=== PATIENT | female | born 1985 | race Caucasian/White ===

== ENCOUNTER 2022-04-30 18:49 | Inpatient (IN) | payer MEDICAID, SELFPAY ==
--- NOTE | ~2022-04-30 | US_ITS ---
EXAMINATION: US ABDOMEN COMPLETE CLINICAL INFORMATION: Pancreatitis. COMPARISON: CT abdomen pelvis on 04/30/2022 TECHNIQUE: Real-time imaging of the abdominal viscera. FINDINGS: PANCREAS: Mild enlargement. Limited visualization of the pancreatic head. ABDOMINAL AORTA: The proximal, mid, and distal segments are normal in caliber. INFERIOR VENA CAVA: Visualized portions are normal. LIVER: The liver is normal in size. The liver contour is normal. There is diffuse increased liver parenchymal echogenicity, consistent with hepatic steatosis. No focal hepatic lesion. There is no intrahepatic biliary duct dilatation seen. GALLBLADDER: There is adenomyomatosis of the gallbladder fundus. The gallbladder is physiologically distended without evidence of stones, sludge, polyps, wall thickening or pericholecystic fluid. COMMON BILE DUCT: Normal in caliber measuring 0.9 cm in diameter. RIGHT KIDNEY: Normal. No hydronephrosis. No renal calculi or focal parenchymal lesions. The kidney measures 10.1 cm in maximum dimension. LEFT KIDNEY: Normal. No hydronephrosis. No renal calculi or focal parenchymal lesions. The kidney measures 9.9 cm in maximum dimension. SPLEEN: Normal. The spleen measures 9.7 cm in maximum dimension. FREE FLUID: Trace US/US abdomen complete IMPRESSION: 1. Adenomyomatosis of the gallbladder fundus. 2. Enlargement of the pancreatic head consistent with pancreatitis. 3. Hepatic steatosis.
--- NOTE | ~2022-04-30 | CT_ITS ---
EXAMINATION: CT ABDOMEN AND PELVIS WITH CONTRAST CLINICAL INFORMATION: Acute pancreatitis COMPARISON: CT abdomen pelvis 05/04/2019 TECHNIQUE: Multidetector volumetric images were obtained from the superior aspect of the liver through the pubic symphysis following administration 85 mL of Omnipaque 350 intravenous contrast. Sagittal and coronal reformatted images were obtained on the technologist's workstation. Oral contrast: No This CT examination was performed using dose optimization techniques as appropriate, variously including the following: *Automated exposure control *Adjustment of mA and/or kV according to patient size (this includes techniques or standardized protocols for targeted exams where dose is matched to indication/reason for exam; i.e. extremities or head) *Use of iterative reconstruction technique DLP: Fluoroscopy for mGy-cm FINDINGS: LUNG BASES: The visualized lung bases are unremarkable. LIVER, GALLBLADDER, AND BILIARY TREE: The liver is enlarged measuring 20 cm in cephalocaudad dimension with decreased attenuation consistent with hepatic steatosis. Some small cysts are present in the liver the largest in the right lobe measuring just under 1 cm in size (3:17). No worrisome solid focal hepatic lesion or biliary ductal dilatation is present. The gallbladder is unremarkable with no evidence of radiopaque gallstones, gallbladder wall thickening, or obvious pericholecystic inflammatory changes. PANCREAS: Edematous changes are present in the pancreas with surrounding fluid extending into the left anterior pararenal space and lateral clonal fascia down into the pelvis. No pancreatic calcifications are seen. The head of the pancreas is rounded and full with a 1.7 cm cystic area within the pancreatic head, possibly a small pseudocyst. SPLEEN: Unremarkable. ADRENAL GLANDS: Unremarkable. KIDNEYS AND URETERS: The kidneys are normal in size, shape, and attenuation. Moderately extensive bilateral nephrolithiasis seen on the 2019 study is not present on the current study. No hydronephrosis, hydroureter, or calculi seen. No perinephric stranding. BLADDER: Unremarkable. GASTROINTESTINAL TRACT: The small and large bowel are unremarkable. The appendix is unremarkable. ABDOMINAL WALL: No significant hernia is appreciated. LYMPH NODES: Normal. VASCULAR: Mesenteric vessels are all patent. The splenic vein is patent. PELVIC VISCERA: Normal-appearing anteverted uterus. Free fluid is present in the cul-de-sac. OSSEOUS STRUCTURES: Unremarkable. CT/CT abdomen pelvis w con IMPRESSION: 1. Peripancreatic edema and adjacent fluid. No drainable fluid collections are seen. Findings are consistent with acute pancreatitis. Probable pseudocyst in the pancreatic head. 2. Incidental note made of an enlarged fatty liver and resolution of previously seen bilateral nephrolithiasis Fleischner guidelines were followed.
[2022-04-30 20:05] VITALS: BP 180/110; PULSE 77; RESP 18; TEMP 35.8; O2SAT 100; BMI 28.3
--- NOTE | 2022-04-30 20:07 | ECG_ITS ---
Test Reason : CHEST PAIN Blood Pressure : / mmHG Vent. Rate : 069 BPM Atrial Rate : 069 BPM P-R Int : 146 ms QRS Dur : 072 ms QT Int : 414 ms P-R-T Axes : 044 030 040 degrees QTc Int : 443 ms Normal sinus rhythm Normal ECG No previous ECGs available Referred By: Generic ED Physician Electronically Signed By:AARON SPARKS
[2022-04-30 20:24] LABS: MANUAL DIFF FLAG NO
[2022-04-30 20:27] LABS: Basophils Percent Auto 0.2 % (0-2); Eosinophils Absolute Auto 0.2 X10*3/uL (0.0-0.4); Eosinophils Percent Auto 0.9 % (0-4); Hemoglobin 14.4 g/dl (12.0-16.0); Imm Gran Abs Auto 0.09 X10*3/uL (0.00-0.03); Imm Gran Pct Auto 0.5 % (0.0-0.4); Lymphocytes Absolute Auto 1.6 X10*3/uL (1.2-4.9); Lymphocytes Percent Auto 8.6 % (20-40); Mean Corpuscular HGB Conc 36.9 g/dl (31.0-35.0); Mean Corpuscular Hemoglobin 35.9 pg (27.0-33.0); Mean Corpuscular Volume 97.3 fL (80.0-98.0); Mean Platelet Volume 9.2 fL (9.4-12.3); Monocytes Percent Auto 5.5 % (2-11); Neutrophils Absolute Auto 15.3 x10*3/uL (2.0-8.3); Neutrophils Percent Auto 84.3 % (45-73); Platelet Count 225 X10*3/uL (160-400); Red Blood Count 4.01 X10*6/uL (4.20-5.50); Red Cell Distribution Width 12.2 % (11.0-16.0); White Blood Count 18.1 X10*3/uL (4.8-10.8)
[2022-04-30 20:43] LABS: COVID-19 Test Negative (Negative); IDNOW Serial# 16C4AD1C
[2022-04-30 20:46] LABS: Troponin-I High Sensitivity 3.7 ng/L (<3.5-17.0)
[2022-04-30 20:48] LABS: Alanine Aminotransferase 19 U/L (0-31); Albumin Level 3.9 g/dL (3.5-5.0); Alkaline Phosphatase 153 U/L (39-117); Anion Gap 19 (12-20); Aspartate Amino Transferase 51 U/L (5-31); Bilirubin Direct 0.5 mg/dL (0.0-0.5); Bilirubin Total 1.2 mg/dL (0.0-1.0); Blood Urea Nitrogen 3 mg/dL (9-16); Calcium 8.4 mg/dL (8.4-10.2); Carbon Dioxide 25 mmol/L (22-29); Chloride 97 mmol/L (96-108); Estimated Glomerular Filt Rate > 60; Glucose Random 118 mg/dL (60-115); Potassium 3.2 mmol/L (3.3-5.1); Sodium 138 mmol/L (135-145)
[2022-04-30 21:05] LABS: Lipase 1655 U/L (8-78)
[2022-04-30 22:13] VITALS: BP 151/104; PULSE 84; RESP 14; TEMP 36.6; O2SAT 100
--- NOTE | 2022-04-30 22:18 | ED_ITS ---
HPI - Chest Pain General Chief Complaint: Chest Pain Stated Complaint: Abdominal Pain Time Seen by Provider: 04/30/22 22:18 Related Data Allergies Allergy/AdvReac Type Severity Reaction Status Date / Time No Known Allergies Allergy Unverified 05/19/20 18:33 [facility] Social History Social History Alcohol intake: current Alcohol intake frequency: a few times a week Patient Tobacco Use Status: Current everyday Tobacco user Smoked in Last 30 Days: Yes Use of substances other than those prescribed or required for medical reasons: No Physical Exam Vital Signs: Vital Signs: Last Vital Signs Temp 97.8 F 04/30/22 22:13 Pulse 84 04/30/22 22:13 Resp 14 04/30/22 22:13 BP 151/104 H 04/30/22 22:13 Pulse Ox 100 04/30/22 22:13 O2 Del Method 04/30/22 22:13 BMI result Body Mass Index 28.3 MDM - Chest Pain Lab Data Result diagrams: 04/30/22 20:20 04/30/22 20:20 Labs: Lab Results 04/30/22 04/30/22 04/30/22 Range/Units 20:20 20:20 20:20 WBC 18.1 H (4.8-10.8) X10*3/uL RBC 4.01 L (4.20-5.50) X10*6/uL Hgb 14.4 (12.0-16.0) g/dl Hct 39.0 (37.0-47.0) % MCV 97.3 (80.0-98.0) fL MCH 35.9 H (27.0-33.0) pg MCHC 36.9 H (31.0-35.0) g/dl RDW 12.2 (11.0-16.0) % Plt Count 225 (160-400) X10*3/uL MPV 9.2 L (9.4-12.3) fL Immature Gran % (Auto) 0.5 H (0.0-0.4) % Neut % (Auto) 84.3 H (45-73) % Lymph % (Auto) 8.6 L (20-40) % [place] % (Auto) 5.5 (2-11) % Eos % (Auto) 0.9 (0-4) % Baso % (Auto) 0.2 (0-2) % Lymph # (Auto) 1.6 (1.2-4.9) X10*3/uL [place] # (Auto) 1.0 (0.1-1.2) X10*3/uL Eos # (Auto) 0.2 (0.0-0.4) X10*3/uL Baso # (Auto) 0.0 (0.0-0.2) X10*3/uL Abs Immat Gran (auto) 0.09 H (0.00-0.03) X10*3/uL Absolute Neuts (auto) 15.3 H (2.0-8.3) x10*3/uL Absolute Nucleated RBC 0.000 (0.0-0.012) X10*3/uL Nucleated RBC % (auto) 0.0 (0.0-0.2) /100WBC Sodium 138 (135-145) mmol/L Potassium 3.2 L (3.3-5.1) mmol/L Chloride 97 (96-108) mmol/L Carbon Dioxide 25 (22-29) mmol/L Anion Gap 19 (12-20) BUN 3 L (9-16) mg/dL Creatinine 0.74 (0.5-1.4) mg/dL Estim Creat Clear Calc 110.0 Estimated GFR > 60 Random Glucose 118 H (60-115) mg/dL Calcium 8.4 (8.4-10.2) mg/dL Total Bilirubin 1.2 H (0.0-1.0) mg/dL Direct Bilirubin 0.5 (0.0-0.5) mg/dL AST 51 H (5-31) U/L ALT 19 (0-31) U/L Alkaline Phosphatase 153 H (39-117) U/L Troponin I High Sens 3.7 (<3.5-17.0) ng/L Total Protein 7.0 (6.5-8.0) g/dL Albumin 3.9 (3.5-5.0) g/dL Lipase 1655 H (8-78) U/L COVID-19 (STEPHENIE) (Negative) COVID-19 Clin Com 04/30/22 Range/Units 20:20 WBC (4.8-10.8) X10*3/uL RBC (4.20-5.50) X10*6/uL Hgb (12.0-16.0) g/dl Hct (37.0-47.0) % MCV (80.0-98.0) fL MCH (27.0-33.0) pg MCHC (31.0-35.0) g/dl RDW (11.0-16.0) % Plt Count (160-400) X10*3/uL MPV (9.4-12.3) fL Immature Gran % (Auto) (0.0-0.4) % Neut % (Auto) (45-73) % Lymph % (Auto) (20-40) % [place] % (Auto) (2-11) % Eos % (Auto) (0-4) % Baso % (Auto) (0-2) % Lymph # (Auto) (1.2-4.9) X10*3/uL [place] # (Auto) (0.1-1.2) X10*3/uL Eos # (Auto) (0.0-0.4) X10*3/uL Baso # (Auto) (0.0-0.2) X10*3/uL Abs Immat Gran (auto) (0.00-0.03) X10*3/uL Absolute Neuts (auto) (2.0-8.3) x10*3/uL Absolute Nucleated RBC (0.0-0.012) X10*3/uL Nucleated RBC % (auto) (0.0-0.2) /100WBC Sodium (135-145) mmol/L Potassium (3.3-5.1) mmol/L Chloride (96-108) mmol/L Carbon Dioxide (22-29) mmol/L Anion Gap (12-20) BUN (9-16) mg/dL Creatinine (0.5-1.4) mg/dL Estim Creat Clear Calc Estimated GFR Random Glucose (60-115) mg/dL Calcium (8.4-10.2) mg/dL Total Bilirubin (0.0-1.0) mg/dL Direct Bilirubin (0.0-0.5) mg/dL AST (5-31) U/L ALT (0-31) U/L Alkaline Phosphatase (39-117) U/L Troponin I High Sens (<3.5-17.0) ng/L Total Protein (6.5-8.0) g/dL Albumin (3.5-5.0) g/dL Lipase (8-78) U/L COVID-19 (STEPHENIE) Negative (Negative) COVID-19 Clin Com See Note
--- NOTE | 2022-04-30 22:28 | PC.NURSE ---
Pt started having chest and abdominal pain two days ago. n/v earlier today, vomiting x1.
--- NOTE | 2022-04-30 22:34 | ED.ABDPAIN ---
HPI - Abdominal Pain General Chief Complaint: Chest Pain Stated Complaint: Abdominal Pain Time Seen by Provider: 04/30/22 22:18 Source: patient Mode of arrival: ambulatory Limitations: no limitations History of Present Illness HPI narrative: Patient 36yrs is old female with history of alcohol use last drink was 3 days ago noticed pain in mid abdomen since yesterday with nausea radiating to the back and upper abdomen pain gets worse when she eats or drinks patient patient been having off and on dull pain for last 1 month getting worse now no fever or chills no history of gallstone /pancreatitis in the past Related Data Allergies Allergy/AdvReac Type Severity Reaction Status Date / Time No Known Allergies Allergy Unverified 05/19/20 18:33 Review of Systems Review of Systems Yes all other systems are reviewed and are negative [facility] Social History Social History Alcohol intake: current Alcohol intake frequency: a few times a week Patient Tobacco Use Status: Current everyday Tobacco user Smoked in Last 30 Days: Yes Use of substances other than those prescribed or required for medical reasons: No Advance Directives: No Advance Directives Information Provided: No Physical Exam ED Vital Signs: Vital Signs - 24 hr 04/30/22 20:05 04/30/22 22:13 04/30/22 22:49 Temperature 96.4 F L 97.8 F Pulse Rate 77 84 Respiratory Rate 18 14 15 Blood Pressure 180/110 H 151/104 H Pulse Oximetry 100 100 Oxygen Delivery Method Room Air Room Air BMI result Body Mass Index 28.3 Appearance: Alert. Oriented X3. In moderate distress Eyes: PERRLA, No Nystagmus no pallor or icterus ENT: Pharynx normal. Oral Mucosa moist Neck: Normal inspection. Neck supple. CVS: Normal heart rate and rhythm. Pulses normal. Respiratory: No respiratory distress. Equal air entry bilateral, no wheezing/rales/rhonchi Abdomen: Soft, tenderness mid abdomen with guarding no rebound tenderness Bowel sounds are present, no mass palpable, no CVA tenderness Skin: Skin warm and dry. Normal skin color. Normal skin turgor. Extremities: No lower extremity edema. No calf tenderness Neuro: Oriented X 3. MDM - Abdominal Pain MDM Narrative Medical decision making narrative: Patient's elevated lipase alcohol use clinically a pancreatitis will get CT scan abdomen to rule out gallstones. Plan to admit for IV hydration and pain med 0035 CT scan showed diffuse pancreatitis with small pseudocyst will admit patient for IV hydration pain management Differential Diagnosis Differential diagnosis: Likely pancreatitis and peptic ulcer disease Lab Data Attestation: I reviewed the patient's lab results. Result diagrams: 04/30/22 20:20 04/30/22 20:20 Labs: Lab Results 04/30/22 04/30/22 04/30/22 Range/Units 20:20 20:20 20:20 WBC 18.1 H (4.8-10.8) X10*3/uL RBC 4.01 L (4.20-5.50) X10*6/uL Hgb 14.4 (12.0-16.0) g/dl Hct 39.0 (37.0-47.0) % MCV 97.3 (80.0-98.0) fL MCH 35.9 H (27.0-33.0) pg MCHC 36.9 H (31.0-35.0) g/dl RDW 12.2 (11.0-16.0) % Plt Count 225 (160-400) X10*3/uL MPV 9.2 L (9.4-12.3) fL Immature Gran % (Auto) 0.5 H (0.0-0.4) % Neut % (Auto) 84.3 H (45-73) % Lymph % (Auto) 8.6 L (20-40) % [place] % (Auto) 5.5 (2-11) % Eos % (Auto) 0.9 (0-4) % Baso % (Auto) 0.2 (0-2) % Lymph # (Auto) 1.6 (1.2-4.9) X10*3/uL [place] # (Auto) 1.0 (0.1-1.2) X10*3/uL Eos # (Auto) 0.2 (0.0-0.4) X10*3/uL Baso # (Auto) 0.0 (0.0-0.2) X10*3/uL Abs Immat Gran (auto) 0.09 H (0.00-0.03) X10*3/uL Absolute Neuts (auto) 15.3 H (2.0-8.3) x10*3/uL Absolute Nucleated RBC 0.000 (0.0-0.012) X10*3/uL Nucleated RBC % (auto) 0.0 (0.0-0.2) /100WBC Sodium 138 (135-145) mmol/L Potassium 3.2 L (3.3-5.1) mmol/L Chloride 97 (96-108) mmol/L Carbon Dioxide 25 (22-29) mmol/L Anion Gap 19 (12-20) BUN 3 L (9-16) mg/dL Creatinine 0.74 (0.5-1.4) mg/dL Estim Creat Clear Calc 110.0 Estimated GFR > 60 Random Glucose 118 H (60-115) mg/dL Calcium 8.4 (8.4-10.2) mg/dL Total Bilirubin 1.2 H (0.0-1.0) mg/dL Direct Bilirubin 0.5 (0.0-0.5) mg/dL AST 51 H (5-31) U/L ALT 19 (0-31) U/L Alkaline Phosphatase 153 H (39-117) U/L Troponin I High Sens 3.7 (<3.5-17.0) ng/L Total Protein 7.0 (6.5-8.0) g/dL Albumin 3.9 (3.5-5.0) g/dL Lipase 1655 H (8-78) U/L Beta HCG, Quant < 2 mIU/mL COVID-19 (STEPHENIE) (Negative) COVID-19 Clin Com 04/30/22 Range/Units 20:20 WBC (4.8-10.8) X10*3/uL RBC (4.20-5.50) X10*6/uL Hgb (12.0-16.0) g/dl Hct (37.0-47.0) % MCV (80.0-98.0) fL MCH (27.0-33.0) pg MCHC (31.0-35.0) g/dl RDW (11.0-16.0) % Plt Count (160-400) X10*3/uL MPV (9.4-12.3) fL Immature Gran % (Auto) (0.0-0.4) % Neut % (Auto) (45-73) % Lymph % (Auto) (20-40) % [place] % (Auto) (2-11) % Eos % (Auto) (0-4) % Baso % (Auto) (0-2) % Lymph # (Auto) (1.2-4.9) X10*3/uL [place] # (Auto) (0.1-1.2) X10*3/uL Eos # (Auto) (0.0-0.4) X10*3/uL Baso # (Auto) (0.0-0.2) X10*3/uL Abs Immat Gran (auto) (0.00-0.03) X10*3/uL Absolute Neuts (auto) (2.0-8.3) x10*3/uL Absolute Nucleated RBC (0.0-0.012) X10*3/uL Nucleated RBC % (auto) (0.0-0.2) /100WBC Sodium (135-145) mmol/L Potassium (3.3-5.1) mmol/L Chloride (96-108) mmol/L Carbon Dioxide (22-29) mmol/L Anion Gap (12-20) BUN (9-16) mg/dL Creatinine (0.5-1.4) mg/dL Estim Creat Clear Calc Estimated GFR Random Glucose (60-115) mg/dL Calcium (8.4-10.2) mg/dL Total Bilirubin (0.0-1.0) mg/dL Direct Bilirubin (0.0-0.5) mg/dL AST (5-31) U/L ALT (0-31) U/L Alkaline Phosphatase (39-117) U/L Troponin I High Sens (<3.5-17.0) ng/L Total Protein (6.5-8.0) g/dL Albumin (3.5-5.0) g/dL Lipase (8-78) U/L Beta HCG, Quant mIU/mL COVID-19 (STEPHENIE) Negative (Negative) COVID-19 Clin Com See Note Discharge Plan Discharge Clinical Impression: Acute alcoholic pancreatitis Patient Disposition: Admitted As Inpatient
[2022-04-30] MEDS: 0.9 % Sodium Chloride 1,000 ML 999 ML IV (22:42)
[2022-04-30] MEDS: Famotidine/PF 20 MG/2 ML VIAL IVPUSH (22:47)
[2022-04-30] MEDS: ondansetron HCL 4 MG/2 ML VIAL IVPUSH (22:48)
[2022-04-30 22:49] VITALS: RESP 15
[2022-04-30] MEDS: Morphine Sulfate 4 MG/ML CARTRIDGE IVPUSH (22:49)
--- NOTE | 2022-04-30 23:01 | PC.NURSE ---
Administered meds per MAR.
[2022-04-30 23:06] LABS: HCG Quantitative < 2 mIU/mL
[2022-04-30] MEDS: iohexoL 350 MG/ML 100 ML INFUS..BTL 85 ML IV (23:40)
--- NOTE | 2022-05-01 | ECG_ITS ---
Test Reason : hypokalemia Blood Pressure : / mmHG Vent. Rate : 075 BPM Atrial Rate : 075 BPM P-R Int : 146 ms QRS Dur : 076 ms QT Int : 408 ms P-R-T Axes : 036 030 026 degrees QTc Int : 455 ms Normal sinus rhythm Normal ECG When compared with ECG of 30-APR-2022 20:09, T wave inversion no longer evident in Septal leads Referred By: Jose Eduardo Blevins Electronically Signed By:AARON SPARKS
[2022-05-01] MEDS: 0.9 % Sodium Chloride 1,000 ML 999 ML IV (00:38)
--- NOTE | 2022-05-01 00:39 | P.HPHOSP_ITS ---
History of Present Illness Date of Service: 05/01/22 Chief Complaint: abd pain 36-year-old female with a past medical history of hypertension, tobacco dependence, alcohol abuse, opiate dependence on Suboxone presented to the hospital today with a chief complaint of abdominal pain. Patient reports that for the past 3 days she has been having abdominal pain located in the epigastrium, nonradiating, associated nausea and vomiting. Denies any diarrhea. Denies any blood in the vomitus. Mentioned that she had alcohol on last Saturday. Denies any fever chills. Denies any chest pain or palpitations. Review of all other systems is negative except mentioned above ER course: Per ER team patient noted to have epigastric tenderness; CT scan showed findings concerning for acute pancreatitis along with the pseudocyst from. Lipase elevated to 60 0s. Patient was given pain medications, Zosyn. Admitted to the hospital for further management. [facility] Social History Alcohol intake: current Alcohol intake frequency: a few times a week Patient Tobacco Use Status: Current everyday Tobacco user Smoked in Last 30 Days: Yes Use of substances other than those prescribed or required for medical reasons: No Advance Directives: No Advance Directives Information Provided: No Meds Allergies Allergy/AdvReac Type Severity Reaction Status Date / Time No Known Allergies Allergy Unverified 05/19/20 18:33 Active Medications: Current Medications Piperacillin Sod/Tazobactam (Sod 3.375 gm/ Sodium Chloride) 50 mls @ 100 mls/hr IV ONCE ONE Stop: 05/01/22 01:01 Physical Exam Vital Signs and Narrative: Vital Signs: Last Vital Signs Temp 97.8 F 04/30/22 22:13 Pulse 84 04/30/22 22:13 Resp 15 04/30/22 22:49 BP 151/104 H 04/30/22 22:13 Pulse Ox 100 04/30/22 22:13 O2 Del Method 04/30/22 22:13 BMI result Body Mass Index 28.3 Gen: Appears be in no acute distress HEENT: NCAT, Moist mucosa. Pulmonary: Vesicular breath sounds, fair air entry CVS: Normal S1-S2 Abdomen: BS+, Soft, tender in the epigastrium, no guarding no rigidity Extremities: Warm well perfused Neuro: Alert and awake. Results Labs CBC and Chem 7: 05/01/22 04:42 05/01/22 04:42 Labs: Laboratory Results - last 24 hr 04/30/22 04/30/22 04/30/22 20:20 20:20 20:20 MCV 97.3 MCH 35.9 H MCHC 36.9 H RDW 12.2 Plt Count 225 MPV 9.2 L Immature Gran % (Auto) 0.5 H Neut % (Auto) 84.3 H Lymph % (Auto) 8.6 L [place] % (Auto) 5.5 Eos % (Auto) 0.9 Baso % (Auto) 0.2 Lymph # (Auto) 1.6 [place] # (Auto) 1.0 Eos # (Auto) 0.2 Baso # (Auto) 0.0 Abs Immat Gran (auto) 0.09 H Absolute Neuts (auto) 15.3 H Absolute Nucleated RBC 0.000 Nucleated RBC % (auto) 0.0 Anion Gap 19 Estim Creat Clear Calc 110.0 Estimated GFR > 60 Random Glucose 118 H Calcium 8.4 Total Bilirubin 1.2 H Direct Bilirubin 0.5 AST 51 H ALT 19 Alkaline Phosphatase 153 H Total Protein 7.0 Albumin 3.9 Lipase 1655 H Beta HCG, Quant < 2 COVID-19 (STEPHENIE) Negative COVID-19 Clin Com See Note Imaging Radiologist's Impressions: Impressions Abdomen/Pelvis CT 04/30/22 23:40 IMPRESSION: 1. Peripancreatic edema and adjacent fluid. No drainable fluid collections are seen. Findings are consistent with acute pancreatitis. Probable pseudocyst in the pancreatic head. 2. Incidental note made of an enlarged fatty liver and resolution of previously seen bilateral nephrolithiasis Fleischner guidelines were followed. Assessment and Plan (1) Acute alcoholic pancreatitis: Status: Acute Plan 36-year-old female with a past medical history of hypertension, tobacco dependence, alcohol abuse, opiate dependence on Suboxone presented to the hospital today with a chief complaint of abdominal pain. Noted to have acute pancreatitis. Admitted for further management. Acute pancreatitis: In the setting of alcohol use. CT scan showed peripancreatic edema and adjacent fluid-no drainable fluid collection; probable pseudocyst in the pancreatic head. Pain control IV fluids General surgery consult Will also consult Gastroenterology Hypokalemia: Likely in setting of poor intake. Repleted. Will also give magnesium IV x1. History of opiate dependence: Patient on Suboxone. Addiction Medicine consult. DVT prophylaxis: Lovenox Code status: Full code Quality Stroke Does the patient have a stroke diagnosis?: No VTE Prior VTE?: No VTE Risk Level:: Medical - moderate - high VTE Device Contraindication: Treatment Not Indicated VTE Drug Contraindication: N/A - Med Ordered
[2022-05-01 01:14] LABS: Lactic Acid 1.4 mmol/L (0.5-2.0)
[2022-05-01] MEDS: Enoxaparin Sodium 40 MG/0.4 ML SYRINGE SUBCUT (01:28)
[2022-05-01] MEDS: Piperacillin Sodium/Tazobactam 3.375 GM in 0.9 % Sodium Chloride 50 ML IV (01:28)
[2022-05-01 01:34] VITALS: BP 105/63; PULSE 74; RESP 16; TEMP 36.8; O2SAT 99
[2022-05-01] MEDS: 0.9 % Sodium Chloride 1,000 ML 100 ML IVCONT ×3 (02:15→17:50)
--- NOTE | 2022-05-01 02:32 | PC.NURSE ---
Asministered meds per OCT
--- NOTE | 2022-05-01 02:35 | PC.NURSE ---
No pain reported at this time. Pt is sleeping and being allowed to sleep.
[2022-05-01 05:02] LABS: MANUAL DIFF FLAG NO
[2022-05-01 05:03] LABS: Basophils Percent Auto 0.2 % (0-2); Eosinophils Absolute Auto 0.5 X10*3/uL (0.0-0.4); Eosinophils Percent Auto 3.2 % (0-4); Hematocrit 30.3 % (37.0-47.0); Hemoglobin 11.1 g/dl (12.0-16.0); Imm Gran Abs Auto 0.06 X10*3/uL (0.00-0.03); Imm Gran Pct Auto 0.4 % (0.0-0.4); Lymphocytes Absolute Auto 1.9 X10*3/uL (1.2-4.9); Lymphocytes Percent Auto 13.4 % (20-40); Mean Corpuscular HGB Conc 36.6 g/dl (31.0-35.0); Mean Corpuscular Hemoglobin 35.9 pg (27.0-33.0); Mean Corpuscular Volume 98.1 fL (80.0-98.0); Mean Platelet Volume 9.7 fL (9.4-12.3); Monocytes Absolute Auto 0.9 X10*3/uL (0.1-1.2); Monocytes Percent Auto 6.3 % (2-11); Neutrophils Absolute Auto 10.6 x10*3/uL (2.0-8.3); Neutrophils Percent Auto 76.5 % (45-73); Platelet Count 173 X10*3/uL (160-400); Red Blood Count 3.09 X10*6/uL (4.20-5.50); Red Cell Distribution Width 12.2 % (11.0-16.0); White Blood Count 13.9 X10*3/uL (4.8-10.8)
[2022-05-01 05:24] LABS: Anion Gap 14 (12-20); Blood Urea Nitrogen 2 mg/dL (9-16); Calcium 6.6 mg/dL (8.4-10.2); Carbon Dioxide 24 mmol/L (22-29); Chloride 107 mmol/L (96-108); Creatinine Clr Calc Pharmacy 133.4; Estimated Glomerular Filt Rate > 60; Glucose Random 102 mg/dL (60-115); Potassium 2.5 mmol/L (3.3-5.1); Sodium 142 mmol/L (135-145)
[2022-05-01] MEDS: Potassium Chloride ER 20 MEQ TAB.ER.PRT 40 MEQ PO (05:59)
[2022-05-01] MEDS: Potassium Chloride Packet 20 MEQ PACKET 40 MEQ PO (06:40)
[2022-05-01] MEDS: Magnesium Sulfate/D5W 1 GM/100 ML PIGGYBACK IV (06:42)
[2022-05-01] MEDS: 0.9 % Sodium Chloride Flush 3 ML SYRINGE IVFLUSH ×2 (07:56→17:46)
[2022-05-01 08:00] VITALS: BP 138/98; PULSE 78; RESP 17; TEMP 36.6; O2SAT 98
--- NOTE | 2022-05-01 08:02 | PHA.MEDREC ---
Pharmacy Consult ? Medication Reconciliation Pharmacy has completed the medication reconciliation. Patient reported all medications. Lindsey Richardosn, [facility]
[2022-05-01] MEDS: lisinopriL 10 MG TABLET PO (08:30)
[2022-05-01] MEDS: Multivitamin TABLET 1 TAB PO (08:30)
[2022-05-01] MEDS: HYDROmorphone HCl 0.5 MG/0.5 ML SYRINGE IVPUSH ×3 (08:33→18:51)
[2022-05-01] MEDS: Buprenorphine/Naloxone 8/2 mg FILM 1 FILM SUBLINGUAL (08:38)
--- NOTE | 2022-05-01 09:57 | MHC.CM.PN ---
CM met with Patient at bedside; Patient lives in a house with her and 2 year old Daughter and she is typically functionally independent and working as a Cook at a local restaurant. Patient has a history of Opiate dependence and she receives her Suboxone from [facility] in in [place]. Patient reports using Alcohol only a few times/week. Patient states that her Mother and her /Valery are her HCP Agents. Patient has received moderna/Covid vax X3 and her PCP is from [facility] in [place], [place].
--- NOTE | 2022-05-01 10:29 | HO.PM.IMPN ---
Subjective Subjective Date of Service: 05/01/22 Interval History: f/u on acute pancreatitis interval history: persistent abdominal pain, Review of Systems no n/v, abd pain, no fever Physical Exam Vital Signs: Vital Signs: Last Vital Signs Temp 97.9 F 05/01/22 08:00 Pulse 78 05/01/22 08:00 Resp 17 05/01/22 08:00 BP 138/98 H 05/01/22 08:00 Pulse Ox 98 05/01/22 08:00 O2 Del Method 05/01/22 08:00 BMI result Body Mass Index 28.3 General: AO X 3, no acute distress Resp: CTA bilateral CVS: S1,S2,RRR GI: +BS, NT, no distention Skin: No rash Neuro: motor grossly intact Psych: appropriate affect Objective Data Active Medications Acetaminophen (Acetaminophen 325 Mg Tablet) 650 mg PO Q6H PRN PRN Reason: Pain, Mild (Pain Scale 1-3) Buprenorphine/Naloxone (Buprenorphine/Naloxone 8/2 Mg Film) 1 film SUBLINGUAL DAILY [facility] Last Admin: 05/01/22 08:38 Dose: 1 film Documented By: JIMI Enoxaparin Sodium (Enoxaparin Sodium 40 Mg/0.4 Ml Syringe) 40 mg SUBCUT Q24H [facility] Last Admin: 05/01/22 01:28 Dose: 40 mg Documented By: RODRIGUEZ Hydromorphone HCl (Hydromorphone Hcl 0.5 Mg/0.5 Ml Syringe) 0.5 mg IVPUSH Q4H PRN; Protocol PRN Reason: Pain, Severe (Pain Scale 7-10) Last Admin: 05/01/22 08:33 Dose: 0.5 mg Documented By: JIMI Sodium Chloride (Ns) 1,000 mls @ 100 mls/hr IVCONT .Q10H [facility] Last Admin: 05/01/22 07:59 Dose: 100 mls/hr Documented By: JIMI Lisinopril (Lisinopril 10 Mg Tablet) 10 mg PO DAILY [facility]; Protocol Last Admin: 05/01/22 08:30 Dose: 10 mg Documented By: JIMI Melatonin (Melatonin 3 Mg Tablet) 6 mg PO BEDTIME PRN PRN Reason: Insomnia Multivitamins/Vitamin C (Multivitamin Tablet) 1 tab PO DAILY [facility] Last Admin: 05/01/22 08:30 Dose: 1 tab Documented By: JIMI Senna (Sennosides 8.6 Mg Tablet) 17.2 mg PO BEDTIME PRN PRN Reason: Constipation Sodium Chloride (0.9 % Sodium Chloride Flush 3 Ml Syringe) 3 ml IVFLUSH QSHIFT [facility] Last Admin: 05/01/22 07:56 Dose: 3 ml Documented By: JIMI Labs CBC & Chem 7: 05/01/22 04:42 05/01/22 04:42 Labs: Laboratory Results - last 24 hr 04/30/22 04/30/22 04/30/22 20:20 20:20 20:20 MCV 97.3 MCH 35.9 H MCHC 36.9 H RDW 12.2 Plt Count 225 MPV 9.2 L Immature Gran % (Auto) 0.5 H Neut % (Auto) 84.3 H Lymph % (Auto) 8.6 L [place] % (Auto) 5.5 Eos % (Auto) 0.9 Baso % (Auto) 0.2 Lymph # (Auto) 1.6 [place] # (Auto) 1.0 Eos # (Auto) 0.2 Baso # (Auto) 0.0 Abs Immat Gran (auto) 0.09 H Absolute Neuts (auto) 15.3 H Absolute Nucleated RBC 0.000 Nucleated RBC % (auto) 0.0 Anion Gap 19 Estim Creat Clear Calc 110.0 Estimated GFR > 60 Random Glucose 118 H Lactic Acid Calcium 8.4 Total Bilirubin 1.2 H Direct Bilirubin 0.5 AST 51 H ALT 19 Alkaline Phosphatase 153 H Total Protein 7.0 Albumin 3.9 Lipase 1655 H Beta HCG, Quant < 2 COVID-19 ([facility]) Negative COVID-19 Clin Com See Note 05/01/22 05/01/22 05/01/22 00:41 04:42 04:42 MCV 98.1 H MCH 35.9 H MCHC 36.6 H RDW 12.2 Plt Count 173 MPV 9.7 Immature Gran % (Auto) 0.4 Neut % (Auto) 76.5 H Lymph % (Auto) 13.4 L [place] % (Auto) 6.3 Eos % (Auto) 3.2 Baso % (Auto) 0.2 Lymph # (Auto) 1.9 [place] # (Auto) 0.9 Eos # (Auto) 0.5 H Baso # (Auto) 0.0 Abs Immat Gran (auto) 0.06 H Absolute Neuts (auto) 10.6 H Absolute Nucleated RBC 0.000 Nucleated RBC % (auto) 0.0 Anion Gap 14 Estim Creat Clear Calc 133.4 Estimated GFR > 60 Random Glucose 102 Lactic Acid 1.4 Calcium 6.6 L D Total Bilirubin Direct Bilirubin AST ALT Alkaline Phosphatase Total Protein Albumin Lipase Beta HCG, Quant COVID-19 ([facility]) COVID-19 Clin Com Assessment and Plan (1) Acute alcoholic pancreatitis: Status: Acute Plan 36-year-old female with a past medical history of hypertension, tobacco dependence, alcohol abuse, opiate dependence on Suboxone presented to the hospital today with a chief complaint of abdominal pain. Noted to have acute pancreatitis. Admitted for further management. Acute pancreatitis: In the setting of alcohol use. CT scan showed peripancreatic edema and adjacent fluid-no drainable fluid collection; probable pseudocyst in the pancreatic head. Pain control IV fluids General surgery consult Will also consult Gastroenterology Hypokalemia: Likely in setting of poor intake. Repleted. Will also give magnesium IV x1. History of opiate dependence: Patient on Suboxone. Addiction Medicine consult. DVT prophylaxis: Lovenox Code status: Full code Quality Stroke Does the patient have a stroke diagnosis?: No VTE Prior VTE?: No VTE Risk Level:: Medical - moderate - high VTE Device Contraindication: Treatment Not Indicated VTE Drug Contraindication: N/A - Med Ordered
[2022-05-01 11:15] VITALS: BP 137/97; PULSE 72; RESP 17; TEMP 37.3; O2SAT 98
[2022-05-01 15:52] VITALS: BP 140/94; PULSE 68; RESP 17; TEMP 36.7; O2SAT 97
--- NOTE | 2022-05-01 16:01 | PM.CNGS ---
History of Present Illness Consult details Consult date: 05/01/22 Narrative: 36-year-old female with known hypertension, on Suboxone, admitted last night because of epigastric pain. She states that this has been going for about 2-3 days prior to admission. She says that she had been drinking alcohol Saturday and Saturday, with beer and fireball. She says that starting Saturday, she had been having this upper abdominal pain. This had persisted yesterday so she came to the emergency room. She describes the pain as moderate to severe. She had a CAT scan showing findings consistent with acute pancreatitis with a question of pseudocyst. She says that she does not recall history of gallstones. She denies a history of hypertriglyceridemia. Review of Systems Constitutional: Constitutional: Denies chills and Denies fever(s) Cardiovascular: Cardiovascular: Denies chest pain, Denies dyspnea and Denies dyspnea on exertion Respiratory: Respiratory: Denies cough, Denies dyspnea and Denies dyspnea on exertion Gastrointestinal: Gastrointestinal: Denies hematochezia and Denies change in bowel habits Genitourinary: Genitourinary: Denies hematuria Musculoskeletal: Musculoskeletal: Denies back pain and Denies limited range of motion Neurologic: Denies focal weakness and Denies convulsions Psychiatric: Psychiatric: Denies depression and Denies mood swings PMFSH Social History Social History Household Members: Family Housing: House Do you presently have visiting nurse or other home services: No Alcohol intake: current Alcohol intake frequency: a few times a week Patient Tobacco Use Status: Current everyday Tobacco user Tobacco use type: Cigarette e-Cigarette/Vaping Use: Never Used Second Hand Smoke Exposure: No service: No Current occupational status: employed Meds Allergies Allergy/AdvReac Type Severity Reaction Status Date / Time No Known Allergies Allergy Unverified 05/19/20 18:33 Active Medications: Current Medications Acetaminophen (Acetaminophen 325 Mg Tablet) 650 mg PO Q6H PRN PRN Reason: Pain, Mild (Pain Scale 1-3) Buprenorphine/Naloxone (Buprenorphine/Naloxone 8/2 Mg Film) 1 film SUBLINGUAL DAILY [facility] Last Admin: 05/01/22 08:38 Dose: 1 film Enoxaparin Sodium (Enoxaparin Sodium 40 Mg/0.4 Ml Syringe) 40 mg SUBCUT Q24H [facility] Last Admin: 05/01/22 01:28 Dose: 40 mg Hydromorphone HCl (Hydromorphone Hcl 0.5 Mg/0.5 Ml Syringe) 0.5 mg IVPUSH Q4H PRN; Protocol PRN Reason: Pain, Severe (Pain Scale 7-10) Last Admin: 05/01/22 13:58 Dose: 0.5 mg Sodium Chloride (Ns) 1,000 mls @ 100 mls/hr IVCONT .Q10H [facility] Last Admin: 05/01/22 07:59 Dose: 100 mls/hr Lisinopril (Lisinopril 10 Mg Tablet) 10 mg PO DAILY [facility]; Protocol Last Admin: 05/01/22 08:30 Dose: 10 mg Melatonin (Melatonin 3 Mg Tablet) 6 mg PO BEDTIME PRN PRN Reason: Insomnia Multivitamins/Vitamin C (Multivitamin Tablet) 1 tab PO DAILY [facility] Last Admin: 05/01/22 08:30 Dose: 1 tab Senna (Sennosides 8.6 Mg Tablet) 17.2 mg PO BEDTIME PRN PRN Reason: Constipation Sodium Chloride (0.9 % Sodium Chloride Flush 3 Ml Syringe) 3 ml IVFLUSH QSHIFT [facility] Last Admin: 05/01/22 07:56 Dose: 3 ml Home Medications Medication Instructions Recorded Confirmed Last Taken Type buprenorphine 8 mg-naloxone 2 mg 1 strip sublingual DAILY 05/01/22 05/01/22 04/30/22 History sublingual film (Suboxone) lisinopril 10 mg tablet 1 tab PO DAILY 05/01/22 05/01/22 04/30/22 History multivitamin 1 tab PO DAILY 05/01/22 05/01/22 04/30/22 History Physical Exam Vital Signs: Vital Signs: Last Vital Signs Temp 98.0 F 05/01/22 15:52 Pulse 68 05/01/22 15:52 Resp 17 05/01/22 15:52 BP 140/94 H 05/01/22 15:52 Pulse Ox 97 05/01/22 15:52 O2 Del Method 05/01/22 15:52 BMI result Body Mass Index 28.3 Const: Other: Appears a little uncomfortable General: no acute distress Orientation/consciousness: patient oriented x3 Neck: Neck: Yes no lymphadenopathy Resp: Auscultation: clear to auscultation bilaterally Cardio: Rhythm: regular rhythm GI: Other: Tender in the epigastric area, no guarding or rebound Palpation (GI): Soft to palpation, nontender and no guarding Neuro: General: patient oriented x3 Results Labs Result diagrams: 05/01/22 04:42 05/02/22 16:39 Labs: Abnormal lab results 04/30/22 04/30/22 05/01/22 Range/Units 20:20 20:20 04:42 WBC 18.1 H 13.9 H (4.8-10.8) X10*3/uL RBC 4.01 L 3.09 L D (4.20-5.50) X10*6/uL Hgb 11.1 L D (12.0-16.0) g/dl Hct 30.3 L D (37.0-47.0) % MCV 98.1 H (80.0-98.0) fL MCH 35.9 H 35.9 H (27.0-33.0) pg MCHC 36.9 H 36.6 H (31.0-35.0) g/dl MPV 9.2 L (9.4-12.3) fL Immature Gran % (Auto) 0.5 H (0.0-0.4) % Neut % (Auto) 84.3 H 76.5 H (45-73) % Lymph % (Auto) 8.6 L 13.4 L (20-40) % Eos # (Auto) 0.5 H (0.0-0.4) X10*3/uL Abs Immat Gran (auto) 0.09 H 0.06 H (0.00-0.03) X10*3/uL Absolute Neuts (auto) 15.3 H 10.6 H (2.0-8.3) x10*3/uL Potassium 3.2 L (3.3-5.1) mmol/L BUN 3 L (9-16) mg/dL Random Glucose 118 H (60-115) mg/dL Calcium (8.4-10.2) mg/dL Total Bilirubin 1.2 H (0.0-1.0) mg/dL AST 51 H (5-31) U/L Alkaline Phosphatase 153 H (39-117) U/L Lipase 1655 H (8-78) U/L 05/01/22 Range/Units 04:42 WBC (4.8-10.8) X10*3/uL RBC (4.20-5.50) X10*6/uL Hgb (12.0-16.0) g/dl Hct (37.0-47.0) % MCV (80.0-98.0) fL MCH (27.0-33.0) pg MCHC (31.0-35.0) g/dl MPV (9.4-12.3) fL Immature Gran % (Auto) (0.0-0.4) % Neut % (Auto) (45-73) % Lymph % (Auto) (20-40) % Eos # (Auto) (0.0-0.4) X10*3/uL Abs Immat Gran (auto) (0.00-0.03) X10*3/uL Absolute Neuts (auto) (2.0-8.3) x10*3/uL Potassium 2.5 L* D (3.3-5.1) mmol/L BUN 2 L (9-16) mg/dL Random Glucose (60-115) mg/dL Calcium 6.6 L D (8.4-10.2) mg/dL Total Bilirubin (0.0-1.0) mg/dL AST (5-31) U/L Alkaline Phosphatase (39-117) U/L Lipase (8-78) U/L Short CBC 04/30/22 05/01/22 Range/Units 20:20 04:42 WBC 18.1 H 13.9 H (4.8-10.8) X10*3/uL Hgb 14.4 11.1 L D (12.0-16.0) g/dl Hct 39.0 30.3 L D (37.0-47.0) % Plt Count 225 173 (160-400) X10*3/uL BMP 04/30/22 05/01/22 20:20 04:42 Sodium 138 142 Potassium 3.2 L 2.5 L* D Chloride 97 107 Carbon Dioxide 25 24 BUN 3 L 2 L Creatinine 0.74 0.61 Calcium 8.4 6.6 L D Liver Function 04/30/22 Range/Units 20:20 Total Bilirubin 1.2 H (0.0-1.0) mg/dL Direct Bilirubin 0.5 (0.0-0.5) mg/dL AST 51 H (5-31) U/L ALT 19 (0-31) U/L Alkaline Phosphatase 153 H (39-117) U/L Albumin 3.9 (3.5-5.0) g/dL All other labs normal. Imaging Additional studies: Laboratory Results WBC 13.9 X10*3/uL (4.8-10.8) H 05/01/22 04:42 RBC 3.09 X10*6/uL (4.20-5.50) L D 05/01/22 04:42 Hgb 11.1 g/dl (12.0-16.0) L D 05/01/22 04:42 Hct 30.3 % (37.0-47.0) L D 05/01/22 04:42 MCV 98.1 fL (80.0-98.0) H 05/01/22 04:42 MCH 35.9 pg (27.0-33.0) H 05/01/22 04:42 MCHC 36.6 g/dl (31.0-35.0) H 05/01/22 04:42 RDW 12.2 % (11.0-16.0) 05/01/22 04:42 Plt Count 173 X10*3/uL (160-400) 05/01/22 04:42 MPV 9.7 fL (9.4-12.3) 05/01/22 04:42 Immature Gran % (Auto) 0.4 % (0.0-0.4) 05/01/22 04:42 Neut % (Auto) 76.5 % (45-73) H 05/01/22 04:42 Lymph % (Auto) 13.4 % (20-40) L 05/01/22 04:42 [place] % (Auto) 6.3 % (2-11) 05/01/22 04:42 Eos % (Auto) 3.2 % (0-4) 05/01/22 04:42 Baso % (Auto) 0.2 % (0-2) 05/01/22 04:42 Lymph # (Auto) 1.9 X10*3/uL (1.2-4.9) 05/01/22 04:42 [place] # (Auto) 0.9 X10*3/uL (0.1-1.2) 05/01/22 04:42 Eos # (Auto) 0.5 X10*3/uL (0.0-0.4) H 05/01/22 04:42 Baso # (Auto) 0.0 X10*3/uL (0.0-0.2) 05/01/22 04:42 Abs Immat Gran (auto) 0.06 X10*3/uL (0.00-0.03) H 05/01/22 04:42 Absolute Neuts (auto) 10.6 x10*3/uL (2.0-8.3) H 05/01/22 04:42 Absolute Nucleated RBC 0.000 X10*3/uL (0.0-0.012) 05/01/22 04:42 Nucleated RBC % (auto) 0.0 /100WBC (0.0-0.2) 05/01/22 04:42 Sodium 142 mmol/L (135-145) 05/01/22 04:42 Potassium 2.5 mmol/L (3.3-5.1) L* D 05/01/22 04:42 Chloride 107 mmol/L (96-108) 05/01/22 04:42 Carbon Dioxide 24 mmol/L (22-29) 05/01/22 04:42 Anion Gap 14 (12-20) 05/01/22 04:42 BUN 2 mg/dL (9-16) L 05/01/22 04:42 Creatinine 0.61 mg/dL (0.5-1.4) 05/01/22 04:42 Estim Creat Clear Calc 133.4 05/01/22 04:42 Estimated GFR > 60 05/01/22 04:42 Random Glucose 102 mg/dL (60-115) 05/01/22 04:42 Lactic Acid 1.4 mmol/L (0.5-2.0) 05/01/22 00:41 Calcium 6.6 mg/dL (8.4-10.2) L D 05/01/22 04:42 Total Bilirubin 1.2 mg/dL (0.0-1.0) H 04/30/22 20:20 Direct Bilirubin 0.5 mg/dL (0.0-0.5) 04/30/22 20:20 AST 51 U/L (5-31) H 04/30/22 20:20 ALT 19 U/L (0-31) 04/30/22 20:20 Alkaline Phosphatase 153 U/L (39-117) H 04/30/22 20:20 Troponin I High Sens 3.7 ng/L (<3.5-17.0) 04/30/22 20:20 Total Protein 7.0 g/dL (6.5-8.0) 04/30/22 20:20 Albumin 3.9 g/dL (3.5-5.0) 04/30/22 20:20 Lipase 1655 U/L (8-78) H 04/30/22 20:20 Beta HCG, Quant < 2 mIU/mL 04/30/22 20:20 COVID-19 ([facility]) Negative (Negative) 04/30/22 20:20 COVID-19 Clin Com See Note 04/30/22 20:20 Impressions Abdomen/Pelvis CT 04/30/22 23:40 IMPRESSION: 1. Peripancreatic edema and adjacent fluid. No drainable fluid collections are seen. Findings are consistent with acute pancreatitis. Probable pseudocyst in the pancreatic head. 2. Incidental note made of an enlarged fatty liver and resolution of previously seen bilateral nephrolithiasis Fleischner guidelines were followed. Assessment and Plan (1) Acute alcoholic pancreatitis: Status: Resolved She has epigastric pain, with elevated lipase and a CT scan showing peripancreatic edema consistent with acute pancreatitis. Likely etiology is alcohol intake. Her CAT scan does not reveal any gallstones. An ultrasound will be ordered to rule this out. It may be worthwhile to check her triglyceride levels as well. I agree with keeping her on bowel rest with NPO for now. She is being hydrated with IV fluids. Her LFTs and pre should be followed as well. She has some electrolyte imbalance likely due to poor oral intake. I will follow along while she is in the hospital. Procedures Date of Service Date of Service: 05/01/22
--- NOTE | 2022-05-01 16:33 | PM.EVENT ---
Event Note Date of Service: 05/02/22 Event Note: GI consult dictated Pancreatitis seems consistent with her history of alcohol use. US abdomen ordered to rule out gallstones.
[2022-05-01 19:51] VITALS: BP 132/97; PULSE 80; RESP 16; TEMP 37.2; O2SAT 97
[2022-05-01 23:40] VITALS: BP 132/90; PULSE 87; RESP 15; O2SAT 97
--- NOTE | 2022-05-02 02:38 | CONS_ITS ---
DATE OF SERVICE: 05/01/22 REFERRING PHYSICIAN: Jose Eduardo Blevins MD REASON FOR CONSULTATION: Pancreatitis in the setting of alcohol use. HISTORY OF PRESENT ILLNESS: The patient is a pleasant 36-year-old woman who is admitted to the hospital after presenting to the emergency room yesterday with complaints of abdominal pain. She reports the pain developed the day before admission in the epigastric area and became more generalized across the abdomen with some radiation to the back. There was some mild nausea associated with this and 1 episode of nonbloody vomiting. The pain continued and she presented to the emergency room where she was evaluated with laboratory studies showing an elevation of her white blood cell count at 18.1 with chemistries remarkable for a lipase of 1655, alkaline phosphatase and AST were slightly elevated. CT scanning was obtained, which was reviewed. This is consistent with acute pancreatitis. No gallstones were seen on the CT scan. She has never had an ultrasound. She was admitted to the hospital and has been treated with IV fluids, pain medications, and gut rest. She states she does drink alcohol, with about 2 beer drinks and sometimes 2-3 shots of liquor. She estimates this happens twice per week. Her last drink prior to presenting to the hospital was Saturday night. Imaging did show fatty liver. She has a history of substance abuse with opiates, which is in remission, on Suboxone for 6 years and denies other drug use. PAST MEDICAL HISTORY: 1. Hypertension. 2. Opiate dependence. CURRENT MEDICATIONS: Her current medication list is reviewed in the chart. ALLERGIES: THERE ARE NONE REPORTED. FAMILY HISTORY: Negative for pancreatitis. SOCIAL HISTORY: She denies other substance abuse. REVIEW OF SYSTEMS: SKIN: No pruritus. HEENT: Negative. CARDIOPULMONARY: No shortness of breath or chest pain. GASTROINTESTINAL: As above. GENITOURINARY: Negative. NEUROPSYCHIATRIC: Negative. PHYSICAL EXAMINATION: GENERAL: A pleasant female, lying in bed. VITAL SIGNS: Reviewed in electronic medical record and are stable. T-max was 99.1. SKIN: Anicteric. HEENT: No scleral icterus. NECK: Without lymphadenopathy or thyromegaly. LUNGS: Clear. HEART: Regular rate and rhythm. S1, S2. No murmur. ABDOMEN: Soft without focal masses or tenderness. Bowel sounds are present. She does have some epigastric tenderness to palpation. There is no guarding or rebound. EXTREMITIES: Without edema. DIAGNOSTIC STUDIES: Laboratory data and CT scanning are reviewed. IMPRESSION: Acute pancreatitis. This appears most consistent with acute pancreatitis on the basis of alcohol, although I would recommend obtaining an ultrasound to rule out gallbladder causes. She does not seem to have any other etiology for this at this time. I discussed with her the need to avoid alcohol due to the risk of recurrent pancreatitis. She appeared to understand this. I agree with treating her supportively as you are doing with IV fluids, pain medications, and gradually advancing her diet if she feels better. Thanks for asking me to see her. I will follow her in the hospital with you. MD TASHI Fleming/BILLY / [id number] MTDD
[2022-05-02 03:07] VITALS: BP 125/89; PULSE 78; RESP 18; TEMP 37.6; O2SAT 96
[2022-05-02] MEDS: 0.9 % Sodium Chloride 1,000 ML 100 ML IVCONT (06:41)
[2022-05-02 07:29] VITALS: BP 130/79; PULSE 70; RESP 18; TEMP 37.2; O2SAT 99
--- NOTE | 2022-05-02 08:22 | P.PNGS_ITS ---
Subjective Subjective Date of Service: 05/02/22 Interval history: Feels much better Pain has improved significantly No vomiting Physical Exam Vital Signs: Vital Signs: Last Vital Signs Temp 98.9 F 05/02/22 07:29 Pulse 70 05/02/22 07:29 Resp 18 05/02/22 07:29 BP 130/79 05/02/22 07:29 Pulse Ox 99 05/02/22 07:29 O2 Del Method 05/02/22 07:29 BMI result Body Mass Index 28.3 Const: General: comfortable and no acute distress Orientation/consciousness: patient oriented x3 Neck: Neck: Yes no lymphadenopathy Resp: Auscultation: clear to auscultation bilaterally Cardio: Rhythm: regular rhythm GI: Other: Mild tenderness on the epigastric area Palpation (GI): Soft to palpation, nontender and no guarding Neuro: General: patient oriented x3 Objective Data Active Medications Acetaminophen (Acetaminophen 325 Mg Tablet) 650 mg PO Q6H PRN PRN Reason: Pain, Mild (Pain Scale 1-3) Buprenorphine/Naloxone (Buprenorphine/Naloxone 8/2 Mg Film) 1 film SUBLINGUAL DAILY [facility] Last Admin: 05/01/22 08:38 Dose: 1 film Documented By: JIMI Enoxaparin Sodium (Enoxaparin Sodium 40 Mg/0.4 Ml Syringe) 40 mg SUBCUT Q24H [facility] Last Admin: 05/02/22 03:14 Dose: Not Given Documented By: STACY Non-Admin Reason: Patient Asleep Hydromorphone HCl (Hydromorphone Hcl 0.5 Mg/0.5 Ml Syringe) 0.5 mg IVPUSH Q4H PRN; Protocol PRN Reason: Pain, Severe (Pain Scale 7-10) Last Admin: 05/01/22 18:51 Dose: 0.5 mg Documented By: CONRAD Sodium Chloride (Ns) 1,000 mls @ 100 mls/hr IVCONT .Q10H [facility] Last Admin: 05/02/22 06:41 Dose: 100 mls/hr Documented By: STACY Lisinopril (Lisinopril 10 Mg Tablet) 10 mg PO DAILY [facility]; Protocol Last Admin: 05/01/22 08:30 Dose: 10 mg Documented By: JIMI Melatonin (Melatonin 3 Mg Tablet) 6 mg PO BEDTIME PRN PRN Reason: Insomnia Multivitamins/Vitamin C (Multivitamin Tablet) 1 tab PO DAILY [facility] Last Admin: 05/01/22 08:30 Dose: 1 tab Documented By: JIMI Senna (Sennosides 8.6 Mg Tablet) 17.2 mg PO BEDTIME PRN PRN Reason: Constipation Sodium Chloride (0.9 % Sodium Chloride Flush 3 Ml Syringe) 3 ml IVFLUSH QSHIFT [facility] Last Admin: 05/02/22 01:04 Dose: Not Given Documented By: STACY Non-Admin Reason: IV Running Labs CBC & Chem 7: 05/01/22 04:42 05/01/22 04:42 Labs: Laboratory Results WBC 13.9 X10*3/uL (4.8-10.8) H 05/01/22 04:42 RBC 3.09 X10*6/uL (4.20-5.50) L D 05/01/22 04:42 Hgb 11.1 g/dl (12.0-16.0) L D 05/01/22 04:42 Hct 30.3 % (37.0-47.0) L D 05/01/22 04:42 MCV 98.1 fL (80.0-98.0) H 05/01/22 04:42 MCH 35.9 pg (27.0-33.0) H 05/01/22 04:42 MCHC 36.6 g/dl (31.0-35.0) H 05/01/22 04:42 RDW 12.2 % (11.0-16.0) 05/01/22 04:42 Plt Count 173 X10*3/uL (160-400) 05/01/22 04:42 MPV 9.7 fL (9.4-12.3) 05/01/22 04:42 Immature Gran % (Auto) 0.4 % (0.0-0.4) 05/01/22 04:42 Neut % (Auto) 76.5 % (45-73) H 05/01/22 04:42 Lymph % (Auto) 13.4 % (20-40) L 05/01/22 04:42 [place] % (Auto) 6.3 % (2-11) 05/01/22 04:42 Eos % (Auto) 3.2 % (0-4) 05/01/22 04:42 Baso % (Auto) 0.2 % (0-2) 05/01/22 04:42 Lymph # (Auto) 1.9 X10*3/uL (1.2-4.9) 05/01/22 04:42 [place] # (Auto) 0.9 X10*3/uL (0.1-1.2) 05/01/22 04:42 Eos # (Auto) 0.5 X10*3/uL (0.0-0.4) H 05/01/22 04:42 Baso # (Auto) 0.0 X10*3/uL (0.0-0.2) 05/01/22 04:42 Abs Immat Gran (auto) 0.06 X10*3/uL (0.00-0.03) H 05/01/22 04:42 Absolute Neuts (auto) 10.6 x10*3/uL (2.0-8.3) H 05/01/22 04:42 Absolute Nucleated RBC 0.000 X10*3/uL (0.0-0.012) 05/01/22 04:42 Nucleated RBC % (auto) 0.0 /100WBC (0.0-0.2) 05/01/22 04:42 Sodium 142 mmol/L (135-145) 05/01/22 04:42 Potassium 2.5 mmol/L (3.3-5.1) L* D 05/01/22 04:42 Chloride 107 mmol/L (96-108) 05/01/22 04:42 Carbon Dioxide 24 mmol/L (22-29) 05/01/22 04:42 Anion Gap 14 (12-20) 05/01/22 04:42 BUN 2 mg/dL (9-16) L 05/01/22 04:42 Creatinine 0.61 mg/dL (0.5-1.4) 05/01/22 04:42 Estim Creat Clear Calc 133.4 05/01/22 04:42 Estimated GFR > 60 05/01/22 04:42 Random Glucose 102 mg/dL (60-115) 05/01/22 04:42 Lactic Acid 1.4 mmol/L (0.5-2.0) 05/01/22 00:41 Calcium 6.6 mg/dL (8.4-10.2) L D 05/01/22 04:42 Total Bilirubin 1.2 mg/dL (0.0-1.0) H 04/30/22 20:20 Direct Bilirubin 0.5 mg/dL (0.0-0.5) 04/30/22 20:20 AST 51 U/L (5-31) H 04/30/22 20:20 ALT 19 U/L (0-31) 04/30/22 20:20 Alkaline Phosphatase 153 U/L (39-117) H 04/30/22 20:20 Troponin I High Sens 3.7 ng/L (<3.5-17.0) 04/30/22 20:20 Total Protein 7.0 g/dL (6.5-8.0) 04/30/22 20:20 Albumin 3.9 g/dL (3.5-5.0) 04/30/22 20:20 Lipase 1655 U/L (8-78) H 04/30/22 20:20 Beta HCG, Quant < 2 mIU/mL 04/30/22 20:20 COVID-19 (STEPHENIE) Negative (Negative) 04/30/22 20:20 COVID-19 Clin Com See Note 04/30/22 20:20 Impressions Abdomen/Pelvis CT 04/30/22 23:40 IMPRESSION: 1. Peripancreatic edema and adjacent fluid. No drainable fluid collections are seen. Findings are consistent with acute pancreatitis. Probable pseudocyst in the pancreatic head. 2. Incidental note made of an enlarged fatty liver and resolution of previously seen bilateral nephrolithiasis Fleischner guidelines were followed. Abdomen Ultrasound 05/01/22 18:55 IMPRESSION: 1. Adenomyomatosis of the gallbladder fundus. 2. Enlargement of the pancreatic head consistent with pancreatitis. 3. Hepatic steatosis. Microbiology Microbiology Results: Microbiology 05/01/22 00:41 Blood Culture - Preliminary Blood - Venous No growth after 24 hours. 05/01/22 00:41 Blood Culture - Preliminary Blood - Venous No growth after 24 hours. Procedures Date of Service Date of Service: 05/02/22 Progress Note: A&P Assessment and plan (1) Acute alcoholic pancreatitis: Status: Acute Assessment and Plan: Symptoms much improved Ultrasound does not show gallstones Replace potassium Abdominal exam is benign Continue current care Okay to start with clear liquids and advance as tolerated Time Spent With Patient Time: Total time spent is greater than 50% in coordination of care (as documented) at patient's floor/unit and/or counseling patient: Quality Stroke Does the patient have a stroke diagnosis?: No VTE Prior VTE?: No VTE Risk Level:: Medical - moderate - high VTE Device Contraindication: Treatment Not Indicated VTE Drug Contraindication: N/A - Med Ordered
[2022-05-02] MEDS: lisinopriL 10 MG TABLET PO (08:33)
[2022-05-02] MEDS: Buprenorphine/Naloxone 8/2 mg FILM 1 FILM SUBLINGUAL (08:33)
[2022-05-02] MEDS: Multivitamin TABLET 1 TAB PO (08:33)
[2022-05-02 11:32] VITALS: BP 135/75; PULSE 75; RESP 18; TEMP 37.2; O2SAT 99
[2022-05-02 12:16] LABS: Blood Urea Nitrogen 4 mg/dL (9-16); Estimated Glomerular Filt Rate > 60; Glucose Random 67 mg/dL (60-115); Lipase 96 U/L (8-78)
[2022-05-02 12:27] LABS: Anion Gap 15 (12-20); Calcium 6.6 mg/dL (8.4-10.2); Carbon Dioxide 22 mmol/L (22-29); Chloride 105 mmol/L (96-108); Potassium 2.7 mmol/L (3.3-5.1); Sodium 139 mmol/L (135-145)
[2022-05-02] MEDS: Potassium Chloride Packet 20 MEQ PACKET 40 MEQ PO (13:19)
[2022-05-02] MEDS: Potassium Chloride/H20 10 MEQ/100 ML PIGGYBACK 100 MEQ IV (14:05)
[2022-05-02 16:00] VITALS: BP 125/85; PULSE 85; RESP 17; TEMP 37.2; O2SAT 98
[2022-05-02 17:08] LABS: Anion Gap 12 (12-20); Carbon Dioxide 25 mmol/L (22-29); Chloride 105 mmol/L (96-108); Potassium 3.4 mmol/L (3.3-5.1); Sodium 139 mmol/L (135-145)
--- NOTE | 2022-05-02 18:11 | PM.DS ---
DS: Providers Provider Date of Service: 05/02/22 Date of admission: 05/01/22 00:37 Primary care physician: Unknown Physician Consults: 05/01/22 00:37 Consult to Gastroenterology Routine Consulting Provider: Cheikh Morrow Reason for consultation: pancreatitis/pseudocyst Consult to General Surgery Routine Consulting Provider: Paulino Martin Reason for consultation: pancreatitis/pseudocyst 05/01/22 00:40 Addiction Medicine Routine Consulting Provider: Carol Ann Hemphill Reason for consultation: pt on suboxine DS: Diagnosis Discharge Diagnosis (1) Acute alcoholic pancreatitis: Status: Acute DS: Summary Hospital Course Hospital Course: Patient was admitted for acute alcoholic pancreatitis with initial lipase of 1655. Her management consisted of IV fluid, Pain medication and correction of electrolytes, including Hypokalemia. Her pain improved by second day of hospitalization and her diet was advanced and tolerating. Lipase has come jenifer to 96. She is instructed to avoid alcohol at all cause and dangers outlined to her. Final diagnosis: alcute alcoholic pancreatitis HypOkalemia alcohol use desorder Time Spent with Patient Time attestation: Total time spent providing and/or coordinating discharge services: Discharge coordination time: Greater than 30 minutes Quality: Safe Use of Opioids Does Pt have an Active Cancer Diagnosis on the Problem List?: No Quality: Stroke Does the patient have a stroke diagnosis?: No Physical Exam Vital Signs: Vital Signs: Last Vital Signs Temp 98.9 F 05/02/22 16:00 Pulse 85 05/02/22 16:00 Resp 17 05/02/22 16:00 BP 125/85 05/02/22 16:00 Pulse Ox 98 05/02/22 16:00 O2 Del Method 05/02/22 16:00 BMI result Body Mass Index 28.3 DS: Data Data Completed and Pending Labs on day of discharge: Laboratory Results - last 24 hr 05/02/22 05/02/22 11:22 16:39 Sodium 139 139 Potassium 2.7 L 3.4 D Chloride 105 105 Carbon Dioxide 22 25 Anion Gap 15 12 BUN 4 L D Creatinine 0.55 Estim Creat Clear Calc 148.0 Estimated GFR > 60 Random Glucose 67 Calcium 6.6 L Lipase 96 H Preliminary micro results at discharge 05/01/22 00:41 Blood Culture - Preliminary Blood - Venous No growth after 24 hours. 05/01/22 00:41 Blood Culture - Preliminary Blood - Venous No growth after 24 hours. Discharge Plan Discharge Anticipated Discharge Date/Time: 05/02/22 18:07 Patient Disposition: Home, Self-Care Discharge Diagnosis: Alcoholic pancreatitis Referrals: Physician,Unknown J [Primary Care Provider] - 1 Week Discharge Medications: Continued multivitamin Tablet 1 tab PO DAILY lisinopril 10 mg tablet 1 tab PO DAILY buprenorphine-naloxone [Suboxone] 8-2 mg film 1 strip sublingual DAILY Discharge Orders: Discharge Order (Routine); Ordered 05/02/22 Ordered By: Reese Parrish Diet: Advance to usual diet Activity on Discharge: As tolerated Stand Alone Forms: Patient Portal Discharge page Care Plan Goals: Full recovery from pancreatitis Health Concerns: acute alcoholic pancreatitis Plan of Treatment: avoid alcohol, follow up with your doctor in a week Assessment: as above
== END 2022-05-02 18:39 | disposition home or self-care (01) | DRG 282 ==
LOC: HO.ED 23:30 → HO.EDOVER 05-01 00:50 → HO.IMC 05-01 07:29
PROVIDERS: Admitting Provider Hospitalist; Emergency Provider Internal Medicine; PCP Nurse Practitioner Family; Visit Provider Internal Medicine
DX: K85.20 Alcohol induced acute pancreatitis without necrosis or infection (principal); E87.6 Hypokalemia; F17.210 Nicotine dependence, cigarettes, uncomplicated; Z71.6 Tobacco abuse counseling; F11.20 Opioid dependence, uncomplicated; Z20.822 Contact with and (suspected) exposure to COVID-19; Z79.899 Other long term (current) drug therapy
CPT/HCPCS: 36415; 74177; 76700; 80048; 80051; 80053; 82248; 83605; 83690; 84484; 84702; 85025; 87040; 87635; 93005; 99219; 99285; J1170; J1650; J2270; J2405; J2543; J3475; Q9967

== ENCOUNTER 2023-02-04 16:55 | Inpatient (IN) | payer MEDICAID, SELFPAY ==
--- NOTE | ~2023-02-04 | FL_ITS ---
EXAMINATION: FL GI SERIES CLINICAL INFORMATION: Dysphagia. COMPARISON: None available. TECHNIQUE: Air-contrast upper GI examination and esophagram. FINDINGS: There is normal apposition of the vocal cords while saying E . There is normal elevation of the soft palate while saying candy . The patient swallowed thin and thick barium and a one-half inch diameter barium tablet without difficulty. No nasopharyngeal reflux or tracheal aspiration was seen. No significant cricopharyngeal hypertrophy identified. No evidence of a Zenker's diverticulum. The stomach demonstrated normal distensibility without persistent stricture or mucosal abnormality. No hiatal hernia was seen. There is mild spontaneous gastroesophageal reflux within the distal third of the esophagus which cleared rapidly. The study demonstrates normal distensibility. No abnormal mass or ulceration is appreciated. There was no delay in gastric emptying. The duodenal bulb and sweep appeared unremarkable. FLUOROSCOPY TIME: 2.1 minutes DOSE AREA PRODUCT: 17.324 Gy-cm2 (werner-centimeter squared) FL/FL upper GI series IMPRESSION: Mild transient gastroesophageal reflux within the distal third of the esophagus. Otherwise unremarkable esophagram and upper GI examination.
[2023-02-04 18:23] VITALS: BP 124/78; PULSE 81; RESP 14; TEMP 36.1; O2SAT 100; BMI 22.0
--- NOTE | 2023-02-04 18:29 | ECG_ITS ---
Test Reason : ABN LABS Blood Pressure : / mmHG Vent. Rate : 087 BPM Atrial Rate : 087 BPM P-R Int : 144 ms QRS Dur : 088 ms QT Int : 436 ms P-R-T Axes : 023 010 008 degrees QTc Int : 524 ms Normal sinus rhythm Cannot rule out Inferior infarct , age undetermined Prolonged QT Abnormal ECG When compared with ECG of 01-MAY-2022 10:09, T wave inversion now evident in Anterior leads QT has lengthened Referred By: Generic ED Physician Electronically Signed By:Zaid Rock
[2023-02-04 19:44] LABS: MANUAL DIFF FLAG NO
[2023-02-04 19:45] LABS: Basophils Percent Auto 0.2 % (0-2); Eosinophils Absolute Auto 0.1 X10*3/uL (0.0-0.4); Eosinophils Percent Auto 0.3 % (0-4); Hemoglobin 12.3 g/dl (12.0-16.0); Imm Gran Abs Auto 0.07 X10*3/uL (0.00-0.03); Imm Gran Pct Auto 0.5 % (0.0-0.4); Lymphocytes Absolute Auto 2.1 X10*3/uL (1.2-4.9); Lymphocytes Percent Auto 13.8 % (20-40); Mean Corpuscular HGB Conc 37.3 g/dl (31.0-35.0); Mean Corpuscular Hemoglobin 36.1 pg (27.0-33.0); Mean Corpuscular Volume 96.8 fL (80.0-98.0); Mean Platelet Volume 9.5 fL (9.4-12.3); Monocytes Absolute Auto 1.1 X10*3/uL (0.1-1.2); Monocytes Percent Auto 7.2 % (2-11); Neutrophils Absolute Auto 11.7 x10*3/uL (2.0-8.3); Platelet Count 233 X10*3/uL (160-400); Red Blood Count 3.41 X10*6/uL (4.20-5.50); Red Cell Distribution Width 12.6 % (11.0-16.0); White Blood Count 14.9 X10*3/uL (4.8-10.8)
[2023-02-04 20:19] VITALS: BP 108/72; PULSE 79; RESP 16; TEMP 37.1; O2SAT 96
--- NOTE | 2023-02-04 21:06 | ED_ITS ---
[facility] - General Adult General Chief complaint: Recheck/Abnormal Lab/Rx Stated complaint: abnormal labs sent from dr Time Seen by Provider: 02/04/23 19:49 Source: patient Mode of arrival: ambulatory History of Present Illness HPI narrative: 37-year-old female with alcohol use disorder, on Suboxone program, states that she drinks alcohol every day but has had multiple episodes of nausea and vomiting for the past few days and has had significant weight loss and is not currently on any treatment for her psoriasis. Related Data Home Medications Medication Instructions Recorded Confirmed buprenorphine 8 mg-naloxone 2 mg 1 strip sublingual DAILY 05/01/22 05/01/22 sublingual film (Suboxone) lisinopril 10 mg tablet 1 tab PO DAILY 05/01/22 05/01/22 multivitamin 1 tab PO DAILY 05/01/22 05/01/22 Allergies Allergy/AdvReac Type Severity Reaction Status Date / Time No Known Allergies Allergy Unverified 05/19/20 18:33 Review of Systems Review of Systems: Pertinent positives and negatives as stated in HPI [facility] Past Medical History Source: nursing notes reviewed Social History Social History Household Members: Family Housing: House Do you presently have visiting nurse or other home services: No Alcohol intake: current Alcohol intake frequency: 3 or more drinks per day Patient Tobacco Use Status: Current everyday Tobacco user Tobacco use type: Cigarette Smoked in Last 30 Days: Yes e-Cigarette/Vaping Use: Never Used Second Hand Smoke Exposure: No Use of substances other than those prescribed or required for medical reasons: No Advance Directives: No Advance Directives Information Provided: No Patient : No service: No Current occupational status: employed Physical Exam ED Vital Signs: Vital Signs - 24 hr 02/04/23 18:23 02/04/23 20:19 Temperature 97.0 F 98.7 F Pulse Rate 81 79 Respiratory Rate 14 16 Blood Pressure 124/78 108/72 Pulse Oximetry 100 96 Oxygen Delivery Method Room Air Room Air BMI result Body Mass Index 22.0 VITAL SIGNS: Reviewed. GENERAL: Well developed, well nourished, in no acute distress. HEAD: Normocephalic/atraumatic EYES: PERRLA, EOMI EARS: Ext canals without abnormality NOSE: Nares patent bilateral OROPHARYNX: no oral lesions noted, posterior pharynx clear NECK: Supple, no adenopathy LUNGS: Normal breath sounds. No adventitious sounds or accessory muscle use. SpO2<96> CARDIOVASCULAR: Regular rate and rhythm without noted murmurs ABDOMEN: Soft, non-tender, non-distended with bowel sounds. MUSCULOSKELETAL: No tenderness, deformities, or effusions noted on gross in spection. EXTREMITIES: No cyanosis, clubbing or edema. SKIN: Inspection of the skin reveals psoriasis + NEUROLOGIC: Alert and oriented x 3. Strength and sensation to light touch were grossly intact x 4. Medications Administered Generic Name Dose Route Start Last Admin Trade Name Freq PRN Reason Stop Dose Admin Sodium Chloride 1,000 mls @ 999 mls/hr 02/04/23 21:00 02/04/23 21:47 Ns IV 02/04/23 22:00 999 mls/hr .Q1H1M [facility] Administration Discontinued Medications Generic Name Dose Route Start Last Admin Trade Name Freq PRN Reason Stop Dose Admin Magnesium Sulfate/Dextrose 1 gm in 100 mls @ 300 mls/hr 02/04/23 21:12 02/04/23 21:51 Magnesium Sulfate/D5w IV 02/04/23 21:31 300 mls/hr ONCE ONE Administration Medical Decision Making Medical Decision Making MDM Narrative: 37-year-old female with several days of nausea vomiting, poor oral intake denies any other drug use but states she is an alcohol drinker and is not currently under any treatment for her psoriasis. She states that she had lab work by Dr. Jade and was told to come into the emergency room. On review of investigations patient has critical electrolyte abnormalities that involved both potassium and magnesium with significant EKG changes reflective of these abnormalities. 2205: I discussed case with inpatient hospitalist who states that this can be repleted with IV and oral replacement and discharged. Signed out to Dr Rosa. Differential Diagnosis Please see the discussion above Consult Healthcare Provider Management of the patient was discussed with: Hospitalist Recommends discharge and oral medications Lab Data See the discussion above 02/04/23 19:37 02/04/23 19:37 Labs: Lab Results 02/04/23 02/04/23 02/04/23 Range/Units 19:37 19:37 19:37 WBC 14.9 H (4.8-10.8) X10*3/uL RBC 3.41 L (4.20-5.50) X10*6/uL Hgb 12.3 (12.0-16.0) g/dl Hct 33.0 L (37.0-47.0) % MCV 96.8 (80.0-98.0) fL MCH 36.1 H (27.0-33.0) pg MCHC 37.3 H (31.0-35.0) g/dl RDW 12.6 (11.0-16.0) % Plt Count 233 D (160-400) X10*3/uL MPV 9.5 (9.4-12.3) fL Immature Gran % (Auto) 0.5 H (0.0-0.4) % Neut % (Auto) 78.0 H (45-73) % Lymph % (Auto) 13.8 L (20-40) % [place] % (Auto) 7.2 (2-11) % Eos % (Auto) 0.3 (0-4) % Baso % (Auto) 0.2 (0-2) % Lymph # (Auto) 2.1 (1.2-4.9) X10*3/uL [place] # (Auto) 1.1 (0.1-1.2) X10*3/uL Eos # (Auto) 0.1 (0.0-0.4) X10*3/uL Baso # (Auto) 0.0 (0.0-0.2) X10*3/uL Abs Immat Gran (auto) 0.07 H (0.00-0.03) X10*3/uL Absolute Neuts (auto) 11.7 H (2.0-8.3) x10*3/uL Absolute Nucleated RBC 0.000 (0.0-0.012) X10*3/uL Nucleated RBC % (auto) 0.0 (0.0-0.2) /100WBC Sodium 138 (135-145) mmol/L Potassium 1.8 L* D (3.3-5.1) mmol/L Chloride 83 L D (96-108) mmol/L Carbon Dioxide 39 H (22-29) mmol/L Anion Gap 18 (12-20) BUN < 3 L (9-16) mg/dL Creatinine 0.59 (0.5-1.4) mg/dL Estim Creat Clear Calc 124.5 Estimated GFR > 60 Random Glucose 102 (60-115) mg/dL Calcium 6.6 L (8.4-10.2) mg/dL Magnesium 1.2 L* (1.6-2.6) mg/dL Troponin I High Sens 12.0 (<3.5-17.0) ng/L Lipase 80 H (8-78) U/L Independent Interpretation I performed an independent interpretation of an: EKG Interpretation: Normal sinus rhythm, HR-87, no STEMI, KS/QRS are within normal limits, QTC is 52 4 External Record Review External record reviewed: Prior outpatient labs Discharge Plan Discharge Clinical Impression: Alcohol use disorder, Hypokalemia, Hypomagnesemia, Acute electrocardiography changes Patient Disposition: Still a Patient Prescriptions: No Action multivitamin Tablet 1 tab PO DAILY lisinopril 10 mg tablet 1 tab PO DAILY buprenorphine-naloxone [Suboxone] 8-2 mg film 1 strip sublingual DAILY
[2023-02-04 21:14] LABS: Anion Gap 18 (12-20); Blood Urea Nitrogen < 3 mg/dL (9-16); Calcium 6.6 mg/dL (8.4-10.2); Carbon Dioxide 39 mmol/L (22-29); Chloride 83 mmol/L (96-108); Creatinine Clr Calc Pharmacy 124.5; Estimated Glomerular Filt Rate > 60; Glucose Random 102 mg/dL (60-115); Potassium 1.8 mmol/L (3.3-5.1); Sodium 138 mmol/L (135-145)
[2023-02-04 21:20] LABS: Lipase 80 U/L (8-78); Magnesium 1.2 mg/dL (1.6-2.6)
[2023-02-04] MEDS: 0.9 % Sodium Chloride 1,000 ML 999 ML IV ×2 (21:47→23:10)
[2023-02-04] MEDS: Magnesium Sulfate/D5W 1 GM/100 ML PIGGYBACK IV ×2 (21:51→23:10)
[2023-02-04] MEDS: Potassium Chloride/H20 10 MEQ/100 ML PIGGYBACK 100 MEQ IV ×2 (22:13→23:34)
[2023-02-04 22:29] VITALS: BP 101/64; PULSE 80; RESP 10; TEMP 36.6; O2SAT 99
--- NOTE | 2023-02-04 22:43 | P.HPHOSP_ITS ---
History of Present Illness Date of Service: 02/04/23 Chief Complaint: Abnormal electrolytes This is a 37-year-old female with pertinent history of alcohol use disorder , opioid use disorder on suboxone who was sent to the emergency department for evaluation of abnormal labs. Patient states she has been having nonbloody episodes of nausea and vomiting that started 2-3 days prior to presentation. She also has been having difficulty with swallowing food and maintaining p.o. intake. Does drink alcohol every day. unclear history of alcohol withdrawal. Patient states that she had an appointment with PCP and got blood work done. Electrolyte abnormalities were noted and she was sent to the ER. Patient denies fever, chills, chest discomfort, palpitations, shortness of breath, changes in urinary or bowel habits. She states that she is compliant with lisinopril and Suboxone In the emergency department, patient's potassium found to be 1.8 and magnesium was found to be low. Review of Systems Constitutional: Constitutional: Reports fatigue, Reports lethargy and Reports malaise ENT: Reports dysphagia Cardiovascular: Cardiovascular: Reports no additional cardiovascular complaints Respiratory: Respiratory: Reports no additional respiratory complaints Gastrointestinal: Gastrointestinal: Reports dysphagia Genitourinary: Genitourinary: Reports no additional female genitourinary complaints Endocrine: Endocrine: Reports fatigue [facility] Medical History Alcohol use disorder Essential hypertension Opioid use disorder Pertinent family history: no family history of early CAD Social History Household Members: Family Housing: House Do you presently have visiting nurse or other home services: No Alcohol intake: current Alcohol intake frequency: 3 or more drinks per day Patient Tobacco Use Status: Current everyday Tobacco user Tobacco use type: Cigarette Smoked in Last 30 Days: Yes e-Cigarette/Vaping Use: Never Used Second Hand Smoke Exposure: No Use of substances other than those prescribed or required for medical reasons: No Advance Directives: No Advance Directives Information Provided: No Patient : No service: No Current occupational status: employed Meds Allergies Allergy/AdvReac Type Severity Reaction Status Date / Time No Known Allergies Allergy Unverified 05/19/20 18:33 Active Medications: Current Medications Potassium Chloride (Potassium Chloride/H20) 10 meq in 100 mls @ 100 mls/hr IV Q1H [facility] Stop: 02/05/23 01:14 Last Admin: 02/04/23 22:13 Dose: 100 mls/hr Sodium Chloride (Ns) 1,000 mls @ 999 mls/hr IV .Q1H1M [facility] Stop: 02/04/23 23:15 Potassium Chloride (Potassium Chloride/H20) 10 meq in 100 mls @ 100 mls/hr IV Q1H [facility] Stop: 02/05/23 02:59 Thiamine HCl 100 mg/ Sodium (Chloride) 101 mls @ 202 mls/hr IV DAILY [facility] Home Medications Medication Instructions Recorded Confirmed Last Taken Type buprenorphine 8 mg-naloxone 2 mg 1 strip sublingual DAILY 05/01/22 05/01/22 04/30/22 History sublingual film (Suboxone) lisinopril 10 mg tablet 1 tab PO DAILY 05/01/22 05/01/22 04/30/22 History multivitamin 1 tab PO DAILY 05/01/22 05/01/22 04/30/22 History Physical Exam Vital Signs and Narrative: Vital Signs: Last Vital Signs Temp 97.9 F 02/04/23 22:29 Pulse 80 02/04/23 22:29 Resp 10 L 02/04/23 22:29 BP 101/64 02/04/23 22:29 Pulse Ox 99 02/04/23 22:29 O2 Del Method Room Air 02/04/23 22:29 BMI result Body Mass Index 22.0 Young female lying in bed in no distress Neck supple, no JVD Regular rate and rhythm, S1-S2 heard Regular breath sounds bilaterally, no wheezing or crackles appreciated Abdomen soft nontender, no guarding, no rigidity Patient is awake, alert and oriented to self, place, time and person ; no focal motor deficit Psych: Normal mood No pedal edema Results Labs 02/04/23 19:37 02/04/23 19:37 Labs: Laboratory Results - last 24 hr 02/04/23 02/04/23 02/04/23 19:37 19:37 19:37 MCV 96.8 MCH 36.1 H MCHC 37.3 H RDW 12.6 Plt Count 233 D MPV 9.5 Immature Gran % (Auto) 0.5 H Neut % (Auto) 78.0 H Lymph % (Auto) 13.8 L [place] % (Auto) 7.2 Eos % (Auto) 0.3 Baso % (Auto) 0.2 Lymph # (Auto) 2.1 [place] # (Auto) 1.1 Eos # (Auto) 0.1 Baso # (Auto) 0.0 Abs Immat Gran (auto) 0.07 H Absolute Neuts (auto) 11.7 H Absolute Nucleated RBC 0.000 Nucleated RBC % (auto) 0.0 Anion Gap 18 Estim Creat Clear Calc 124.5 Estimated GFR > 60 Random Glucose 102 Calcium 6.6 L Magnesium 1.2 L* Troponin I High Sens 12.0 Lipase 80 H Assessment and Plan (1) Hypomagnesemia: Status: Acute (2) Hypokalemia: Status: Acute (3) Alcohol use disorder: Status: Acute (4) Opioid use disorder: Status: Acute Plan This is a 37-year-old female with pertinent history of alcohol use disorder , opioid use disorder on suboxone who was sent to the emergency department for evaluation of abnormal labs. #. alcohol use disorder. Monitor CIWA. Initiating thiamine and folic acid. Consulting Addiction Team . folate pending #. hypokalemia due to GI losses. Repeating. Monitor #. ?dysphagia. Consulting speech for diet recommendations. May need GI consult. #. opioid use disorder on Suboxone #. hypomagnesemia due to alcohol use disorder. Repeated #. reactive leukocytosis med rec pending DVT prophylaxis: Lovenox Full code Low-salt diet Time Spent With Patient Time: Total time managing care of this patient today ____ minutes. Quality Stroke Does the patient have a stroke diagnosis?: No VTE Prior VTE?: No VTE Risk Level:: Medical - moderate - high VTE Device Contraindication: Treatment Not Indicated VTE Drug Contraindication: N/A - Med Ordered
[2023-02-04] MEDS: 0.9 % Sodium Chloride Flush 3 ML SYRINGE IVFLUSH (23:34)
[2023-02-04 23:38] LABS: Folate 8.8 ng/mL (> or = 4.0); Vitamin B12 1055 pg/mL (200-900)
[2023-02-04] MEDS: Potassium Chloride ER 20 MEQ TAB.ER.PRT 40 MEQ PO (23:46)
[2023-02-04] MEDS: Potassium Chloride Packet 20 MEQ PACKET 40 MEQ PO (23:47)
[2023-02-04] MEDS: Thiamine HCL 100 MG in 0.9 % Sodium Chloride 100 ML 202 MG IV (23:47)
[2023-02-04] MEDS: Enoxaparin Sodium 40 MG/0.4 ML SYRINGE SUBCUT (23:47)
--- NOTE | 2023-02-04 23:59 | PC.NURSE ---
Dr Kate confirmed, he wants 8 bags of potassium. MD aware that administration will take 8 hours. Medication administration may be late due to this.
[2023-02-05] VITALS (8 sets, daily range): BP systolic 85–140; BP diastolic 58–97; PULSE 67–79; RESP 14–21; TEMP 36.1–37; O2SAT 90–97; BMI 23.1
[2023-02-05] MEDS: Potassium Chloride/H20 10 MEQ/100 ML PIGGYBACK 100 MEQ IV ×12 (00:40→15:26)
[2023-02-05] MEDS: Albumin Human 25 % 100 ML IV ×2 (02:31→03:42)
--- NOTE | 2023-02-05 04:04 | PC.NURSE ---
Duplicate orders were put in for potassium. Dr Kate cancelled the order beginning at 2300. Documented as physician held. Humble bueno.
[2023-02-05 06:05] LABS: MANUAL DIFF FLAG NO
[2023-02-05 06:08] LABS: Basophils Percent Auto 0.3 % (0-2); Eosinophils Absolute Auto 0.1 X10*3/uL (0.0-0.4); Eosinophils Percent Auto 0.7 % (0-4); Hematocrit 23.6 % (37.0-47.0); Hemoglobin 8.7 g/dl (12.0-16.0); Imm Gran Abs Auto 0.04 X10*3/uL (0.00-0.03); Imm Gran Pct Auto 0.5 % (0.0-0.4); Lymphocytes Absolute Auto 1.7 X10*3/uL (1.2-4.9); Lymphocytes Percent Auto 19.1 % (20-40); Mean Corpuscular HGB Conc 36.9 g/dl (31.0-35.0); Mean Corpuscular Volume 100.4 fL (80.0-98.0); Mean Platelet Volume 9.8 fL (9.4-12.3); Monocytes Absolute Auto 0.6 X10*3/uL (0.1-1.2); Monocytes Percent Auto 6.4 % (2-11); Neutrophils Absolute Auto 6.4 x10*3/uL (2.0-8.3); Platelet Count 174 X10*3/uL (160-400); Red Blood Count 2.35 X10*6/uL (4.20-5.50); Red Cell Distribution Width 12.6 % (11.0-16.0); White Blood Count 8.7 X10*3/uL (4.8-10.8)
[2023-02-05 06:25] LABS: Magnesium 1.9 mg/dL (1.6-2.6)
[2023-02-05 06:34] LABS: Anion Gap 11 (12-20); Blood Urea Nitrogen < 3 mg/dL (9-16); Calcium 6.1 mg/dL (8.4-10.2); Carbon Dioxide 36 mmol/L (22-29); Chloride 99 mmol/L (96-108); Creatinine Clr Calc Pharmacy 138.6; Estimated Glomerular Filt Rate > 60; Glucose Random 85 mg/dL (60-115); Potassium 2.2 mmol/L (3.3-5.1); Sodium 144 mmol/L (135-145)
[2023-02-05] MEDS: Potassium Chloride Packet 20 MEQ PACKET 40 MEQ PO (07:39)
[2023-02-05] MEDS: Potassium Chloride ER 20 MEQ TAB.ER.PRT 40 MEQ PO (07:43)
--- NOTE | 2023-02-05 08:17 | PHA.MEDREC ---
Pharmacy Consult ? Medication Reconciliation Pharmacy has completed the medication reconciliation. Spoke to patient at bedside, able to name medications by herself
[2023-02-05] MEDS: 0.9 % Sodium Chloride Flush 3 ML SYRINGE IVFLUSH ×2 (08:32→15:27)
[2023-02-05] MEDS: Thiamine HCL 100 MG in 0.9 % Sodium Chloride 100 ML 202 MG IV (08:40)
[2023-02-05 08:56] LABS: Iron 33 mcg/dL (30-160); Percent Iron Saturation 33 % (15-50); Total Iron Binding Capacity 101 mcg/dL (228-428); Unsaturated Iron Binding 68 ug/dL
--- NOTE | 2023-02-05 11:32 | PC.NURSE ---
No labs orders to re-check Potassium level s/p repleation. Kaylan Parrish MD notified. Electrolyte lab ordered.
[2023-02-05] MEDS: Buprenorphine/Naloxone 8/2 mg FILM 1 FILM SUBLINGUAL (12:21)
--- NOTE | 2023-02-05 12:48 | MHC.CM.ED ---
Attempted to meet with patient in regards to discharge planning. Patient is currently sleeping. No family present. Will attempt to meet again. Continue to monitor for d/c needs.
[2023-02-05 12:56] LABS: Anion Gap 11 (12-20); Carbon Dioxide 34 mmol/L (22-29); Chloride 100 mmol/L (96-108); Potassium 2.7 mmol/L (3.3-5.1); Sodium 142 mmol/L (135-145)
--- NOTE | 2023-02-05 13:36 | MHC.RECOVRN ---
Met with pt in ED16 after consult placed to Addiction Medicine for alcohol use disorder. Pt had presented to [facility] for abnormal labs and has subsequently been admitted. Pt sitting in bed, eyes closed, wakes to voice, difficult to engage in conversation. Pt appears uncomfortable due to grimacing and guarded body language. Pt currently reports alcohol use, 5 nips daily x 1.5 months, last drink approx 4 days ago. Pt denies hx alcohol withdrawal. Denies current withdrawal symptoms, does not appear to be experiencing withdrawal. Pt is currently on 8 mg Suboxone daily through [facility] in [place]. Per [facility], last prescription 01/23 for a 14 day supply. Pt reports last dose was yesterday. Pt denies opioid use. Declines engaging in further conversation regarding recovery/substance use at this time. Pt provided with recovery resources to look over, denies questions or concerns for t/w. Will follow up tomorrow. Discussed with Carol Ann Hemphill APRN.
--- NOTE | 2023-02-05 17:29 | MHC.SL.SWA ---
Speech Pathologist Impression: Risk of Aspiration Due to: None Dysphasia Diet Status: Liquid Consistency and Strategies for Safe Swallow: Liquid Intake Recommendation: Thin Liquid Intake Strategies: Unrestricted Solid Food Consistency: Dietary Recommendations: Regular Additional Modifications to Solid Foods: Oral Medication Intake: Whole with Liquid Please contact the pharmacy regarding appropriate crushable or liquid drug formulations that are available whenever modified delivery is recommended. Compensatory Strategies and Precautions to be Taken for Safe Swallow: Sitting Upright (90 deg) Small Bites and Sips Alternate Liquids/Solids Rate of Ingestion Change Avoid Specific Foods Supervision While Eating and Drinking for Safe Swallow: Total Supervision (1:1) Foods to Avoid: Difficult to chew regular solids. Swallowing Recommended Treatments: Compens. Strategy Educat. Recommendation for Speech: NA:Typical Evaluation Comment: Pt agrees to trial Dysphagia Advanced Solids for ease of mastication and esophageal clearance. Recommending GI consult for further assessment. Frequency/Duration: Date Range for Service Req: Timeline to reassess: PRN Enrollment Consultant Clinican/Clinical Fellow: No Supervisory Statement: I have reviewed and agree with the student/clinical fellow's documentation: N/A Speech Language Pathologist: Yosvany Stokes M.A., CCC-IMMIGRATION INVESTIGATOR
--- NOTE | 2023-02-05 18:30 | HO.PM.IMPN ---
Subjective Subjective Date of Service: 02/05/23 Interval History: f/u on hypokalemia interval history: still with lo k but better, no tremores Physical Exam Vital Signs: Vital Signs: Last Vital Signs Temp 97.2 F 02/05/23 18:01 Pulse 69 02/05/23 18:01 Resp 18 02/05/23 18:01 BP 131/97 H 02/05/23 18:01 Pulse Ox 97 02/05/23 18:01 O2 Del Method Room Air 02/05/23 18:01 BMI result Body Mass Index 23.1 Const: Other: General: AO X 3, no acute distress Resp: CTA bilateral CVS: S1,S2,RRR GI: +BS, NT, no distention Skin: No rash Neuro: motor grossly intact Psych: appropriate affect Objective Data Active Medications Acetaminophen (Acetaminophen 325 Mg Tablet) 650 mg PO Q6H PRN PRN Reason: Pain, Mild (Pain Scale 1-3) Buprenorphine/Naloxone (Buprenorphine/Naloxone 8/2 Mg Film) 1 film SUBLINGUAL DAILY [facility] Last Admin: 02/05/23 12:21 Dose: 1 film Documented By: LENIN Enoxaparin Sodium (Enoxaparin Sodium 40 Mg/0.4 Ml Syringe) 40 mg SUBCUT Q24H [facility] Last Admin: 02/04/23 23:47 Dose: 40 mg Documented By: RAJEEV Thiamine HCl 100 mg/ Sodium (Chloride) 101 mls @ 202 mls/hr IV DAILY [facility] Last Infusion: 02/05/23 09:18 Dose: 0 mls/hr Documented By: LENIN Melatonin (Melatonin 3 Mg Tablet) 6 mg PO BEDTIME PRN PRN Reason: Insomnia Ondansetron HCl (Ondansetron Hcl 4 Mg/2 Ml Vial) 4 mg IVPUSH Q8H PRN PRN Reason: Nausea and Vomiting Sodium Chloride (0.9 % Sodium Chloride Flush 3 Ml Syringe) 3 ml IVFLUSH QSHIFT [facility] Last Admin: 02/05/23 15:27 Dose: 3 ml Documented By: LENIN Labs 02/05/23 05:48 02/05/23 11:56 Labs: Laboratory Results - last 24 hr 02/04/23 02/04/23 02/04/23 19:37 19:37 19:37 MCV 96.8 MCH 36.1 H MCHC 37.3 H RDW 12.6 Plt Count 233 D MPV 9.5 Immature Gran % (Auto) 0.5 H Neut % (Auto) 78.0 H Lymph % (Auto) 13.8 L Worth % (Auto) 7.2 Eos % (Auto) 0.3 Baso % (Auto) 0.2 Lymph # (Auto) 2.1 Worth # (Auto) 1.1 Eos # (Auto) 0.1 Baso # (Auto) 0.0 Abs Immat Gran (auto) 0.07 H Absolute Neuts (auto) 11.7 H Absolute Nucleated RBC 0.000 Nucleated RBC % (auto) 0.0 Anion Gap 18 Estim Creat Clear Calc 124.5 Estimated GFR > 60 Random Glucose 102 Calcium 6.6 L Magnesium 1.2 L* Iron TIBC % Saturation Unsat Iron Binding Troponin I High Sens 12.0 Lipase 80 H Vitamin B12 1055 H Folate 8.8 02/05/23 02/05/23 02/05/23 05:48 05:48 05:48 MCV 100.4 H MCH 37.0 H MCHC 36.9 H RDW 12.6 Plt Count 174 D MPV 9.8 Immature Gran % (Auto) 0.5 H Neut % (Auto) 73.0 Lymph % (Auto) 19.1 L Worth % (Auto) 6.4 Eos % (Auto) 0.7 Baso % (Auto) 0.3 Lymph # (Auto) 1.7 Worth # (Auto) 0.6 Eos # (Auto) 0.1 Baso # (Auto) 0.0 Abs Immat Gran (auto) 0.04 H Absolute Neuts (auto) 6.4 Absolute Nucleated RBC 0.000 Nucleated RBC % (auto) 0.0 Anion Gap 11 L Estim Creat Clear Calc 138.6 Estimated GFR > 60 Random Glucose 85 Calcium 6.1 L D Magnesium 1.9 Iron 33 TIBC 101 L % Saturation 33 Unsat Iron Binding 68 Troponin I High Sens Lipase Vitamin B12 Folate 02/05/23 11:56 MCV MCH MCHC RDW Plt Count MPV Immature Gran % (Auto) Neut % (Auto) Lymph % (Auto) Worth % (Auto) Eos % (Auto) Baso % (Auto) Lymph # (Auto) Worth # (Auto) Eos # (Auto) Baso # (Auto) Abs Immat Gran (auto) Absolute Neuts (auto) Absolute Nucleated RBC Nucleated RBC % (auto) Anion Gap 11 L Estim Creat Clear Calc Estimated GFR Random Glucose Calcium Magnesium Iron TIBC % Saturation Unsat Iron Binding Troponin I High Sens Lipase Vitamin B12 Folate Assessment and Plan (1) Hypokalemia: Status: Acute Plan This is a 37-year-old female with pertinent history of alcohol use disorder , opioid use disorder on suboxone who was sent to the emergency department for evaluation of abnormal labs. ?# alcohol use disorder.? Monitor CIWA.? Initiating thiamine and folic acid.? Consulting Addiction Team .? folate pending ?# hypokalemia due to GI losses.? replace and repeat, correct mag as well ?# ?dysphagia.? pass eval, regular food ? # opioid use disorder on Suboxone ?# hypomagnesemia due to alcohol use disorder.? Repeated ?#. reactive leukocytosis ?med rec pending ?DVT prophylaxis:? Lovenox Full code regulaer diet need for inpatient: low potassium, needs replacement Time Spent With Patient Time: Total time managing care of this patient today ____ minutes. Quality Stroke Does the patient have a stroke diagnosis?: No VTE Prior VTE?: No VTE Risk Level:: Medical - moderate - high VTE Device Contraindication: Treatment Not Indicated VTE Drug Contraindication: N/A - Med Ordered
[2023-02-05 19:48] LABS: Anion Gap 14 (12-20); Carbon Dioxide 28 mmol/L (22-29); Chloride 100 mmol/L (96-108); Potassium 2.9 mmol/L (3.3-5.1); Sodium 139 mmol/L (135-145)
[2023-02-06] VITALS (7 sets, daily range): BP systolic 127–155; BP diastolic 80–108; PULSE 66–79; RESP 12–20; TEMP 36.1–37.2; O2SAT 90–98
[2023-02-06] MEDS: Enoxaparin Sodium 40 MG/0.4 ML SYRINGE SUBCUT ×2 (00:24→20:52)
[2023-02-06] MEDS: 0.9 % Sodium Chloride Flush 3 ML SYRINGE IVFLUSH ×3 (00:25→20:53)
[2023-02-06 07:10] LABS: Blood Urea Nitrogen < 3 mg/dL (9-16); Creatinine Clr Calc Pharmacy 131.2; Estimated Glomerular Filt Rate > 60; Glucose Random 106 mg/dL (60-115)
[2023-02-06 07:22] LABS: Anion Gap 10 (12-20); Calcium 6.9 mg/dL (8.4-10.2); Carbon Dioxide 35 mmol/L (22-29); Chloride 99 mmol/L (96-108); Potassium 2.2 mmol/L (3.3-5.1); Sodium 142 mmol/L (135-145)
[2023-02-06] MEDS: Thiamine HCL 100 MG in 0.9 % Sodium Chloride 100 ML 202 MG IV (08:29)
[2023-02-06] MEDS: Potassium Chloride Packet 20 MEQ PACKET 40 MEQ PO ×3 (08:29→20:51)
[2023-02-06] MEDS: Buprenorphine/Naloxone 8/2 mg FILM 1 FILM SUBLINGUAL (08:30)
[2023-02-06] MEDS: Potassium Chloride/H20 10 MEQ/100 ML PIGGYBACK 100 MEQ IV ×2 (08:46→09:56)
[2023-02-06 08:48] LABS: Magnesium 1.8 mg/dL (1.6-2.6)
[2023-02-06] MEDS: Multivitamin TABLET 1 TAB PO (09:07)
[2023-02-06] MEDS: lisinopriL 10 MG TABLET PO (09:07)
--- NOTE | 2023-02-06 09:46 | MHC.CM.PN ---
ROSA MARIA 02/06/23, EMR REVIEWED, PT ADMITTED W/ABNORMAL BLOOD WORK, CM MET W/PT WHO REPORTS SHE LIVES W/ AND 2YO, PT IS INDEP W/ALL CARE, DENIES USE OF DME AND USES [facility] [place] FOR SUBOXONE. PT HAS BEEN SEEN BY [employer] ACQUISITION COORDINATOR AND WHEN ASKED PT DECLINES ETOH TX. PT VERIFIES PCP SAHARA MCCORMICK AT [facility], [facility] X3 AND PT REPORTS HER HCP IS HER MOTHER AND , COPY REQUESTED. D/C PLAN: HOME NO SERVICES W/FAMILY FOR TRANSPORT
--- NOTE | 2023-02-06 10:58 | MHC.RECOVRN ---
Chart reviewed. Attempted to meet with pt to further discuss [facility] and recovery resources, pt asleep, does not wake to voice. Will check in at a later time.
--- NOTE | 2023-02-06 12:31 | HO.PM.IMPN ---
Subjective Subjective Date of Service: 02/06/23 Interval History: Complaint of trouble swallowing as if food is getting stuck Physical Exam Vital Signs: Vital Signs: Last Vital Signs Temp 98.0 F 02/06/23 12:00 Pulse 68 02/06/23 12:00 Resp 19 02/06/23 12:00 BP 141/101 H 02/06/23 12:00 Pulse Ox 95 02/06/23 12:00 O2 Del Method Room Air 02/06/23 12:00 BMI result Body Mass Index 23.1 Const: Other: General: AO X 3, no acute distress Resp: CTA bilateral no oral lesions CVS: S1,S2,RRR GI: +BS, NT, no distention Skin: No rash Neuro: motor grossly intact Psych: appropriate affect Objective Data Active Medications Acetaminophen (Acetaminophen 325 Mg Tablet) 650 mg PO Q6H PRN PRN Reason: Pain, Mild (Pain Scale 1-3) Buprenorphine/Naloxone (Buprenorphine/Naloxone 8/2 Mg Film) 1 film SUBLINGUAL DAILY [facility] Last Admin: 02/06/23 08:30 Dose: 1 film Documented By: CATY Enoxaparin Sodium (Enoxaparin Sodium 40 Mg/0.4 Ml Syringe) 40 mg SUBCUT Q24H [facility] Last Admin: 02/06/23 00:24 Dose: 40 mg Documented By: LAY Thiamine HCl 100 mg/ Sodium (Chloride) 101 mls @ 202 mls/hr IV DAILY [facility] Last Infusion: 02/06/23 09:08 Dose: 0 mls/hr Documented By: CATY Lisinopril (Lisinopril 10 Mg Tablet) 10 mg PO DAILY [facility]; Protocol Last Admin: 02/06/23 09:07 Dose: 10 mg Documented By: CATY Melatonin (Melatonin 3 Mg Tablet) 6 mg PO BEDTIME PRN PRN Reason: Insomnia Multivitamins/Vitamin C (Multivitamin Tablet) 1 tab PO DAILY [facility] Last Admin: 02/06/23 09:07 Dose: 1 tab Documented By: CATY Ondansetron HCl (Ondansetron Hcl 4 Mg/2 Ml Vial) 4 mg IVPUSH Q8H PRN PRN Reason: Nausea and Vomiting Potassium Chloride (Potassium Chloride Packet 20 Meq Packet) 40 meq PO Q6H [facility] Stop: 02/07/23 02:16 Last Admin: 02/06/23 08:29 Dose: 40 meq Documented By: CATY Sodium Chloride (0.9 % Sodium Chloride Flush 3 Ml Syringe) 3 ml IVFLUSH QSHIFT [facility] Last Admin: 02/06/23 08:29 Dose: 3 ml Documented By: CATY Labs 02/05/23 05:48 02/06/23 06:27 Labs: Laboratory Results - last 24 hr 02/05/23 02/05/23 02/06/23 11:56 19:14 06:27 Anion Gap 11 L 14 10 L Estim Creat Clear Calc 131.2 Estimated GFR > 60 Random Glucose 106 Calcium 6.9 L D Magnesium 1.8 Assessment and Plan (1) Hypokalemia: Status: Acute Plan This is a 37-year-old female with pertinent history of alcohol use disorder , opioid use disorder on suboxone who was sent to the emergency department for evaluation of abnormal labs. ?# alcohol use disorder.? Monitor CIWA.? No signs of withdrawal. Addition med to see ?# hypokalemia due to GI losses.? replace and repeat, correct mag as well.. given IV and PO today ?# ?dysphagia.? pass eval, ? Globus hystericus, GI consult ? # opioid use disorder on Suboxone ?# hypomagnesemia due to alcohol use disorder.? Corrected and resolved ?#. reactive leukocytosis ? ?DVT prophylaxis:? Lovenox Full code regulaer diet need for inpatient: low potassium, needs replacement Time Spent With Patient Time: Total time managing care of this patient today ____ minutes. Quality Stroke Does the patient have a stroke diagnosis?: No VTE Prior VTE?: No VTE Risk Level:: Medical - moderate - high VTE Device Contraindication: Treatment Not Indicated VTE Drug Contraindication: N/A - Med Ordered
[2023-02-06 13:27] LABS: Anion Gap 15 (12-20); Carbon Dioxide 31 mmol/L (22-29); Chloride 99 mmol/L (96-108); Potassium 2.7 mmol/L (3.3-5.1); Sodium 142 mmol/L (135-145)
--- NOTE | 2023-02-06 15:47 | PM.EVENT ---
Event Note Date of Service: 02/06/23 Event Note: GI consult dictated Intermittent dysphagia for several months with nausea and vomiting. UGI ordered, omeprazole to treat any component of alcoholic gastritis,erosive esophagitis, etc. Time Spent With Patient Time: Total time managing care of this patient today ____ minutes.
[2023-02-06] MEDS: KCl 20 mEq in 5% Dex/0.45% Sod 20 MEQ/1,000 ML IV.SOLN 125 MEQ IVCONT (18:28)
[2023-02-06] MEDS: Omeprazole 20 MG CAPSULE.DR PO (18:28)
[2023-02-07] MEDS: KCl 20 mEq in 5% Dex/0.45% Sod 20 MEQ/1,000 ML IV.SOLN 125 MEQ IVCONT ×2 (01:33→12:56)
--- NOTE | 2023-02-07 02:03 | CONS_ITS ---
DATE OF SERVICE: 02/06/2023 REFERRING PHYSICIAN: Reese Parrish MD REASON FOR CONSULTATION: Dysphagia. HISTORY OF PRESENT ILLNESS: The patient is a pleasant 37-year-old woman, who was admitted to the hospital on February 04 because of electrolyte abnormalities. She has a history of alcohol abuse and had some nausea and vomiting prior to admission. Blood work was done through her primary care provider and she had electrolyte abnormalities. These were repeated in the emergency department showing a significant hypokalemia at 1.8 on February 04. She has been admitted to the hospital and treated with electrolyte supplementation and has had improvement, although her potassium this morning was still low. She describes a several month history of intermittent dysphagia, which occurs 2 to 3 times per week by her report. She reports no progressive dysphagia. Liquids seem to go down fine and she had been drinking alcohol approximately 5 drinks daily up until about one week ago. She has had solid food dysphagia, which has not been progressive and usually resolves on its own. She believes she has had significant weight loss since her symptoms of dysphagia began. She denies any underlying chronic heartburn symptoms. She has had no hematemesis or melena. She denies a prior history of peptic ulcer disease. PAST MEDICAL HISTORY: 1. Alcohol abuse. 2. Opioid dependence. 3. Hypertension. 4. Pancreatitis with hospital admission one year ago related to alcohol use. CURRENT MEDICATIONS: Her current medication list is reviewed in the chart. ALLERGIES: THERE ARE NONE REPORTED. FAMILY HISTORY: This is reviewed with the patient and is noncontributory. SOCIAL HISTORY: Alcohol use is as noted above. She denies recent opiate use. She is maintained on Suboxone. REVIEW OF SYSTEMS: SKIN: No pruritus. HEENT: Negative. CARDIOPULMONARY: She denies shortness of breath or chest pain. GASTROINTESTINAL: As above. GENITOURINARY: Negative. NEUROPSYCHIATRIC: Negative. PHYSICAL EXAMINATION: GENERAL: Shows a pleasant female, sitting comfortably in bed. VITAL SIGNS: Reviewed in the electronic medical record and are stable. SKIN: Anicteric. HEENT: Shows no scleral icterus. NECK: Without lymphadenopathy or thyromegaly. LUNGS: Clear. HEART: Shows regular rate and rhythm. S1 and S2. No murmur. ABDOMEN: Soft without focal masses or tenderness. Bowel sounds are present. No organomegaly is noted. EXTREMITIES: Without edema. LABORATORY DATA AND IMAGING STUDIES: Reviewed from last year. IMPRESSION: Dysphagia with nausea and vomiting. She likely has a component of alcoholic gastritis and possible erosive esophagitis from her alcohol use and I recommend starting omeprazole 20 mg daily. This has been ordered. Her dysphagia may be related more to esophageal dysmotility with possible component from erosive esophagitis and I would recommend obtaining a barium upper GI series for further evaluation. Depending on these results, she may need further evaluation with endoscopy. She has been seen in consultation by Speech Pathology and no aspiration issues have been identified. Thanks for asking me to see her. I will follow her in the hospital with you. MD TASHI Fleming/BILLY / [phone]
[2023-02-07] MEDS: Potassium Chloride Packet 20 MEQ PACKET 40 MEQ PO (02:47)
[2023-02-07 03:35] VITALS: BP 151/110; PULSE 69; RESP 18; TEMP 37.1; O2SAT 93
[2023-02-07] MEDS: Omeprazole 20 MG CAPSULE.DR PO (06:04)
[2023-02-07 07:20] VITALS: BP 140/79; PULSE 71; RESP 16; TEMP 36.7; O2SAT 94
[2023-02-07 08:19] LABS: Blood Urea Nitrogen < 3 mg/dL (9-16); Creatinine Clr Calc Pharmacy 126.7; Estimated Glomerular Filt Rate > 60; Glucose Random 137 mg/dL (60-115)
[2023-02-07 08:28] LABS: Anion Gap 11 (12-20); Calcium 7.6 mg/dL (8.4-10.2); Carbon Dioxide 29 mmol/L (22-29); Chloride 105 mmol/L (96-108); Potassium 3.4 mmol/L (3.3-5.1); Sodium 142 mmol/L (135-145)
[2023-02-07] MEDS: Thiamine HCL 100 MG in 0.9 % Sodium Chloride 100 ML 202 MG IV (09:29)
[2023-02-07] MEDS: Buprenorphine/Naloxone 8/2 mg FILM 1 FILM SUBLINGUAL (09:29)
[2023-02-07] MEDS: Multivitamin TABLET 1 TAB PO (09:33)
[2023-02-07] MEDS: 0.9 % Sodium Chloride Flush 3 ML SYRINGE IVFLUSH (09:33)
[2023-02-07] MEDS: lisinopriL 10 MG TABLET PO (09:33)
[2023-02-07 11:26] VITALS: BP 144/75; PULSE 56; RESP 16; TEMP 36.3; O2SAT 97
--- NOTE | 2023-02-07 11:26 | P.PNIM_ITS ---
Subjective Subjective Date of Service: 02/07/23 Interval History: Complaint of trouble swallowing as if food is getting stuck Physical Exam Vital Signs: Vital Signs: Last Vital Signs Temp 98.1 F 02/07/23 07:20 Pulse 71 02/07/23 07:20 Resp 16 02/07/23 07:20 BP 140/79 H 02/07/23 07:20 Pulse Ox 94 02/07/23 07:20 O2 Del Method Room Air 02/07/23 07:20 BMI result Body Mass Index 23.1 Const: Other: General: AO X 3, no acute distress Resp: CTA bilateral no oral lesions CVS: S1,S2,RRR GI: +BS, NT, no distention Skin: No rash Neuro: motor grossly intact Psych: appropriate affect Objective Data Active Medications Acetaminophen (Acetaminophen 325 Mg Tablet) 650 mg PO Q6H PRN PRN Reason: Pain, Mild (Pain Scale 1-3) Buprenorphine/Naloxone (Buprenorphine/Naloxone 8/2 Mg Film) 1 film SUBLINGUAL DAILY [facility] Last Admin: 02/07/23 09:29 Dose: 1 film Documented By: VANNESA Enoxaparin Sodium (Enoxaparin Sodium 40 Mg/0.4 Ml Syringe) 40 mg SUBCUT Q24H [facility] Last Admin: 02/06/23 20:52 Dose: 40 mg Documented By: LUANNE Thiamine HCl 100 mg/ Sodium (Chloride) 101 mls @ 202 mls/hr IV DAILY [facility] Last Admin: 02/07/23 09:29 Dose: 202 mls/hr Documented By: VANNESA Potassium Chloride/Dextrose/Sod Cl (Kcl 20 Meq In 5% Dex/0.45% Sod) 20 meq in 1,000 mls @ 125 mls/hr IVCONT .Q8H [facility] Last Infusion: 02/07/23 09:39 Dose: 0 mls/hr Documented By: VANNESA Potassium Chloride/Dextrose (Kcl 20 Meq In 5 % Dextrose) 20 meq in 1,000 mls @ 125 mls/hr IVCONT .Q8H [facility] Lisinopril (Lisinopril 10 Mg Tablet) 10 mg PO DAILY [facility]; Protocol Last Admin: 02/07/23 09:33 Dose: 10 mg Documented By: VANNESA Melatonin (Melatonin 3 Mg Tablet) 6 mg PO BEDTIME PRN PRN Reason: Insomnia Multivitamins/Vitamin C (Multivitamin Tablet) 1 tab PO DAILY [facility] Last Admin: 02/07/23 09:33 Dose: 1 tab Documented By: VANNESA Omeprazole (Omeprazole 20 Mg Capsule.) 20 mg PO DAILY@0630 [facility] Last Admin: 02/07/23 06:04 Dose: 20 mg Documented By: LUANNE Ondansetron HCl (Ondansetron Hcl 4 Mg/2 Ml Vial) 4 mg IVPUSH Q8H PRN PRN Reason: Nausea and Vomiting Sodium Chloride (0.9 % Sodium Chloride Flush 3 Ml Syringe) 3 ml IVFLUSH QSHIFT [facility] Last Admin: 02/07/23 09:33 Dose: 3 ml Documented By: VANNESA Labs 02/05/23 05:48 02/07/23 07:43 Labs: Laboratory Results - last 24 hr 02/06/23 02/07/23 13:03 07:43 Anion Gap 15 11 L Estim Creat Clear Calc 126.7 Estimated GFR > 60 Random Glucose 137 H Calcium 7.6 L D Assessment and Plan (1) Essential hypertension: Status: Acute (2) Opioid use disorder: Status: Acute Plan This is a 37-year-old female with pertinent history of alcohol use disorder , opioid use disorder on suboxone who was sent to the emergency department for evaluation of abnormal labs. ?# alcohol use disorder.?She is not withdrawing ?# hypokalemia due to GI losses.? replaced and now normal ?# ?dysphagia.? pass eval, ? Globus hystericus, GI recommend upper GI, PPI ? # opioid use disorder on Suboxone ?# hypomagnesemia due to alcohol use disorder.? Corrected and resolved ?# reactive leukocytosis, no sings of infection ? ?DVT prophylaxis:? Lovenox Full code regulaer diet need for inpatient: low potassium, needs replacement Time Spent With Patient Time: Total time managing care of this patient today ____ minutes. Quality Stroke Does the patient have a stroke diagnosis?: No VTE Prior VTE?: No VTE Risk Level:: Medical - moderate - high VTE Device Contraindication: Treatment Not Indicated VTE Drug Contraindication: N/A - Med Ordered
--- NOTE | 2023-02-07 11:48 | PM.GIPN ---
Subjective Subjective Date of Service: 02/07/23 Interval History: feels ok Critical Care Time (minutes): 0 Physical Exam Vital Signs: Vital Signs: Last Vital Signs Temp 97.4 F 02/07/23 11:26 Pulse 56 02/07/23 11:26 Resp 16 02/07/23 11:26 BP 144/75 H 02/07/23 11:26 Pulse Ox 97 02/07/23 11:26 O2 Del Method Room Air 02/07/23 11:26 BMI result Body Mass Index 23.1 GI: Other: abdomen is soft and nontender Objective Data Labs 02/05/23 05:48 02/07/23 07:43 Labs: Laboratory Results - last 24 hr 02/06/23 02/07/23 13:03 07:43 Sodium 142 142 Potassium 2.7 L D 3.4 D Chloride 99 105 Carbon Dioxide 31 H 29 Anion Gap 15 11 L BUN < 3 L Creatinine 0.58 Estim Creat Clear Calc 126.7 Estimated GFR > 60 Random Glucose 137 H Calcium 7.6 L D Procedures Date of Service Date of Service: 02/07/23 Progress Note: A&P Assessment and plan (1) Dysphagia: Status: Acute Assessment and Plan: going for additional views on ugi as only ba swallow was done earlier. Those images look ok to my review. continue omeprazole. Time Spent With Patient Time: Total time managing care of this patient today ____ minutes. Quality Stroke Does the patient have a stroke diagnosis?: No VTE Prior VTE?: No VTE Risk Level:: Medical - moderate - high VTE Device Contraindication: Treatment Not Indicated VTE Drug Contraindication: N/A - Med Ordered
[2023-02-07 15:51] VITALS: BP 148/72; PULSE 67; RESP 14; TEMP 36; O2SAT 100
--- NOTE | 2023-02-07 15:58 | PM.DS ---
DS: Providers Provider Date of Service: 02/07/23 Date of admission: 02/05/23 08:58 Primary care physician: Unknown Physician Consults: 02/04/23 22:41 Addiction Medicine Routine Consulting Provider: Addiction Covering Reason for consultation: alcohol use disorder 02/06/23 12:30 Consult to Gastroenterology Routine Consulting Provider: Cheikh Morrow Reason for consultation: trouble swallowing, food getting stuck Has provider been notified: No DS: Diagnosis Discharge Diagnosis (1) Dysphagia: Status: Acute DS: Summary Hospital Course Hospital Course: Chief Complaint: Abnormal electrolytes This is a 37-year-old female with pertinent history of alcohol use disorder , opioid use disorder on suboxone who was sent to the emergency department for evaluation of abnormal labs. Patient states she has been having nonbloody episodes of nausea and vomiting that started 2-3 days prior to presentation.? She also has been having difficulty with swallowing food and maintaining p.o. intake.? Does drink alcohol every day.? unclear history of alcohol withdrawal.? Patient states that she had an appointment with PCP and got blood work done.? Electrolyte abnormalities were noted and she was sent to the ER.? Patient denies fever, chills, chest discomfort, palpitations, shortness of breath, changes in urinary or bowel habits.? She states that she is compliant with lisinopril and Suboxone In the emergency department, patient's potassium found to be 1.8 and magnesium was found to be low. Hospital course This is a 37-year-old female with pertinent history of alcohol use disorder , opioid use disorder on suboxone who was sent to the emergency department for evaluation of abnormal labs. ?# alcohol use disorder, she has historty of chronic alcohol use but was not in withdrawal while in hospital, she was under [place] watch, and given vitamin suplement with thiamine, folate. We have discussed the dangers associated with chronic alcohol use and she will amend her way and follow through resources that have been offered to her ?# hypokalemia due to GI losses, and from nutritional depletion from chronic alcohol use .. Her potassium was corrected with IV potassium and oral potassium and her level is presently normal and will be some supplement and repeat potassium level within a week ?# hypomagnesemia due to alcohol use disorder.? Corrected and resolved ?# ?dysphagia.?she was evaluated by GI (Dr. Morrow) and underwent Upper Gi series which showed evidence of GERD and is recommended to take Prilosec and obviously stop alcohol, and she may follow up with Dr. Morrow ? # opioid use disorder on Suboxone ?# reactive leukocytosis, no sings of infection Time Spent with Patient Time attestation: Total time managing care of this patient today ____ minutes. Discharge coordination time: Greater than 30 minutes Quality: Safe Use of Opioids Does Pt have an Active Cancer Diagnosis on the Problem List?: No Quality: Stroke Does the patient have a stroke diagnosis?: No Physical Exam Vital Signs: Vital Signs: Last Vital Signs Temp 96.8 F 02/07/23 15:51 Pulse 67 02/07/23 15:51 Resp 14 02/07/23 15:51 BP 148/72 H 02/07/23 15:51 Pulse Ox 100 02/07/23 15:51 O2 Del Method Room Air 02/07/23 15:51 BMI result Body Mass Index 23.1 Const: Other: General: AO X 3, no acute distress Resp: CTA bilateral CVS: S1,S2,RRR GI: +BS, NT, no distention Skin: No rash Neuro: motor grossly intact Psych: appropriate affect DS: Data Data Completed and Pending Labs on day of discharge: Laboratory Results - last 24 hr 02/07/23 07:43 Sodium 142 Potassium 3.4 D Chloride 105 Carbon Dioxide 29 Anion Gap 11 L BUN < 3 L Creatinine 0.58 Estim Creat Clear Calc 126.7 Estimated GFR > 60 Random Glucose 137 H Calcium 7.6 L D Discharge Plan Discharge Anticipated Discharge Date/Time: 02/07/23 15:46 Patient Disposition: Home, Self-Care Discharge Diagnosis: Hypokalemia, alcohol use desorder, Referrals: Physician,Unknown J [Physician] - 1 Week Discharge Medications: New omeprazole 20 mg Capsule,Delayed Release(Dr/Ec) 20 mg PO DAILY@0630 Qty: 30 0RF potassium chloride 20 mEq tablet extended release 20 meq PO DAILY Qty: 10 0RF magnesium oxide 400 mg magnesium capsule 400 mg PO DAILY Qty: 20 0RF Continued multivitamin Tablet 1 tab PO DAILY lisinopril 10 mg tablet 1 tab PO DAILY buprenorphine-naloxone [Suboxone] 8-2 mg film 1 strip sublingual DAILY Discharge Orders: Discharge Order (Routine); Ordered 02/07/23 Ordered By: Reese Parrish Diet: Advance to usual diet Activity on Discharge: As tolerated Stand Alone Forms: Patient Portal Discharge page Other Ambulatory Orders: Basic Metabolic Panel (Routine) Timeframe: [id number] Facility: [facility] - Location: Laboratory Ordered By: Reese Parrish Care Plan Goals: Full recovery from alcohol use desorder maintaining normal electrolytes avoid substance use Health Concerns: Alcohol use disorder Hypokalemia Hypomagnesia Substance use disorder Plan of Treatment: Take potassium and magnesium supplementation, have your lab checked within a week and then follow-up with your primary care doctor within a week. Take Prilosec as recommended for GERD Avoid alcohol or illicit substances and follow through the resources given to you Assessment: as above Discharge Date/Time: 02/07/23 16:39
== END 2023-02-07 16:39 | disposition home or self-care (01) | DRG 241 ==
LOC: HO.ED 22:17 → HO.EDOVER 22:50 → HO.IMC 02-05 15:56
PROVIDERS: Student in an Organized Health Care Education/Training Program; Admitting Provider Student in an Organized Health Care Education/Training Program; Emergency Provider Emergency Medicine Emergency Medical Services; PCP Nurse Practitioner Family; Visit Provider Internal Medicine
DX: K29.20 Alcoholic gastritis without bleeding (principal); E83.42 Hypomagnesemia; E87.6 Hypokalemia; K21.9 Gastro-esophageal reflux disease without esophagitis; F11.20 Opioid dependence, uncomplicated; I10 Essential (primary) hypertension; F10.10 Alcohol abuse, uncomplicated; R13.10 Dysphagia, unspecified; Z87.891 Personal history of nicotine dependence; Z79.899 Other long term (current) drug therapy
CPT/HCPCS: 36415; 74240; 80048; 80051; 82607; 82746; 83540; 83690; 83735; 84484; 85025; 92610; 93005; 99285; J1650; J3411; J3475; P9047

== ENCOUNTER 2024-03-31 15:44 | Inpatient (IN) | payer MEDICAID, OTHER, SELFPAY ==
--- NOTE | ~2024-03-31 | XR_ITS ---
EXAMINATION: XR ABDOMEN KUB CLINICAL INDICATION: Abdominal distention, low suspicion for small bowel obstruction. COMPARISON: CT abdomen pelvis 04/30/2022 TECHNIQUE: AP view of the abdomen. FINDINGS: There is scattered stool and gas seen throughout the colon without distention. There is no organomegaly. No radiopaque calculi seen. No gross bony abnormality. XR/XR KUB IMPRESSION: Unremarkable abdomen examination.
--- NOTE | ~2024-03-31 | CT_ITS ---
STUDY PERFORMED: CTA ABDOMEN WITHOUT AND WITH CONTRAST HISTORY: Pseudocyst, evaluate for bleeding DESCRIPTION: Routine abdomen CTA protocol with contrast was performed. 80 mL of Omnipaque 350 was administered. 3D POSTPROCESSING: Multiple 3-D angiographic images were processed from the initial data set by the mechatronics technologist at the modality workstation under concurrent physician supervision. DOSE LOWERING TECHNIQUES: This CT examination was performed using dose optimization techniques as appropriate, variously including the following: - Automated exposure control - Adjustment of mA and/or kV according to patient size (this includes techniques or standardized protocols for targeted exams where dose is matched to indication/reason for exam; i.e. extremities or head) - Use of iterative reconstruction technique DLP: 216 mGycm. COMPARISON: CT from 03/31/2024 FINDINGS: VASCULAR: ABDOMINAL AORTA: Normal caliber and patent. No significant atherosclerotic plaque. Visualized portions of the iliac arteries are widely patent. CELIOMESENTERIC ARTERIES: Patent. RENAL ARTERIES: Patent. NONVASCULAR: Lung Bases: Small bilateral pleural effusions are present. There is increased patchy consolidation in the bilateral lower lobes. Liver, Gallbladder and Biliary Tree: The liver is normal in size, shape, and attenuation. There is 8mm cyst in the right lobe of the liver No biliary ductal dilatation is present. Layering hyperdensity seen within the gallbladder most consistent with vicarious excretion of contrast from prior study. There is nonspecific gallbladder wall edema which is unchanged compared to the prior exam. Pancreas: There are several irregularly-shaped fluid collections along the course of the pancreas and surrounding regions, unchanged compared to prior consistent with pancreatic pseudocysts. Much of the pancreatic parenchyma is not well defined in this setting, and there is moderate surrounding stranding. Pseudocyst near the tail of the pancreas which contains hyperdensity is unchanged in appearance compared to the prior exam without active extravasation of contrast. This likely represents some residual blood products. There is a pseudocyst just posterior to this along the audelia of the left hemidiaphragm which is stable in size however now contains new hyperdensity consistent with acute blood products versus contrast extravasation. Imaging was performed in the arterial phase only without associated noncontrast or delayed phase images to further delineate this hyperdensity. Of note, the left phrenic artery is passing directly adjacent to this pseudocyst and could be the source of hemorrhage. There is no evidence of a pseudoaneurysm off the phrenic artery. Spleen: Unremarkable. Adrenal Glands: Unremarkable. Kidneys and Ureters: The kidneys are normal in size, shape, and attenuation. No hydronephrosis, hydroureter, or calculi seen. Perinephric stranding is unchanged. Bladder: Partially visualized containing a hyperdense IV contrast from a prior CT scan Gastrointestinal Tract: The visualized small and large bowel are unremarkable. Abdominal Wall: No significant hernia is appreciated. Lymph Nodes: Multiple small lymph nodes seen throughout the retroperitoneum and the mesentery Osseous Structures: Unremarkable. Other: Small amount of perihepatic ascites which is unchanged. Small amount of pelvic ascites which is slightly increased in amount compared to the prior exam CT/CT angio abdomen IMPRESSION: 1. There is a pseudocyst along the audelia of the left hemidiaphragm which is stable in size but now contains new hyperdensity consistent with acute blood products versus contrast extravasation. Imaging was performed in the arterial phase only without associated noncontrast or delayed phase images to further delineate this hyperdensity. Of note, the left phrenic artery is passing directly adjacent to this pseudocyst and could be the source of hemorrhage. No evidence of a pseudoaneurysm off the phrenic artery. 2. Pseudocyst near the tail of the pancreas is unchanged in size and contains hyperdensity consistent with some residual blood products. No active extravasation of contrast is seen. 3. Small amount of perihepatic ascites is unchanged. Small amount of pelvic ascites is slightly increased compared to the prior exam. 4. Increasing patchy consolidation in the bilateral lower lobes. This critical result was discussed with Tin Miranda MD at 1515 on 04/01/2024 and it was ascertained that the content and urgency of the report was understood at the time of direct communication.
--- NOTE | ~2024-03-31 | CT_ITS ---
EXAMINATION: CT ABDOMEN AND PELVIS WITH CONTRAST CLINICAL INFORMATION: Diffuse abdominal pain, worse epigastric COMPARISON: 04/30/2022 TECHNIQUE: Multidetector volumetric images were obtained from the superior aspect of the liver through the pubic symphysis following administration 85 mL of Omnipaque 350 intravenous contrast. Sagittal and coronal reformatted images were obtained on the technologist's workstation. Oral contrast: No This CT examination was performed using dose optimization techniques as appropriate, variously including the following: *Automated exposure control *Adjustment of mA and/or kV according to patient size (this includes techniques or standardized protocols for targeted exams where dose is matched to indication/reason for exam; i.e. extremities or head) *Use of iterative reconstruction technique DLP: 313 mGy-cm FINDINGS: LUNG BASES: Interlobular septal thickening is noted, left greater than right, which may reflect mild interstitial edema. Scattered mild patchy ground glass opacities are also noted at the left base. LIVER, GALLBLADDER, AND BILIARY TREE: The liver is normal in size, shape, and attenuation. Small hypoattenuating focus in the right hepatic lobe favors a cyst. Mild periportal edema is noted. Gallbladder appears mildly distended with suspected wall thickening versus pericholecystic fluid. No significant biliary ductal dilatation. PANCREAS: There are several irregularly-shaped fluid collections along the course of the pancreas and surrounding regions, new compared to prior and most suspicious for pancreatic pseudocysts. Much of the pancreatic parenchyma is not well defined in this setting, and there is moderate surrounding stranding. The largest collection measures up to 7.3 x 6.1 cm on image 21/97 and is located superior to the proximal pancreas abutting the left hepatic lobe and left margin of the IVC. Additional prominent collections measure up to 4.9 x 4.2 cm on image 32/97 in the region of the pancreatic body, and 3.5 x 3.5 cm on image 24/97 in the region of the pancreatic tail which contains some internal mildly hyperdense material which could represent blood products. Fluid collection in the region of the pancreatic head on image 34/97 measures approximately 4.8 x 2.0 cm. There is also a collection posterior to the distal pancreas and medial to the left adrenal gland on image 22/97 measuring 2.9 x 2.1 cm. SPLEEN: Unremarkable. ADRENAL GLANDS: Unremarkable. KIDNEYS AND URETERS: Bilateral nephrograms are symmetric. No hydronephrosis or obstructing calculus identified. BLADDER: Partially distended with mild diffuse mural prominence, of uncertain clinical significance. GASTROINTESTINAL TRACT: No evidence of bowel obstruction or significant wall thickening. The appendix is unremarkable. Small amount of free fluid in the pelvis. No free air is seen. ABDOMINAL WALL: No significant hernia is appreciated. LYMPH NODES: Scattered mesenteric and retroperitoneal subcentimeter lymph nodes are present, without significant enlargement by size criteria. VASCULAR: There is mass effect on the upper superior mesenteric vein and portosplenic confluence from an adjacent pseudocyst. The course of the splenic vein is difficult to follow in its entirety, and new varices are noted in the left upper quadrant raising concern for splenic vein thrombosis or significant narrowing. PELVIC VISCERA: Unremarkable. OSSEOUS STRUCTURES: Unremarkable. CT/CT abdomen pelvis w IV con IMPRESSION: 1. Multiple fluid collections along the course of the pancreas and surrounding regions, most suspicious for pancreatic pseudocysts. Much of the pancreatic parenchyma is not well defined in this setting, and there is moderate surrounding stranding. One of these collections demonstrates mild internal hyperdense material, which could be indicative of blood products. 2. Mass effect on the upper superior mesenteric vein and portosplenic confluence from an adjacent pseudocyst. The course of the splenic vein is difficult to follow in its entirety, and new varices are noted in the left upper quadrant raising concern for splenic vein thrombosis or significant narrowing. 3. Small amount of free fluid in the pelvis. 4. Mild interstitial edema at the lung bases.
[2024-03-31 16:01] VITALS: BP 150/114; PULSE 108; RESP 18; TEMP 36.6; O2SAT 98; BMI 19.7
--- NOTE | 2024-03-31 16:03 | ED.ABDPAIN ---
HPI - Abdominal Pain General Chief Complaint: ETOH/Substance Use Stated Complaint: Abdominal pain Time Seen by Provider: 03/31/24 17:35 Source: patient Mode of arrival: ambulatory Limitations: no limitations History of Present Illness ED Provider: Dr. Rochelle Brooks HPI narrative: Patient comes to the emergency room complaining of abdominal distention, general malaise for 1 week, patient states that over the last 24 hours she has been feeling worse than usual. Patient admits that she drinks one sleeve of alcohol almost daily. Patient did not drink today. Patient states that earlier in the week patient had multiple episodes of vomiting, no diarrhea. Patient denies any URI symptoms, no sick contacts. Related Data Home Medications ?Medication ?Instructions ?Recorded ?Confirmed buprenorphine 8 mg-naloxone 2 mg 1 strip sublingual DAILY 05/01/22 02/05/23 sublingual film (Suboxone) lisinopril 10 mg tablet 1 tab PO DAILY 05/01/22 02/05/23 multivitamin 1 tab PO DAILY 05/01/22 02/05/23 Previous Rx's ?Medication ?Instructions ?Recorded magnesium oxide 400 mg PO DAILY #20 caps 02/07/23 omeprazole 20 mg capsule,delayed 20 mg PO DAILY@0630 #30 caps 02/07/23 release potassium chloride 20 mEq 20 meq PO DAILY #10 tabs 02/07/23 tablet,extended release cefuroxime axetil 250 mg tablet 250 mg PO BID #14 tabs 04/01/24 Allergies Allergy/AdvReac Type Severity Reaction Status Date / Time No Known Allergies Allergy Verified 03/31/24 16:07 Review of Systems Review of Systems Constitutional : No Weight loss, No Fever, No Chills, No Night Sweats, complaining of fatigue and generalized malaise ENT/Mouth : No Hearing loss, No Ear Pain, No Nasal Congestion, No Sinus Pain, No Hoarseness, No sore throat, No Rhinorrhea, No Swallowing Difficulty Eyes: No Eye Pain, No Swelling, No Redness, No Foreign Body, No Discharge, No Vision Changes Cardiovascular : No Chest Pain, No SOB, No Dyspnea on Exertion, No Orthopnea, No Edema, No Palpitations Respiratory : No Cough, No Sputum, No Wheezing, No Smoke Exposure, No Dyspnea Gastrointestinal : Complaining of nausea, 1 episode of vomiting within a week No Diarrhea, No Constipation, complaining of abdominal distention and discomfort Genitourinary : no irregular bleeding, No Dysuria, No Urinary Frequency, No Hematuria, No Urinary Incontinence, No Urgency, No Flank Pain, No Urinary Flow Changes, No Hesitancy Musculoskeletal : No joint pain, No Myalgias, No Joint Swelling Skin : No Skin Lesions, No rash Neuro : No Weakness, No Numbness, No Paresthesias, No Loss of Consciousness, No Dizziness, No Headache Psych : No Anxiety/Panic, No Depression, No SI/HI/AH/VH, No Social Issues, Heme/Lymph: No Bruising, No Bleeding,No Lymphadenopathy Endocrine : No Polyuria, No Polydipsia, No Temperature Intolerance [facility] Past Medical History Medical History Essential hypertension Opioid use disorder Alcohol use disorder Social History Social History Household Members: Spouse Housing: House Do you presently have visiting nurse or other home services: No Alcohol intake: current Alcohol intake frequency: 3 or more drinks per day Alcohol type: beer and hard liquor Patient Tobacco Use Status: Former Tobacco user Tobacco use type: Cigarette Cigarette Packs Per Day: 0.5 Cigarettes Per Day: 10.0 Years Smoked: >10 Smoked in Last 30 Days: Yes e-Cigarette/Vaping Use: Former Use Second Hand Smoke Exposure: No Use of substances other than those prescribed or required for medical reasons: No Advance Directives: No Advance Directives Information Provided: No Patient : No service: No Current occupational status: employed and student Physical Exam ED Vital Signs: Vital Signs - 24 hr 03/31/24 16:01 03/31/24 18:07 03/31/24 19:46 Temperature 97.9 F 98.0 F 98.0 F Pulse Rate 108 H 92 84 Respiratory Rate 18 16 14 Blood Pressure 150/114 H 142/101 H 138/101 H Pulse Oximetry 98 100 96 Oxygen Delivery Method Room Air Room Air Room Air 03/31/24 21:38 04/01/24 00:00 04/01/24 01:57 Temperature 98.1 F 97.6 F 97.6 F Pulse Rate 85 76 71 Respiratory Rate 12 16 12 Blood Pressure 123/96 H 127/95 H 107/81 Pulse Oximetry 94 96 96 Oxygen Delivery Method Room Air Room Air Room Air BMI result Body Mass Index 19.7 Const Other: Appearance: Alert. Oriented X3. No acute distress. Eyes: Pupils equal, round and reactive to light. ENT: Pharynx normal. Neck: Normal inspection. Neck supple. No lymph nodes noted. No crepitus CVS: Normal heart rate and rhythm. Pulses normal. Normal S1 and S2 Respiratory: No respiratory distress. Breath sounds normal. No Wheezing. No rales Abdomen: Soft and nontender. No rigidity. No distention. Skin: Skin warm and dry. Normal skin color. Normal skin turgor. Extremities: No lower extremity edema. No Lacerations. No Rash Neuro: Oriented X 3. No motor deficit. No sensory deficit. Moving all extremities. No slurred speech. CN 2 through 12 grossly intact Psych: calm, cooperative, normal affect Course Course Course Narrative: This is a Rapid Medical Examination (RME) performed by Lois López PA-C in triage. Full HPI, ROS, assessment and treatment plan per primary provider in the Main ED. 38 yo female with history of alcohol use disorder and opioid use disorder on suboxonewho presents to the ER for evaluation of abdominal distention and discomfort that started today when she woke up. Pain with standing straight up and walking. Numbness to bilateral legs, hands and abdomen. Had 3 drinks last night. No history of withdrawal in the past. Plan: lab workup, covid swab Reevaluation(s) Reevaluation #1: critical result of K. 2.3 and bicarb 40 oral PO KCL and IV KCL ordered to start repletion along w/ IVF. charge nurse made aware of orders and need to come back Time: 17:07 Medical Decision Making Medical Decision Making MDM Narrative: -my interpretation of labs: Hematology at baseline. Chemistry shows a potassium of 2.3, bicarb 40, lipase 81 which is baseline for the patient. LFTs elevated in alcohol abuse pattern. ETOH levels negative -patient receiving IV fluids, supplemental potassium both IV and p.o., magnesium levels are normal -patient states that she is not interested in detox -KUB: No abnormality. -patient continues to have abdominal pain. -my interpretation of CT scan of the abdomen: Possible ileus, pancreatic pseudocysts radiology report pending -patient was able to tolerate p.o. potassium, potassium is now 3.9. Patient's bicarb significantly improved, now 32 nearly back to normal -CT scan of the abdomen: Pancreatic Pseudocysts, possible splenic vein thrombosis or significant narrowing -patient continues having abdominal pain despite pain medication. -I discussed the patient with , patient being admitted -patient's vitals remained stable. No signs of active bleeding Differential Diagnosis Differential Diagnoses: The differential diagnosis associated with the presentation includes (Ileus, pyelonephritis, UTI, SBO) Admission/Observation Consideration of admission/observation: Escalation of care including admission/observation considered (Given patient's presentation, observation considered) Lab Data MDM Lab Attestation statement: I reviewed the patient's lab results. 03/31/24 16:26 04/01/24 01:01 Labs: Lab Results 03/31/24 03/31/24 03/31/24 Range/Units 16:26 19:55 21:37 WBC 7.6 (4.8-10.8) X10*3/uL RBC 3.74 L D (4.20-5.50) X10*6/uL Hgb 13.2 D (12.0-16.0) g/dl Hct 37.2 D (37.0-47.0) % MCV 99.5 H (80.0-98.0) fL MCH 35.3 H (27.0-33.0) pg MCHC 35.5 H (31.0-35.0) g/dl RDW 12.5 (11.0-16.0) % Plt Count 196 (160-400) X10*3/uL MPV 8.5 L (9.4-12.3) fL Immature Gran % (Auto) 0.7 H (0.0-0.4) % Neut % (Auto) 70.8 (45-73) % Lymph % (Auto) 18.2 L (20-40) % [place] % (Auto) 9.1 (2-11) % Eos % (Auto) 0.9 (0-4) % Baso % (Auto) 0.3 (0-2) % Lymph # (Auto) 1.4 (1.2-4.9) X10*3/uL [place] # (Auto) 0.7 (0.1-1.2) X10*3/uL Eos # (Auto) 0.1 (0.0-0.4) X10*3/uL Baso # (Auto) 0.0 (0.0-0.2) X10*3/uL Abs Immat Gran (auto) 0.05 H (0.00-0.03) X10*3/uL Absolute Neuts (auto) 5.4 (2.0-8.3) x10*3/uL Absolute Nucleated RBC 0.000 (0.0-0.012) X10*3/uL Nucleated RBC % (auto) 0.0 (0.0-0.2) /100WBC Sodium 138 138 (135-145) mmol/L Potassium 2.3 L* 2.8 L* D (3.3-5.1) mmol/L Chloride 88 L 92 L (96-108) mmol/L Carbon Dioxide 40 H* D 37 H (22-29) mmol/L Anion Gap 12 12 (12-20) BUN 6 L 6 L (9-16) mg/dL Creatinine 0.61 0.53 (0.5-1.4) mg/dL Estim Creat Clear Calc 108.0 124.4 Estimated GFR > 60 > 60 Random Glucose 123 H 109 (60-115) mg/dL Calcium 8.6 D 8.2 L (8.4-10.2) mg/dL Magnesium 1.7 (1.6-2.6) mg/dL Total Bilirubin 0.6 (0.0-1.0) mg/dL Direct Bilirubin 0.3 (0.0-0.5) mg/dL AST 40 H (5-31) U/L ALT 17 (0-31) U/L Alkaline Phosphatase 186 H (39-117) U/L Total Protein 5.9 L (6.5-8.0) g/dL Albumin 2.7 L (3.5-5.0) g/dL Lipase 81 H (8-78) U/L Beta HCG, Quant Cancelled Cancelled Urine Color Dark Yellow Urine Appearance Turbid Urine pH 7.5 (5.0-9.0) Ur Specific [place] 1.015 (1.005-1.025) Urine Protein 30 (1+) H (Neg-Trace) mg/dL Urine Glucose (UA) Negative (Negative) mg/dL Urine Ketones Negative (Negative) mg/dL Urine Blood Negative (Negative) Urine Nitrite Negative (Negative) Ur Leukocyte Esterase Large (3+) H (Negative) Urine RBC 0-2 (0-2) /HPF Urine WBC >50 H (0-5) /HPF Ur Squamous Epith Cells 3-5 (0-2) /HPF Urine Bacteria 4+ (None Seen) Hyaline Casts 0-2 (0-2) /LPF Urine Test NEGATIVE (NEGATIVE) Urine Opiates Screen Not Detected (Not Detect) Ur Buprenorphine Scrn Positive H (Not Detect) ng/mL Ur Oxycodone Screen Not Detected (Not Detect) ng/mL Urine Methadone Screen Not Detected (Not Detect) ng/mL Urine Fentanyl Screen Not Detected (Not Detect) Ur Barbiturates Screen Not Detected (Not Detect) Ur Phencyclidine Scrn Not Detected (Not Detect) Ur Amphetamines Screen Not Detected (Not Detect) U Benzodiazepines Scrn Not Detected (Not Detect) Urine Cocaine Screen Not Detected (Not Detect) U Marijuana (THC) Screen Not Detected (Not Detect) Ethyl Alcohol < 10 mg/dL COVID-19 ([facility]IE) Negative (Negative) COVID-19 Clin Com See Note 04/01/24 Range/Units 01:01 WBC (4.8-10.8) X10*3/uL RBC (4.20-5.50) X10*6/uL Hgb (12.0-16.0) g/dl Hct (37.0-47.0) % MCV (80.0-98.0) fL MCH (27.0-33.0) pg MCHC (31.0-35.0) g/dl RDW (11.0-16.0) % Plt Count (160-400) X10*3/uL MPV (9.4-12.3) fL Immature Gran % (Auto) (0.0-0.4) % Neut % (Auto) (45-73) % Lymph % (Auto) (20-40) % [place] % (Auto) (2-11) % Eos % (Auto) (0-4) % Baso % (Auto) (0-2) % Lymph # (Auto) (1.2-4.9) X10*3/uL [place] # (Auto) (0.1-1.2) X10*3/uL Eos # (Auto) (0.0-0.4) X10*3/uL Baso # (Auto) (0.0-0.2) X10*3/uL Abs Immat Gran (auto) (0.00-0.03) X10*3/uL Absolute Neuts (auto) (2.0-8.3) x10*3/uL Absolute Nucleated RBC (0.0-0.012) X10*3/uL Nucleated RBC % (auto) (0.0-0.2) /100WBC Sodium 135 (135-145) mmol/L Potassium 3.9 D (3.3-5.1) mmol/L Chloride 96 (96-108) mmol/L Carbon Dioxide 32 H (22-29) mmol/L Anion Gap 11 L (12-20) BUN 6 L (9-16) mg/dL Creatinine 0.54 (0.5-1.4) mg/dL Estim Creat Clear Calc 122.1 Estimated GFR > 60 Random Glucose 105 (60-115) mg/dL Calcium 8.3 L (8.4-10.2) mg/dL Magnesium (1.6-2.6) mg/dL Total Bilirubin (0.0-1.0) mg/dL Direct Bilirubin (0.0-0.5) mg/dL AST (5-31) U/L ALT (0-31) U/L Alkaline Phosphatase (39-117) U/L Total Protein (6.5-8.0) g/dL Albumin (3.5-5.0) g/dL Lipase (8-78) U/L Beta HCG, Quant Urine Color Urine Appearance Urine pH (5.0-9.0) Ur Specific [place] (1.005-1.025) Urine Protein (Neg-Trace) mg/dL Urine Glucose (UA) (Negative) mg/dL Urine Ketones (Negative) mg/dL Urine Blood (Negative) Urine Nitrite (Negative) Ur Leukocyte Esterase (Negative) Urine RBC (0-2) /HPF Urine WBC (0-5) /HPF Ur Squamous Epith Cells (0-2) /HPF Urine Bacteria (None Seen) Hyaline Casts (0-2) /LPF Urine Test (NEGATIVE) Urine Opiates Screen (Not Detect) Ur Buprenorphine Scrn (Not Detect) ng/mL Ur Oxycodone Screen (Not Detect) ng/mL Urine Methadone Screen (Not Detect) ng/mL Urine Fentanyl Screen (Not Detect) Ur Barbiturates Screen (Not Detect) Ur Phencyclidine Scrn (Not Detect) Ur Amphetamines Screen (Not Detect) U Benzodiazepines Scrn (Not Detect) Urine Cocaine Screen (Not Detect) U Marijuana (THC) Screen (Not Detect) Ethyl Alcohol mg/dL COVID-19 ([facility]IE) (Negative) COVID-19 Clin Com Independent Interpretation I performed an independent interpretation of an: CT Scan Radiology Impression Discussion of test interpretation with radiology: I have reviewed the radiologist's reading. Radiologist Impression: FINDINGS: LUNG BASES: Interlobular septal thickening is noted, left greater than right, which may reflect mild interstitial edema. Scattered mild patchy ground glass opacities are also noted at the left base. LIVER, GALLBLADDER, AND BILIARY TREE: The liver is normal in size, shape, and attenuation. Small hypoattenuating focus in the right hepatic lobe favors a cyst. Mild periportal edema is noted. Gallbladder appears mildly distended with suspected wall thickening versus pericholecystic fluid. No significant biliary ductal dilatation. PANCREAS: There are several irregularly-shaped fluid collections along the course of the pancreas and surrounding regions, new compared to prior and most suspicious for pancreatic pseudocysts. Much of the pancreatic parenchyma is not well defined in this setting, and there is moderate surrounding stranding. The largest collection measures up to 7.3 x 6.1 cm on image 21/97 and is located superior to the proximal pancreas abutting the left hepatic lobe and left margin of the IVC. Additional prominent collections measure up to 4.9 x 4.2 cm on image 32/97 in the region of the pancreatic body, and 3.5 x 3.5 cm on image 24/97 in the region of the pancreatic tail which contains some internal mildly hyperdense material which could represent blood products. Fluid collection in the region of the pancreatic head on image 34/97 measures approximately 4.8 x 2.0 cm. There is also a collection posterior to the distal pancreas and medial to the left adrenal gland on image 22/97 measuring 2.9 x 2.1 cm. SPLEEN: Unremarkable. ADRENAL GLANDS: Unremarkable. KIDNEYS AND URETERS: Bilateral nephrograms are symmetric. No hydronephrosis or obstructing calculus identified. BLADDER: Partially distended with mild diffuse mural prominence, of uncertain clinical significance. GASTROINTESTINAL TRACT: No evidence of bowel obstruction or significant wall thickening. The appendix is unremarkable. Small amount of free fluid in the pelvis. No free air is seen. ABDOMINAL WALL: No significant hernia is appreciated. LYMPH NODES: Scattered mesenteric and retroperitoneal subcentimeter lymph nodes are present, without significant enlargement by size criteria. VASCULAR: There is mass effect on the upper superior mesenteric vein and portosplenic confluence from an adjacent pseudocyst. The course of the splenic vein is difficult to follow in its entirety, and new varices are noted in the left upper quadrant raising concern for splenic vein thrombosis or significant narrowing. PELVIC VISCERA: Unremarkable. OSSEOUS STRUCTURES: Unremarkable. CT/CT abdomen pelvis w IV con IMPRESSION: 1. Multiple fluid collections along the course of the pancreas and surrounding regions, most suspicious for pancreatic pseudocysts. Much of the pancreatic parenchyma is not well defined in this setting, and there is moderate surrounding stranding. One of these collections demonstrates mild internal hyperdense material, which could be indicative of blood products. 2. Mass effect on the upper superior mesenteric vein and portosplenic confluence from an adjacent pseudocyst. The course of the splenic vein is difficult to follow in its entirety, and new varices are noted in the left upper quadrant raising concern for splenic vein thrombosis or significant narrowing. 3. Small amount of free fluid in the pelvis. 4. Mild interstitial edema at the lung bases. Medications Administered Discontinued Medications Generic Name Dose Route Start Last Admin Trade Name Freq PRN Reason Stop Dose Admin Acetaminophen 650 mg 03/31/24 18:59 03/31/24 19:25 Acetaminophen 325 Mg Tablet PO 03/31/24 19:00 650 mg ONCE ONE Administration Lactated Ringer's 1,000 mls @ 999 mls/hr 03/31/24 17:15 03/31/24 19:25 Lr IV 03/31/24 18:15 Infused .Q1H1M [place] Infusion Potassium Chloride 10 meq in 100 mls @ 100 mls/hr 03/31/24 17:05 03/31/24 18:46 Potassium Chloride/H20 IV 03/31/24 18:04 Infused ONCE ONE Infusion Ceftriaxone Sodium 1 gm/ 50 mls @ 100 mls/hr 03/31/24 22:22 03/31/24 23:01 Sodium Chloride IV 03/31/24 22:51 Infused ONCE ONE Infusion Iohexol 85 ml 03/31/24 23:38 03/31/24 23:38 Iohexol 350 Mg/Ml 100 Ml Infus..Btl IV 03/31/24 23:39 85 ml ONCE ONE Administration Ketorolac Tromethamine 30 mg 03/31/24 22:22 03/31/24 22:30 Ketorolac Tromethamine 30 Mg/Ml Vial IVPUSH 03/31/24 22:23 30 mg ONCE ONE Administration Potassium Chloride 60 meq 03/31/24 17:05 03/31/24 17:38 Potassium Chloride Er 20 Meq Tab.Er.Prt PO 03/31/24 17:06 60 meq ONCE ONE Administration Potassium Chloride 60 meq 03/31/24 22:05 03/31/24 22:23 Potassium Chloride Packet 20 Meq Packet PO 03/31/24 22:06 60 meq ONCE ONE Administration Critical Care Time Critical Care Time Critical Care Time: Yes Total Critical Care Time: 60 Attestation: I have personally provided critical care time. Time includes review of lab data, radiology results, discussion with consultants, and monitoring for potential decompensation. Intervention performed as documented. Discharge Plan Discharge Clinical Impression: UTI (urinary tract infection), Acute hypokalemia, Abdominal pain Patient Disposition: Admitted As Inpatient Instructions: Urinary Tract Infection in Women (ED), Potassium Content of Foods List (ED), Hypokalemia (ED) Additional Instructions: Please follow-up with your primary care physician tomorrow. If you have any worsening or new symptoms, please return to the emergency room or call 911 Prescriptions: New cefuroxime axetil 250 mg tablet 250 mg PO BID Qty: 14 0RF No Action multivitamin Tablet 1 tab PO DAILY lisinopril 10 mg tablet 1 tab PO DAILY buprenorphine-naloxone [Suboxone] 8-2 mg film 1 strip sublingual DAILY omeprazole 20 mg Capsule,Delayed Release(Dr/Ec) 20 mg PO DAILY@0630 Qty: 30 0RF potassium chloride 20 mEq tablet extended release 20 meq PO DAILY Qty: 10 0RF magnesium oxide 400 mg magnesium capsule 400 mg PO DAILY Qty: 20 0RF Print Language: Greenlandic
[2024-03-31 16:30] LABS: MANUAL DIFF FLAG NO
[2024-03-31 16:36] LABS: Basophils Percent Auto 0.3 % (0-2); Eosinophils Absolute Auto 0.1 X10*3/uL (0.0-0.4); Eosinophils Percent Auto 0.9 % (0-4); Hematocrit 37.2 % (37.0-47.0); Hemoglobin 13.2 g/dl (12.0-16.0); Imm Gran Abs Auto 0.05 X10*3/uL (0.00-0.03); Imm Gran Pct Auto 0.7 % (0.0-0.4); Lymphocytes Absolute Auto 1.4 X10*3/uL (1.2-4.9); Lymphocytes Percent Auto 18.2 % (20-40); Mean Corpuscular HGB Conc 35.5 g/dl (31.0-35.0); Mean Corpuscular Hemoglobin 35.3 pg (27.0-33.0); Mean Corpuscular Volume 99.5 fL (80.0-98.0); Mean Platelet Volume 8.5 fL (9.4-12.3); Monocytes Absolute Auto 0.7 X10*3/uL (0.1-1.2); Monocytes Percent Auto 9.1 % (2-11); Neutrophils Absolute Auto 5.4 x10*3/uL (2.0-8.3); Neutrophils Percent Auto 70.8 % (45-73); Platelet Count 196 X10*3/uL (160-400); Red Blood Count 3.74 X10*6/uL (4.20-5.50); Red Cell Distribution Width 12.5 % (11.0-16.0); White Blood Count 7.6 X10*3/uL (4.8-10.8)
[2024-03-31 16:51] LABS: COVID-19 Test Negative (Negative); Ethanol < 10 mg/dL; IDNOW Serial# 08D9AD1C
[2024-03-31 16:58] LABS: Alanine Aminotransferase 17 U/L (0-31); Albumin Level 2.7 g/dL (3.5-5.0); Alkaline Phosphatase 186 U/L (39-117); Anion Gap 12 (12-20); Aspartate Amino Transferase 40 U/L (5-31); Bilirubin Direct 0.3 mg/dL (0.0-0.5); Bilirubin Total 0.6 mg/dL (0.0-1.0); Blood Urea Nitrogen 6 mg/dL (9-16); Calcium 8.6 mg/dL (8.4-10.2); Carbon Dioxide 40 mmol/L (22-29); Chloride 88 mmol/L (96-108); Estimated Glomerular Filt Rate > 60; Glucose Random 123 mg/dL (60-115); Lipase 81 U/L (8-78); Magnesium 1.7 mg/dL (1.6-2.6); Potassium 2.3 mmol/L (3.3-5.1); Sodium 138 mmol/L (135-145); Total Protein 5.9 g/dL (6.5-8.0)
[2024-03-31] MEDS: Potassium Chloride ER 20 MEQ TAB.ER.PRT 60 MEQ PO (17:38)
[2024-03-31] MEDS: Lactated Ringers 1,000 ML 999 ML IV (17:40)
[2024-03-31] MEDS: Potassium Chloride/H20 10 MEQ/100 ML PIGGYBACK 100 MEQ IV (17:40)
[2024-03-31 18:07] VITALS: BP 142/101; PULSE 92; RESP 16; TEMP 36.7; O2SAT 100
--- NOTE | 2024-03-31 18:08 | PC.NURSE ---
Pt presents from home, reports generalized ABD pain and nausea starting last night worsening. Denies fevers, diarrhea, CP, SOB. Does report daily alcohol use, sleeve of nips and beer daily, last drink last night. Denies any hx of withdrawal seizures. Alert and oriented, breathing even and unlabored, skin warm and dry. Appears uncomfortable.
[2024-03-31] MEDS: Acetaminophen 325 MG TABLET 650 MG PO (19:25)
[2024-03-31 19:46] VITALS: BP 138/101; PULSE 84; RESP 14; TEMP 36.7; O2SAT 96
[2024-03-31 20:04] LABS: Appearance Urine Turbid; Color Urine Dark Yellow; Glucose Urine UA Negative (Negative); Leukocyte Esterase Urine Large (3+) (Negative); Nitrite Urine Negative (Negative); PH 7.5 (5.0-9.0); Specific Gravity - Urine 1.015 (1.005-1.025); UMIC TRIGGER UACC YES; Urine Blood Negative (Negative); Urine Ketones Negative (Negative); Urine Protein 30 (1+) mg/dL (Neg-Trace)
[2024-03-31 20:09] LABS: Bacteria Urine 4+ (None Seen); Hyaline Casts Urine 0-2 /LPF (0-2); RBC Urine 0-2 /HPF (0-2); UACC Culture Trigger YES; WBC Urine >50 /HPF (0-5)
[2024-03-31 20:25] LABS: Amphetamine Screen Urine Not Detected (Not Detect); Barbiturates, Urine Not Detected (Not Detect); Benzodiazepines Screen Urine Not Detected (Not Detect); Buprenorphine Scr Positive (Not Detect); Cannabinoid Screen Urine Not Detected (Not Detect); Cocaine Screen Urine Not Detected (Not Detect); Fentanyl, urine Not Detected (Not Detect); Methadone Screen, Urine Not Detected (Not Detect); Opiate Screen Urine Not Detected (Not Detect); Oxycodone Screen Urine Not Detected (Not Detect); Phencyclidine Screen Urine Not Detected (Not Detect)
[2024-03-31 21:38] VITALS: BP 123/96; PULSE 85; RESP 12; TEMP 36.7; O2SAT 94
[2024-03-31 22:06] LABS: Anion Gap 12 (12-20); Blood Urea Nitrogen 6 mg/dL (9-16); Calcium 8.2 mg/dL (8.4-10.2); Carbon Dioxide 37 mmol/L (22-29); Chloride 92 mmol/L (96-108); Creatinine Clr Calc Pharmacy 124.4; Estimated Glomerular Filt Rate > 60; Glucose Random 109 mg/dL (60-115); Potassium 2.8 mmol/L (3.3-5.1); Sodium 138 mmol/L (135-145)
[2024-03-31] MEDS: Potassium Chloride Packet 20 MEQ PACKET 60 MEQ PO (22:23)
[2024-03-31] MEDS: Ketorolac Tromethamine 30 MG/ML VIAL IVPUSH (22:30)
[2024-03-31] MEDS: cefTRIAXone sodium 1 GM in 0.9 % Sodium Chloride 50 ML IV (22:31)
[2024-03-31 22:49] LABS: UPreg QC Valid YES; Urine Pregnancy NEGATIVE (NEGATIVE)
[2024-03-31] MEDS: iohexoL 350 MG/ML 100 ML INFUS..BTL 85 ML IV (23:38)
[2024-04-01] VITALS: BP 127/95; PULSE 76; RESP 16; TEMP 36.4; O2SAT 96
[2024-04-01 01:22] LABS: Anion Gap 11 (12-20); Blood Urea Nitrogen 6 mg/dL (9-16); Calcium 8.3 mg/dL (8.4-10.2); Carbon Dioxide 32 mmol/L (22-29); Chloride 96 mmol/L (96-108); Creatinine Clr Calc Pharmacy 122.1; Estimated Glomerular Filt Rate > 60; Glucose Random 105 mg/dL (60-115); Potassium 3.9 mmol/L (3.3-5.1); Sodium 135 mmol/L (135-145)
[2024-04-01 01:57] VITALS: BP 107/81; PULSE 71; RESP 12; TEMP 36.4; O2SAT 96
--- NOTE | 2024-04-01 02:23 | P.HPHOSP_ITS ---
History of Present Illness Date of Service: 04/01/24 Chief Complaint: Abdominal pain This is a 38-year-old female with pertinent history of alcohol use disorder, opioid use disorder who presents to the emergency department for evaluation of abdominal pain. Patient states her symptoms started about a week prior to presentation. She has been having epigastric abdominal pain that has been progressive, nonradiating, intermittent and without any relieving factors. Patient continues to drink alcohol almost daily. Her last drink was on the day of presentation. She denies nausea, vomiting, fever, chills or diarrhea. Does report alcohol withdrawal in the past. No history of alcohol withdrawal seizures. Denies change in color or odor of urine, dysuria, change in urinary frequency or hesitancy. Patient states her abdominal discomfort was worse on the day of presentation which prompted visit. No chest discomfort, palpitations, shortness of breath, changes in bowel habits. In the emergency department, imaging with pancreatic pseudocyst. Patient was initiated on phenobarb protocol Review of Systems 2 Constitutional: Constitutional: Reports no additional constitutional complaints Cardiovascular: Cardiovascular: Reports no additional cardiovascular complaints Respiratory: Respiratory: Reports no additional respiratory complaints Gastrointestinal: Gastrointestinal: Reports abdominal pain Genitourinary: Genitourinary: Reports no additional female genitourinary complaints [facility] Medical History Essential hypertension Opioid use disorder Alcohol use disorder Pertinent family history: No family history of early CAD Social History Household Members: Spouse Housing: House Do you presently have visiting nurse or other home services: No Alcohol intake: current Alcohol intake frequency: 3 or more drinks per day Alcohol type: beer and hard liquor Patient Tobacco Use Status: Former Tobacco user Tobacco use type: Cigarette Cigarette Packs Per Day: 0.5 Cigarettes Per Day: 10.0 Years Smoked: >10 Smoked in Last 30 Days: Yes e-Cigarette/Vaping Use: Former Use Second Hand Smoke Exposure: No Use of substances other than those prescribed or required for medical reasons: No Advance Directives: No Advance Directives Information Provided: No Patient : No service: No Current occupational status: employed and student Meds Allergies Allergy/AdvReac Type Severity Reaction Status Date / Time No Known Allergies Allergy Verified 07/30/24 16:07 Home Medications ?Medication ?Instructions ?Recorded ?Confirmed ?Last Taken ?Type buprenorphine 8 mg-naloxone 2 mg 1 strip sublingual DAILY 05/01/22 02/05/23 02/04/23 History sublingual film (Suboxone) lisinopril 10 mg tablet 1 tab PO DAILY 05/01/22 02/05/23 02/04/23 History multivitamin 1 tab PO DAILY 05/01/22 02/05/23 02/04/23 History Physical Exam 2 Vital Signs and Narrative: Vital Signs: Last Vital Signs Temp 97.6 F 04/01/24 01:57 Pulse 71 04/01/24 01:57 Resp 12 04/01/24 01:57 BP 107/81 04/01/24 01:57 Pulse Ox 96 04/01/24 01:57 O2 Del Method Room Air 04/01/24 01:57 BMI result Body Mass Index 19.7 Middle-aged female lying in bed in no distress Neck supple, no JVD Regular rate and rhythm, S1-S2 heard Regular breath sounds bilaterally, no wheezing or crackles appreciated Abdomen soft nontender, no guarding, no rigidity Patient is awake, alert and oriented to self, place, time and person ; no focal motor deficit Psych: Normal mood No pedal edema Results Labs 03/31/24 16:26 04/01/24 01:01 Labs: Laboratory Results - last 24 hr 03/31/24 03/31/24 03/31/24 16:26 19:55 21:37 MCV 99.5 H MCH 35.3 H MCHC 35.5 H RDW 12.5 Plt Count 196 MPV 8.5 L Immature Gran % (Auto) 0.7 H Neut % (Auto) 70.8 Lymph % (Auto) 18.2 L Jenkins % (Auto) 9.1 Eos % (Auto) 0.9 Baso % (Auto) 0.3 Lymph # (Auto) 1.4 Jenkins # (Auto) 0.7 Eos # (Auto) 0.1 Baso # (Auto) 0.0 Abs Immat Gran (auto) 0.05 H Absolute Neuts (auto) 5.4 Absolute Nucleated RBC 0.000 Nucleated RBC % (auto) 0.0 Anion Gap 12 12 Estim Creat Clear Calc 108.0 124.4 Estimated GFR > 60 > 60 Random Glucose 123 H 109 Calcium 8.6 D 8.2 L Magnesium 1.7 Total Bilirubin 0.6 Direct Bilirubin 0.3 AST 40 H ALT 17 Alkaline Phosphatase 186 H Total Protein 5.9 L Albumin 2.7 L Lipase 81 H Beta HCG, Quant Cancelled Cancelled Urine Color Dark Yellow Urine Appearance Turbid Urine pH 7.5 Ur Specific [place] 1.015 Urine Protein 30 (1+) H Urine Glucose (UA) Negative Urine Ketones Negative Urine Blood Negative Urine Nitrite Negative Ur Leukocyte Esterase Large (3+) H Urine RBC 0-2 Urine WBC >50 H Ur Squamous Epith Cells 3-5 Urine Bacteria 4+ Hyaline Casts 0-2 Urine Test NEGATIVE Urine Opiates Screen Not Detected Ur Buprenorphine Scrn Positive H Ur Oxycodone Screen Not Detected Urine Methadone Screen Not Detected Urine Fentanyl Screen Not Detected Ur Barbiturates Screen Not Detected Ur Phencyclidine Scrn Not Detected Ur Amphetamines Screen Not Detected U Benzodiazepines Scrn Not Detected Urine Cocaine Screen Not Detected U Marijuana (THC) Screen Not Detected Ethyl Alcohol < 10 COVID-19 (STEPHENIE) Negative COVID-19 Clin Com See Note 04/01/24 01:01 MCV MCH MCHC RDW Plt Count MPV Immature Gran % (Auto) Neut % (Auto) Lymph % (Auto) Jenkins % (Auto) Eos % (Auto) Baso % (Auto) Lymph # (Auto) Jenkins # (Auto) Eos # (Auto) Baso # (Auto) Abs Immat Gran (auto) Absolute Neuts (auto) Absolute Nucleated RBC Nucleated RBC % (auto) Anion Gap 11 L Estim Creat Clear Calc 122.1 Estimated GFR > 60 Random Glucose 105 Calcium 8.3 L Magnesium Total Bilirubin Direct Bilirubin AST ALT Alkaline Phosphatase Total Protein Albumin Lipase Beta HCG, Quant Urine Color Urine Appearance Urine pH Ur Specific [place] Urine Protein Urine Glucose (UA) Urine Ketones Urine Blood Urine Nitrite Ur Leukocyte Esterase Urine RBC Urine WBC Ur Squamous Epith Cells Urine Bacteria Hyaline Casts Urine Test Urine Opiates Screen Ur Buprenorphine Scrn Ur Oxycodone Screen Urine Methadone Screen Urine Fentanyl Screen Ur Barbiturates Screen Ur Phencyclidine Scrn Ur Amphetamines Screen U Benzodiazepines Scrn Urine Cocaine Screen U Marijuana (THC) Screen Ethyl Alcohol COVID-19 (STEPHENIE) COVID-19 Clin Com Imaging Radiologist's Impressions: Impressions KUB X-Ray 03/31/24 18:23 IMPRESSION: Unremarkable abdomen examination. Abdomen/Pelvis CT 07/30/24 23:38 IMPRESSION: 1. Multiple fluid collections along the course of the pancreas and surrounding regions, most suspicious for pancreatic pseudocysts. Much of the pancreatic parenchyma is not well defined in this setting, and there is moderate surrounding stranding. One of these collections demonstrates mild internal hyperdense material, which could be indicative of blood products. 2. Mass effect on the upper superior mesenteric vein and portosplenic confluence from an adjacent pseudocyst. The course of the splenic vein is difficult to follow in its entirety, and new varices are noted in the left upper quadrant raising concern for splenic vein thrombosis or significant narrowing. 3. Small amount of free fluid in the pelvis. 4. Mild interstitial edema at the lung bases. Assessment and Plan (1) UTI (urinary tract infection): Status: Acute (2) Abdominal pain: Status: Acute (3) Pancreatic pseudocyst: Status: Acute Plan This is a 38-year-old female with pertinent history of alcohol use disorder, opioid use disorder who presents to the emergency department for evaluation of abdominal pain. #. Pancreatic pseudocysts, symptomatic: Will admit patient with IV opioids p.r.n. for analgesia. Consulting General surgery, appreciate assistance. Continue IV crystalloid resuscitation. Will keep patient NPO #. ?Splenic vein thrombosis: Likely complication of chronic pancreatitis. Monitor for upper GI bleed due to gastric varices. #. Alcohol withdrawal in a patient with alcohol use disorder: Initiated phenobarb protocol in the ER. Initiating thiamine. Consulted Addiction Team #. Hypokalemia: Repleted #. Asymptomatic bacteriuria: Received ceftriaxone in the ER. Defer further antibiotics Med rec pending DVT prophylaxis: Mechanical Full code Admit as inpatient and will require two night minimum hospital stay for evaluation of symptomatic pancreatic cysts, monitoring of electrolytes, need for IV analgesics (as above), which is not possible in a lesser acute setting. Surgical consult pending Quality Stroke Does the patient have a stroke diagnosis?: No VTE Prior VTE?: No VTE Risk Level:: Medical - moderate - high VTE Device Contraindication: N/A - Device Ordered VTE Drug Contraindication: Treatment Not Indicated
[2024-04-01] MEDS: Morphine Sulfate 4 MG/ML CARTRIDGE 2 MG IVPUSH ×3 (02:24→19:37)
[2024-04-01] MEDS: Thiamine HCL 100 MG in 0.9 % Sodium Chloride 100 ML 202 MG IV (02:32)
[2024-04-01] MEDS: Lactated Ringers 1,000 ML 125 ML IVCONT ×3 (03:06→19:39)
[2024-04-01] MEDS: PHENobarbitaL sodium 130 MG/ML IM ONCE 214 MG IM (03:06)
[2024-04-01 05:02] LABS: MANUAL DIFF FLAG NO
[2024-04-01 05:03] LABS: Basophils Percent Auto 0.3 % (0-2); Eosinophils Absolute Auto 0.1 X10*3/uL (0.0-0.4); Eosinophils Percent Auto 1.2 % (0-4); Hematocrit 35.3 % (37.0-47.0); Hemoglobin 12.5 g/dl (12.0-16.0); Imm Gran Abs Auto 0.04 X10*3/uL (0.00-0.03); Imm Gran Pct Auto 0.6 % (0.0-0.4); Lymphocytes Absolute Auto 1.6 X10*3/uL (1.2-4.9); Lymphocytes Percent Auto 23.6 % (20-40); Mean Corpuscular HGB Conc 35.4 g/dl (31.0-35.0); Mean Corpuscular Hemoglobin 36.2 pg (27.0-33.0); Mean Corpuscular Volume 102.3 fL (80.0-98.0); Mean Platelet Volume 8.6 fL (9.4-12.3); Monocytes Absolute Auto 0.6 X10*3/uL (0.1-1.2); Monocytes Percent Auto 8.6 % (2-11); Neutrophils Absolute Auto 4.3 x10*3/uL (2.0-8.3); Neutrophils Percent Auto 65.7 % (45-73); Platelet Count 161 X10*3/uL (160-400); Red Blood Count 3.45 X10*6/uL (4.20-5.50); Red Cell Distribution Width 13.1 % (11.0-16.0); White Blood Count 6.6 X10*3/uL (4.8-10.8)
[2024-04-01 05:16] LABS: Anion Gap 14 (12-20); Blood Urea Nitrogen 6 mg/dL (9-16); Calcium 8.4 mg/dL (8.4-10.2); Carbon Dioxide 31 mmol/L (22-29); Chloride 97 mmol/L (96-108); Creatinine Clr Calc Pharmacy 115.6; Estimated Glomerular Filt Rate > 60; Glucose Random 112 mg/dL (60-115); Potassium 3.5 mmol/L (3.3-5.1); Sodium 138 mmol/L (135-145)
[2024-04-01] MEDS: PHENobarbitaL sodium 130 MG/ML VIAL IM Q3Hx2 161 MG IM ×2 (06:01→09:05)
--- NOTE | 2024-04-01 08:05 | PHA.MEDREC ---
Pharmacy Consult ? Medication Reconciliation Pharmacy has completed the medication reconciliation. Spoke to patient at bedside, able to name medications unprompted.
[2024-04-01] MEDS: Thiamine HCL 100 MG in 0.9 % Sodium Chloride 100 ML 200 MG IV (09:07)
--- NOTE | 2024-04-01 09:12 | PM.CNGS ---
History of Present Illness Consult details Consult date: 04/01/24 <Christiana Reyes PA-C Last Filed: 04/01/24 09:28> Requesting physician: Rhianna Kate <MENA Busby Last Filed: 04/01/24 09:28> Narrative: This is a 38-year-old female with PMH of alcohol use disorder, opioid use disorder who presented to the ED for evaluation of abdominal pain. She reports her pain started two days ago in her upper abdomen. It is severe in nature. The pain was associated with nausea and vomiting. Patient continues to drink alcohol almost daily. She has been admitted prior for alcohol induced pancreatitis, last admission here in 2021. Work up in the ED included CBC, BMP, LFTs which were significant for multiple electrolyte abnormalities, AST of [address] lip[address] of [address]. [address] scan abd pelvis showed moderate peripancreatic stranding, several large pancreatic pseudocysts with collection in the pancreatic tail containing hyperdense material. <Christiana Reyes PA-C Last Filed: 04/01/24 09:28> Review of Systems Constitutional: Constitutional: Denies chills and Denies fever(s) <MENA Busby Last Filed: 04/01/24 09:28> ENT: Denies dizziness <MENA Busby Last Filed: 04/01/24 09:28> Cardiovascular: Cardiovascular: Denies chest pain and Denies dyspnea <MENA Busby Last Filed: 04/01/24 09:28> Respiratory: Respiratory: Denies dyspnea <MENA Busby Filed: 04/01/24 09:28> Gastrointestinal: Gastrointestinal: Reports as per HPI <MENA Busby Last Filed: 04/01/24 09:28> Integumentary/Breasts: Skin/Breast: Denies rash and Denies jaundice <MENA Busby Last Filed: 04/01/24 09:28> Neurologic: Denies dizziness <MENA Busby Last Filed: 04/01/24 09:28> [facility], [facility] Past Medical History Medical History: Medical History Essential hypertension Opioid use disorder Alcohol use disorder <Christiana Reyes PA-C - Last Filed: 04/01/24 09:28> Social History Social History: Social History Household Members: Spouse Housing: House Do you presently have visiting nurse or other home services: No Alcohol intake: current Alcohol intake frequency: 3 or more drinks per day Alcohol type: beer and hard liquor Patient Tobacco Use Status: Current everyday Tobacco user Tobacco use type: Cigarette Cigarette Packs Per Day: 0.5 Cigarettes Per Day: 10.0 Years Smoked: >10 Smoked in Last 30 Days: Yes e-Cigarette/Vaping Use: Former Use Second Hand Smoke Exposure: No Use of substances other than those prescribed or required for medical reasons: No Advance Directives: No Advance Directives Information Provided: No Nutrition Risks: No Nutritional Risk Patient : No service: No Current occupational status: employed and student <Christiana Reyes PA-C - Last Filed: 04/01/24 09:28> Meds Allergies/Adverse reactions: Allergies Allergy/AdvReac Type Severity Reaction Status Date / Time No Known Allergies Allergy Verified 03/31/24 16:07 <MENA Busby Last Filed: 04/01/24 09:28> Active Medications: Current Medications Acetaminophen (Acetaminophen 325 Mg Tablet) 650 mg PO Q6H PRN PRN Reason: Pain, Mild (Pain Scale 1-3), fever or headache Calcium Carbonate (Calcium Carbonate 750 Mg Tab.Chew) 750 mg PO Q4H PRN PRN Reason: Heartburn Thiamine HCl 100 mg/ Sodium (Chloride) 101 mls @ 202 mls/hr IV DAILY [facility] Last Infusion: 04/01/24 03:11 Dose: Infused Lactated Ringer's (Lr) 1,000 mls @ 125 mls/hr IVCONT .Q8H [facility] Last Admin: 04/01/24 03:06 Dose: 125 mls/hr Magnesium Hydroxide (Milk Of Magnesia 30 Ml Oral.Susp) 30 ml PO DAILY PRN PRN Reason: Constipation Melatonin (Melatonin 3 Mg Tablet) 6 mg PO BEDTIME PRN PRN Reason: Insomnia Morphine Sulfate (Morphine Sulfate 4 Mg/Ml Cartridge) 2 mg IVPUSH Q4H PRN; Protocol PRN Reason: Pain, Severe (Pain Scale 7-10) Ondansetron HCl (Ondansetron Hcl 4 Mg/2 Ml Vial) 4 mg IVPUSH Q8H PRN PRN Reason: Nausea and Vomiting Pharmacy Consult (Consult Rx Etoh Phenob Im/Po) 1 each MISCELLANE ONCE PRN; Protocol PRN Reason: Consult order Phenobarbital (Phenobarbital 15 Mg Tablet) 45 mg PO BID [facility]; Protocol Stop: 04/03/24 09:01 Phenobarbital (Phenobarbital 30 Mg Tablet) 30 mg PO BID [facility]; Protocol Stop: 04/05/24 09:01 Phenobarbital (Phenobarbital 15 Mg Tablet) 15 mg PO DAILY [facility]; Protocol Stop: 04/07/24 09:01 Sodium Chloride (0.9 % Sodium Chloride Flush 3 Ml Syringe) 3 ml IVFLUSH QSHIFT [facility] <Christiana Reyes PA-C - Last Filed: 04/01/24 09:28> Home medications: Home Medications ?Medication ?Instructions ?Recorded ?Confirmed ?Last Taken ?Type buprenorphine 8 mg-naloxone 2 mg 1 strip sublingual DAILY 05/01/22 04/01/24 03/31/24 History sublingual film (Suboxone) multivitamin 1 tab PO DAILY 05/01/22 04/01/24 03/31/24 History lisinopril 20 mg tablet 20 mg PO DAILY 04/01/24 04/01/24 03/31/24 History <Christiana Reyes PA-C - Last Filed: 04/01/24 09:28> Physical Exam Vital Signs: Vital Signs: Last Vital Signs Temp 97.6 F 04/01/24 01:57 Pulse 71 04/01/24 01:57 Resp 12 04/01/24 01:57 BP 107/81 04/01/24 01:57 Pulse Ox 96 04/01/24 01:57 O2 Del Method Room Air 04/01/24 01:57 BMI result Body Mass Index 19.7 <MENA Busby Last Filed: 04/01/24 09:28> Const: General: alert and other (uncomfortable appearing) <MENA Busby Last Filed: 04/01/24 09:28> Nutritional Appearance: average body habitus and well nourished <Christiana TellesJOHAN medinaGena Negro Last Filed: 04/01/24 09:28> Orientation/consciousness: patient oriented x3 <Christiana TellesJOHAN medinaGena Negro Last Filed: 04/01/24 09:28> HEENT: Head: Yes normocephalic and Yes atraumatic <Christiana TellesJOHAN medinaGena Negro Last Filed: 04/01/24 09:28> Eyes: Sclerae: sclerae normal (nonicteric) <Christiana TellesLILIANA medinaShellie Negro Last Filed: 04/01/24 09:28> Resp: Effort & Inspection: normal respiratory effort <Christiana TellesLILIANA medinaShellie Negro Last Filed: 04/01/24 09:28> Cardio: Rate: regular rate <Christiana TellesLILIANA medinaShellie Negro Last Filed: 04/01/24 09:28> GI: Inspection: Yes normal to inspection, No abdominal wall ecchymosis (no ecchymosis of the flanks or umbilicus ), No distended and No scar <Christiana TellesLILIANA medinaShellie Negro Last Filed: 04/01/24 09:28> Palpation (GI): Soft to palpation, Tenderness to palpation present (GI) (marked epigastric tenderness) and no guarding <Christiana TellesJOHAN medinaGena Negro Last Filed: 04/01/24 09:28> Skin: General skin exam: no rashes or lesions noted and no jaundice <Christiana JOHAN ReyesGena Negro Last Filed: 04/01/24 09:28> Neuro: General: patient oriented x3 and moves all extremities <JOHAN BusbyGena Negro Last Filed: 04/01/24 09:28> Results Labs Result diagrams: 04/01/24 04:40 04/01/24 04:40 <Christiana Reyes PA-C Marky Last Filed: 04/01/24 09:28> Labs: Abnormal lab results 03/31/24 03/31/24 03/31/24 Range/Units 16:26 19:55 21:37 RBC 3.74 L D (4.20-5.50) X10*6/uL Hct (37.0-47.0) % MCV 99.5 H (80.0-98.0) fL MCH 35.3 H (27.0-33.0) pg MCHC 35.5 H (31.0-35.0) g/dl MPV 8.5 L (9.4-12.3) fL Immature Gran % (Auto) 0.7 H (0.0-0.4) % Lymph % (Auto) 18.2 L (20-40) % Abs Immat Gran (auto) 0.05 H (0.00-0.03) X10*3/uL Potassium 2.3 L* 2.8 L* D (3.3-5.1) mmol/L Chloride 88 L 92 L (96-108) mmol/L Carbon Dioxide 40 H* D 37 H (22-29) mmol/L Anion Gap (12-20) BUN 6 L 6 L (9-16) mg/dL Random Glucose 123 H (60-115) mg/dL Calcium 8.2 L (8.4-10.2) mg/dL AST 40 H (5-31) U/L Alkaline Phosphatase 186 H (39-117) U/L Total Protein 5.9 L (6.5-8.0) g/dL Albumin 2.7 L (3.5-5.0) g/dL Lipase 81 H (8-78) U/L Urine Protein 30 (1+) H (Neg-Trace) mg/dL Ur Leukocyte Esterase Large (3+) H (Negative) Urine WBC >50 H (0-5) /HPF Ur Buprenorphine Scrn Positive H (Not Detect) ng/mL 04/01/24 04/01/24 Range/Units 01:01 04:40 RBC 3.45 L (4.20-5.50) X10*6/uL Hct 35.3 L (37.0-47.0) % MCV 102.3 H (80.0-98.0) fL MCH 36.2 H (27.0-33.0) pg MCHC 35.4 H (31.0-35.0) g/dl MPV 8.6 L (9.4-12.3) fL Immature Gran % (Auto) 0.6 H (0.0-0.4) % Lymph % (Auto) (20-40) % Abs Immat Gran (auto) 0.04 H (0.00-0.03) X10*3/uL Potassium (3.3-5.1) mmol/L Chloride (96-108) mmol/L Carbon Dioxide 32 H 31 H (22-29) mmol/L Anion Gap 11 L (12-20) BUN 6 L 6 L (9-16) mg/dL Random Glucose (60-115) mg/dL Calcium 8.3 L (8.4-10.2) mg/dL AST (5-31) U/L Alkaline Phosphatase (39-117) U/L Total Protein (6.5-8.0) g/dL Albumin (3.5-5.0) g/dL Lipase (8-78) U/L Urine Protein (Neg-Trace) mg/dL Ur Leukocyte Esterase (Negative) Urine WBC (0-5) /HPF Ur Buprenorphine Scrn (Not Detect) ng/mL Short CBC 03/31/24 04/01/24 Range/Units 16:26 04:40 WBC 7.6 6.6 (4.8-10.8) X10*3/uL Hgb 13.2 D 12.5 (12.0-16.0) g/dl Hct 37.2 D 35.3 L (37.0-47.0) % Plt Count 196 161 (160-400) X10*3/uL BMP 03/31/24 03/31/24 04/01/24 16:26 21:37 01:01 Sodium 138 138 135 Potassium 2.3 L* 2.8 L* D 3.9 D Chloride 88 L 92 L 96 Carbon Dioxide 40 H* D 37 H 32 H BUN 6 L 6 L 6 L Creatinine 0.61 0.53 0.54 Calcium 8.6 D 8.2 L 8.3 L 04/01/24 04:40 Sodium 138 Potassium 3.5 Chloride 97 Carbon Dioxide 31 H BUN 6 L Creatinine 0.57 Calcium 8.4 Liver Function 03/31/24 Range/Units 16:26 Total Bilirubin 0.6 (0.0-1.0) mg/dL Direct Bilirubin 0.3 (0.0-0.5) mg/dL AST 40 H (5-31) U/L ALT 17 (0-31) U/L Alkaline Phosphatase 186 H (39-117) U/L Albumin 2.7 L (3.5-5.0) g/dL Urine 03/31/24 Range/Units 19:55 Urine Color Dark Yellow Urine Appearance Turbid Urine pH 7.5 (5.0-9.0) Ur Specific [place] 1.015 (1.005-1.025) Urine Protein 30 (1+) H (Neg-Trace) mg/dL Urine Glucose (UA) Negative (Negative) mg/dL Urine Test NEGATIVE (NEGATIVE) All other labs normal. <Christiana Reyes PA-C - Last Filed: 04/01/24 09:28> Imaging Abdomen CT scan report/results: report reviewed and image reviewed <Christiana Reyes PA-C - Last Filed: 04/01/24 09:28> Assessment and Plan (1) Pancreatic pseudocyst: Status: Acute <Christiana Reyes PA-C - Last Filed: 04/01/24 09:28> This is a 38-year-old female with PMH of alcohol use disorder, history of alcohol induced pancreatitis presenting with acute onset epigastric pain with elevated lipase, CT scan demonstrating peripancreatic fat stranding and several large pancreatic pseudocysts with one concerning for possible hemorrhagic pseudocyst. Discussed with WAN Ford who recommended CTA abdomen to r/o aneurysm. Patient will likely need transfer to tertiary facility for further management of the pancreatic pseudocysts including possible endoscopic drainage. Discussed with patient. <MENA Busby Last Filed: 04/01/24 09:28> This is a 38-year-old female with PMH of alcohol use disorder, history of alcohol induced pancreatitis presenting with acute onset epigastric pain with elevated lipase, CT scan demonstrating peripancreatic fat stranding and several large pancreatic pseudocysts with one concerning for possible hemorrhagic pseudocyst. Discussed with WAN Ford who recommended CTA abdomen to r/o aneurysm. Patient will likely need transfer to tertiary facility for further management of the pancreatic pseudocysts including possible endoscopic drainage. Discussed with patient. Patient seen and examined in the ED. Agree with the above assessment and plan. Patient presents with severe abdominal pain with a previous history of ETOH associated pancreatitis. Workup with CT abd and pelvis with contrast revealed multiple apparent pseudocysts involving the head, body and tail of the pancreas. Area of contrast in the tail is concerning for bleeding into the cyst. The cyst is also compressing the IVC. I do not see evidence of gastric obstruction. Discussed with IR (Jeanmarie Shore), GI and Dr. Miranda. Management of this complex patient would be very difficult here at [facility] and ideally would be managed with endoscopic ultrasound guided transluminal drainage. Of more concern is the evidence of IV contrast in the tail pseudocyst. I would recommend transfer to a tertiary care center for definitive care. <Brady Fried MD - Last Filed: 04/01/24 09:56> Procedures Date of Service Date of Service: 04/01/24 <Christiana Reyes PA-C - Last Filed: 04/01/24 09:28> 04/01/24 <Brady Fried MD - Last Filed: 04/01/24 09:56>
[2024-04-01 09:15] VITALS: BP 143/113; PULSE 78; RESP 18; TEMP 36.7; O2SAT 98
--- NOTE | 2024-04-01 10:40 | PC.NURSE ---
pt sleeping soundly, respirations even, unlabored. no signs of distress. New liter of LR hung.
--- NOTE | 2024-04-01 11:19 | PM.EVENT ---
Event Note Date of Service: 04/01/24 Event Note: Day hospitalist update S: epigastric pain improved no N/V 2 prior episodes of pancreatitis withdrawals well-controlled O: Temp Pulse Resp BP Pulse Ox O2 Del Method 98.0 F 78 18 143/113 H 98 Room Air 04/01/24 09:15 04/01/24 09:15 04/01/24 09:15 04/01/24 09:15 04/01/24 09:15 04/01/24 09:15 Gen: disheveled HEENT: sclera anicteric, moist mucus membranes Neck: supple Lungs: clear to auscultation bilaterally Heart: regular rate and rhythm, no murmurs Abd: soft, epigastric tenderness non-distended Ext: no edema Skin: warm/well-perfused Neuro: alert and oriented x3, no focal findings Psych: appropriate affect Laboratory Results - last 24 hr 03/31/24 03/31/24 03/31/24 16:26 19:55 21:37 WBC 7.6 RBC 3.74 L D Hgb 13.2 D Hct 37.2 D MCV 99.5 H MCH 35.3 H MCHC 35.5 H RDW 12.5 Plt Count 196 MPV 8.5 L Immature Gran % (Auto) 0.7 H Neut % (Auto) 70.8 Lymph % (Auto) 18.2 L [place] % (Auto) 9.1 Eos % (Auto) 0.9 Baso % (Auto) 0.3 Lymph # (Auto) 1.4 [place] # (Auto) 0.7 Eos # (Auto) 0.1 Baso # (Auto) 0.0 Abs Immat Gran (auto) 0.05 H Absolute Neuts (auto) 5.4 Absolute Nucleated RBC 0.000 Nucleated RBC % (auto) 0.0 Sodium 138 138 Potassium 2.3 L* 2.8 L* D Chloride 88 L 92 L Carbon Dioxide 40 H* D 37 H Anion Gap 12 12 BUN 6 L 6 L Creatinine 0.61 0.53 Estim Creat Clear Calc 108.0 124.4 Estimated GFR > 60 > 60 Random Glucose 123 H 109 Calcium 8.6 D 8.2 L Magnesium 1.7 Total Bilirubin 0.6 Direct Bilirubin 0.3 AST 40 H ALT 17 Alkaline Phosphatase 186 H Total Protein 5.9 L Albumin 2.7 L Lipase 81 H Beta HCG, Quant Cancelled Cancelled Urine Color Dark Yellow Urine Appearance Turbid Urine pH 7.5 Ur Specific [place] 1.015 Urine Protein 30 (1+) H Urine Glucose (UA) Negative Urine Ketones Negative Urine Blood Negative Urine Nitrite Negative Ur Leukocyte Esterase Large (3+) H Urine RBC 0-2 Urine WBC >50 H Ur Squamous Epith Cells 3-5 Urine Bacteria 4+ Hyaline Casts 0-2 Urine Test NEGATIVE Urine Opiates Screen Not Detected Ur Buprenorphine Scrn Positive H Ur Oxycodone Screen Not Detected Urine Methadone Screen Not Detected Urine Fentanyl Screen Not Detected Ur Barbiturates Screen Not Detected Ur Phencyclidine Scrn Not Detected Ur Amphetamines Screen Not Detected U Benzodiazepines Scrn Not Detected Urine Cocaine Screen Not Detected U Marijuana (THC) Screen Not Detected Ethyl Alcohol < 10 COVID-19 ([facility]IE) Negative COVID-19 Clin Com See Note 04/01/24 04/01/24 01:01 04:40 WBC 6.6 RBC 3.45 L Hgb 12.5 Hct 35.3 L MCV 102.3 H MCH 36.2 H MCHC 35.4 H RDW 13.1 Plt Count 161 MPV 8.6 L Immature Gran % (Auto) 0.6 H Neut % (Auto) 65.7 Lymph % (Auto) 23.6 [place] % (Auto) 8.6 Eos % (Auto) 1.2 Baso % (Auto) 0.3 Lymph # (Auto) 1.6 [place] # (Auto) 0.6 Eos # (Auto) 0.1 Baso # (Auto) 0.0 Abs Immat Gran (auto) 0.04 H Absolute Neuts (auto) 4.3 Absolute Nucleated RBC 0.000 Nucleated RBC % (auto) 0.0 Sodium 135 138 Potassium 3.9 D 3.5 Chloride 96 97 Carbon Dioxide 32 H 31 H Anion Gap 11 L 14 BUN 6 L 6 L Creatinine 0.54 0.57 Estim Creat Clear Calc 122.1 115.6 Estimated GFR > 60 > 60 Random Glucose 105 112 Calcium 8.3 L 8.4 Magnesium Total Bilirubin Direct Bilirubin AST ALT Alkaline Phosphatase Total Protein Albumin Lipase Beta HCG, Quant Urine Color Urine Appearance Urine pH Ur Specific [place] Urine Protein Urine Glucose (UA) Urine Ketones Urine Blood Urine Nitrite Ur Leukocyte Esterase Urine RBC Urine WBC Ur Squamous Epith Cells Urine Bacteria Hyaline Casts Urine Test Urine Opiates Screen Ur Buprenorphine Scrn Ur Oxycodone Screen Urine Methadone Screen Urine Fentanyl Screen Ur Barbiturates Screen Ur Phencyclidine Scrn Ur Amphetamines Screen U Benzodiazepines Scrn Urine Cocaine Screen U Marijuana (THC) Screen Ethyl Alcohol COVID-19 ([facility]IE) COVID-19 Clin Com Impressions KUB X-Ray 03/31/24 18:23 IMPRESSION: Unremarkable abdomen examination. Abdomen/Pelvis CT 03/31/24 23:38 IMPRESSION: 1. Multiple fluid collections along the course of the pancreas and surrounding regions, most suspicious for pancreatic pseudocysts. Much of the pancreatic parenchyma is not well defined in this setting, and there is moderate surrounding stranding. One of these collections demonstrates mild internal hyperdense material, which could be indicative of blood products. 2. Mass effect on the upper superior mesenteric vein and portosplenic confluence from an adjacent pseudocyst. The course of the splenic vein is difficult to follow in its entirety, and new varices are noted in the left upper quadrant raising concern for splenic vein thrombosis or significant narrowing. 3. Small amount of free fluid in the pelvis. 4. Mild interstitial edema at the lung bases. A/P: d1 38yo F with AUD + OUD presenting with abdominal pain, found to have multiple pancreatic pseudocysts with concern of bleeding in one of the cysts, mass effect on SMV with question of splenic vein thrombosis pancreatic pseudocyst splenic vein thrombosis pancreatitis, likely chronic - Gen Surg consulted. Per IR, no drain possible; may require EUS. Will consult Gastroenterology and obtain CT angio of abdomen to assess for bleeding into a pseudocyst. NPO, IV fluids, prn morphine hypoK - repleted AUD - Addiction consult, phenobarbital taper, thiamine, vitamins OUD - Suboxone HTN - lisinopril VTE ppx - SCDs; hold heparin dispo - TBD In my clinical judgment, the patient requires continued inpatient hospitalization for the following reasons: IV fluids + IV analgesics, pancreatitis workup Time Spent With Patient Time: Total time managing care of this patient today ____ minutes.
[2024-04-01] MEDS: Buprenorphine/Naloxone 8/2 mg FILM 1 FILM SUBLINGUAL (11:39)
[2024-04-01] MEDS: iohexoL 350 MG/ML 100 ML INFUS..BTL IV (13:26)
[2024-04-01 14:51] VITALS: BP 127/100; PULSE 81; RESP 18; TEMP 36.7; O2SAT 95
[2024-04-01 15:40] VITALS: BP 132/97; PULSE 83; RESP 18; TEMP 36.1; O2SAT 97
[2024-04-01 15:43] VITALS: BMI 18.6
[2024-04-01 16:02] LABS: Hematocrit 35.9 % (37.0-47.0); Hemoglobin 12.7 g/dl (12.0-16.0)
[2024-04-01 16:12] LABS: Prothrombin Time 12.4 SEC (11.1-13.3)
--- NOTE | 2024-04-01 16:24 | PM.EVENT ---
Event Note Date of Service: 04/01/24 Event Note: Discussed with [facility] Dr Lowry re: need for transfer for drainage of pseudocyst. In the presence of possible bleeding and the absence of evidence of infection, EUS-guided drainage is not necessary. They recommend treating as for pancreatitis with IV fluids/bowel rest/IV opioids and following up as outpatient. Time Spent With Patient Time: Total time managing care of this patient today ____ minutes.
--- NOTE | 2024-04-01 16:26 | CONS_ITS ---
DATE OF SERVICE: 04/01/2024 REFERRING PHYSICIAN: Tin Miranda MD REASON FOR CONSULTATION: Pancreatic pseudocysts. HISTORY OF PRESENT ILLNESS: The patient is a 38-year-old woman with a history of alcohol abuse, who was admitted to the hospital after presenting to the emergency room yesterday with complaints of abdominal pain and bloating. She has had symptoms of malaise and general weakness for about 1 week and had abdominal bloating occur over 2 days prior to admission. She has a history of alcohol abuse, usually drinking 10 individual size alcohol bottles daily and her last drink was the day before admission. She also had some intermittent vomiting that was nonbloody without diarrhea. She denies fevers or chills. In the emergency department, she was evaluated with imaging, which was reviewed. This is interpreted as showing multiple fluid collections along the pancreas consistent with pancreatic pseudocysts and 1 was noted to have mild internal hyperdense material thought possibly related to blood products. Another CT scan has been obtained with CT angiography for further evaluation. She was admitted to the hospital and seen in consultation by General Surgery and discussion was undertaken with Interventional Radiology as well because of her symptomatic pseudocysts. It was recommended that she be transferred to a tertiary care center for continued care. PAST MEDICAL HISTORY: 1. Alcohol abuse with pancreatitis and now pancreatic pseudocysts. 2. Opioid dependence. 3. Hypertension. CURRENT MEDICATIONS: Her current medication list is reviewed in the chart. ALLERGIES: THERE ARE NONE REPORTED. FAMILY HISTORY: This is reviewed with the patient and is noncontributory. SOCIAL HISTORY: Alcohol use is as above. She denies any opiate use and is maintained on Suboxone. REVIEW OF SYSTEMS: SKIN: No pruritus. HEENT: Negative. CARDIOPULMONARY: She denies shortness of breath or chest pain. GASTROINTESTINAL: As above. GENITOURINARY: Negative. NEUROPSYCHIATRIC: Negative. PHYSICAL EXAMINATION: GENERAL: Shows a pleasant female, lying comfortably in bed. VITAL SIGNS: Reviewed in electronic medical record and are stable. SKIN: Anicteric. HEENT: Shows no scleral icterus. NECK: Without lymphadenopathy or thyromegaly. LUNGS: Clear. HEART: Shows regular rate and rhythm. S1, S2. No murmur. ABDOMEN: Soft. There is some upper abdominal distention. Bowel sounds are present. No organomegaly is noted. There is some mild epigastric tenderness to palpation. EXTREMITIES: Show no edema. LABORATORY DATA AND IMAGING STUDIES: Reviewed. IMPRESSION: Pancreatic pseudocysts. She has a followup CT pending for further evaluation of the abnormalities described on the initial CT scan. Further treatment of her pancreatic pseudocyst should be considered at a tertiary care center with endoscopic ultrasound capability. Thanks for asking me to see her. I will follow her in the hospital with you. MD TASHI Fleming/BILLY / [id number]
--- NOTE | 2024-04-01 18:45 | P.DS_ITS ---
DS: Providers Provider Date of Service: 04/01/24 Date of admission: 04/01/24 02:22 Date of discharge: 04/01/24 Primary care physician: MARYBEL Matos Consults: 04/01/24 02:23 Consult to General Surgery Routine Consulting Provider: [facility] [place] [facility] Reason for consultation: pancreatic pseudocysts 04/01/24 02:25 Addiction Medicine Routine Consulting Provider: Addiction Covering Reason for consultation: alcohol use disorder Has provider been notified: Yes 04/01/24 07:31 Consult to Gastroenterology Routine Consulting Provider: Cheikh Morrow Reason for consultation: Pancreatic pseudocysts, symptomatic DS: Diagnosis Discharge Diagnosis (1) Pancreatic pseudocyst: Status: Acute (2) Chronic pancreatitis: Status: Acute (3) Splenic vein thrombosis: Status: Acute (4) Alcohol use disorder: Status: Acute (5) Acute hypokalemia: Status: Acute (6) Alcohol withdrawal: Status: Acute DS: Summary Hospital Course Hospital Course: From the history and physical by the admitting hospitalist, Apolinar Kate MD, 04/01/24: This is a 38-year-old female with pertinent history of alcohol use disorder, opioid use disorder who presents to the emergency department for evaluation of abdominal pain. Patient states her symptoms started about a week prior to presentation. She has been having epigastric abdominal pain that has been progressive, nonradiating, intermittent and without any relieving factors. Patient continues to drink alcohol almost daily. Her last drink was on the day of presentation. She denies nausea, vomiting, fever, chills or diarrhea. Does report alcohol withdrawal in the past. No history of alcohol withdrawal seizures. Denies change in color or odor of urine, dysuria, change in urinary frequency or hesitancy. Patient states her abdominal discomfort was worse on the day of presentation which prompted visit. No chest discomfort, palpitations, shortness of breath, changes in bowel habits. In the emergency department, imaging with pancreatic pseudocyst. Patient was initiated on phenobarb protocol 38yo F with AUD + OUD presenting with abdominal pain and found to have multiple pancreatic pseudocysts as large as 7.3 cm with concern of bleeding in one of the cysts in the tail of the pancreas and mass effect on the SMV from another cyst with question of splenic vein thrombosis. She was admitted to the medical- surgical floor with General Surgery and Gastroenterology consultations. She was made NPO and given IV Ringer's lactate and IV morphine. Suboxone was continued. She was treated with phenobarbital taper for alcohol withdrawal [currently on 45 mg PO bid x 4 doses, then 30 mg PO bid x 4 doses, then 15 mg PO daily x 2 doses]. Potassium was 2.3 on admission and repleted to 3.5. She had persistent epigastric and periumbilical pain. No signs of infection. A CT angiogram of the abdomen showed stable bleeding in the pancreatic tail cyst but possible new bleeding adjacent to the phrenic artery in a cyst near the left diaphragmatic audelia. The specialists recommended transfer to a tertiary care center for possible EUS-guided drainage. I reached out to [facility], which declined to take the patient. I reached out to [facility] and the patient was accepted at [facility] in [place], [place]. Time Attestation Discharge Coordination Time (in mins): 35 Quality: Safe Use of Opioids Does Pt have an Active Cancer Diagnosis on the Problem List?: No Quality: Stroke Does the patient have a stroke diagnosis?: No Physical Exam Vital Signs: Vital Signs: Last Vital Signs Temp 97 F 04/01/24 15:40 Pulse 83 04/01/24 15:40 Resp 18 04/01/24 15:40 BP 132/97 H 04/01/24 15:40 Pulse Ox 97 04/01/24 15:40 O2 Del Method Room Air 04/01/24 15:40 BMI result Body Mass Index 18.6 Gen: in no acute distress HEENT: sclera anicteric, moist mucus membranes Neck: supple Lungs: clear to auscultation bilaterally Heart: regular rate and rhythm, no murmurs Abd: soft with periumbilical tenderness, non-distended Ext: no edema Skin: warm/well-perfused Neuro: alert and oriented x3, no focal findings Psych: appropriate affect DS: Data Data Completed and Pending Completed studies during hospitalization [Text1]: Laboratory Results WBC 6.6 X10*3/uL (4.8-10.8) 04/01/24 04:40 RBC 3.45 X10*6/uL (4.20-5.50) L 04/01/24 04:40 Hgb 12.7 g/dl (12.0-16.0) 04/01/24 15:39 Hct 35.9 % (37.0-47.0) L 04/01/24 15:39 MCV 102.3 fL (80.0-98.0) H 04/01/24 04:40 MCH 36.2 pg (27.0-33.0) H 04/01/24 04:40 MCHC 35.4 g/dl (31.0-35.0) H 04/01/24 04:40 RDW 13.1 % (11.0-16.0) 04/01/24 04:40 Plt Count 161 X10*3/uL (160-400) 04/01/24 04:40 MPV 8.6 fL (9.4-12.3) L 04/01/24 04:40 Immature Gran % (Auto) 0.6 % (0.0-0.4) H 04/01/24 04:40 Neut % (Auto) 65.7 % (45-73) 04/01/24 04:40 Lymph % (Auto) 23.6 % (20-40) 04/01/24 04:40 Casey % (Auto) 8.6 % (2-11) 04/01/24 04:40 Eos % (Auto) 1.2 % (0-4) 04/01/24 04:40 Baso % (Auto) 0.3 % (0-2) 04/01/24 04:40 Lymph # (Auto) 1.6 X10*3/uL (1.2-4.9) 04/01/24 04:40 Casey # (Auto) 0.6 X10*3/uL (0.1-1.2) 04/01/24 04:40 Eos # (Auto) 0.1 X10*3/uL (0.0-0.4) 04/01/24 04:40 Baso # (Auto) 0.0 X10*3/uL (0.0-0.2) 04/01/24 04:40 Abs Immat Gran (auto) 0.04 X10*3/uL (0.00-0.03) H 04/01/24 04:40 Absolute Neuts (auto) 4.3 x10*3/uL (2.0-8.3) 04/01/24 04:40 Absolute Nucleated RBC 0.000 X10*3/uL (0.0-0.012) 04/01/24 04:40 Nucleated RBC % (auto) 0.0 /100WBC (0.0-0.2) 04/01/24 04:40 PT 12.4 SEC (11.1-13.3) 04/01/24 15:39 INR 1.0 (0.9-1.1) 04/01/24 15:39 Sodium 138 mmol/L (135-145) 04/01/24 04:40 Potassium 3.5 mmol/L (3.3-5.1) 04/01/24 04:40 Chloride 97 mmol/L (96-108) 04/01/24 04:40 Carbon Dioxide 31 mmol/L (22-29) H 04/01/24 04:40 Anion Gap 14 (12-20) 04/01/24 04:40 BUN 6 mg/dL (9-16) L 04/01/24 04:40 Creatinine 0.57 mg/dL (0.5-1.4) 04/01/24 04:40 Estim Creat Clear Calc 115.6 04/01/24 04:40 Estimated GFR > 60 04/01/24 04:40 Random Glucose 112 mg/dL (60-115) 04/01/24 04:40 Calcium 8.4 mg/dL (8.4-10.2) 04/01/24 04:40 Magnesium 1.7 mg/dL (1.6-2.6) 03/31/24 16:26 Total Bilirubin 0.6 mg/dL (0.0-1.0) 03/31/24 16:26 Direct Bilirubin 0.3 mg/dL (0.0-0.5) 03/31/24 16:26 AST 40 U/L (5-31) H 03/31/24 16:26 ALT 17 U/L (0-31) 03/31/24 16:26 Alkaline Phosphatase 186 U/L (39-117) H 03/31/24 16:26 Total Protein 5.9 g/dL (6.5-8.0) L 03/31/24 16:26 Albumin 2.7 g/dL (3.5-5.0) L 03/31/24 16:26 Lipase 81 U/L (8-78) H 03/31/24 16:26 Beta HCG, Quant Cancelled 03/31/24 21:37 Urine Color Dark Yellow 03/31/24 19:55 Urine Appearance Turbid 03/31/24 19:55 Urine pH 7.5 (5.0-9.0) 03/31/24 19:55 Ur Specific [place] 1.015 (1.005-1.025) 03/31/24 19:55 Urine Protein 30 (1+) mg/dL (Neg-Trace) H 03/31/24 19:55 Urine Glucose (UA) Negative mg/dL (Negative) 03/31/24 19:55 Urine Ketones Negative mg/dL (Negative) 03/31/24 19:55 Urine Blood Negative (Negative) 03/31/24 19:55 Urine Nitrite Negative (Negative) 03/31/24 19:55 Ur Leukocyte Esterase Large (3+) (Negative) H 03/31/24 19:55 Urine RBC 0-2 /HPF (0-2) 03/31/24 19:55 Urine WBC >50 /HPF (0-5) H 03/31/24 19:55 Ur Squamous Epith Cells 3-5 /HPF (0-2) 03/31/24 19:55 Urine Bacteria 4+ (None Seen) 03/31/24 19:55 Hyaline Casts 0-2 /LPF (0-2) 03/31/24 19:55 Urine Test NEGATIVE (NEGATIVE) 03/31/24 19:55 Urine Opiates Screen Not Detected (Not Detect) 03/31/24 19:55 Ur Buprenorphine Scrn Positive ng/mL (Not Detect) H 03/31/24 19:55 Ur Oxycodone Screen Not Detected ng/mL (Not Detect) 03/31/24 19:55 Urine Methadone Screen Not Detected ng/mL (Not Detect) 03/31/24 19:55 Urine Fentanyl Screen Not Detected (Not Detect) 03/31/24 19:55 Ur Barbiturates Screen Not Detected (Not Detect) 03/31/24 19:55 Ur Phencyclidine Scrn Not Detected (Not Detect) 03/31/24 19:55 Ur Amphetamines Screen Not Detected (Not Detect) 03/31/24 19:55 U Benzodiazepines Scrn Not Detected (Not Detect) 03/31/24 19:55 Urine Cocaine Screen Not Detected (Not Detect) 03/31/24 19:55 U Marijuana (THC) Screen Not Detected (Not Detect) 03/31/24 19:55 Ethyl Alcohol < 10 mg/dL 03/31/24 16:26 COVID-19 (STEPHENIE) Negative (Negative) 03/31/24 16:26 COVID-19 Clin Com See Note 03/31/24 16:26 Impressions KUB X-Ray 03/31/24 18:23 IMPRESSION: Unremarkable abdomen examination. Abdomen/Pelvis CT 03/31/24 23:38 IMPRESSION: 1. Multiple fluid collections along the course of the pancreas and surrounding regions, most suspicious for pancreatic pseudocysts. Much of the pancreatic parenchyma is not well defined in this setting, and there is moderate surrounding stranding. One of these collections demonstrates mild internal hyperdense material, which could be indicative of blood products. 2. Mass effect on the upper superior mesenteric vein and portosplenic confluence from an adjacent pseudocyst. The course of the splenic vein is difficult to follow in its entirety, and new varices are noted in the left upper quadrant raising concern for splenic vein thrombosis or significant narrowing. 3. Small amount of free fluid in the pelvis. 4. Mild interstitial edema at the lung bases. Abdomen CTA 04/01/24 13:39 IMPRESSION: 1. There is a pseudocyst along the audelia of the left hemidiaphragm which is stable in size but now contains new hyperdensity consistent with acute blood products versus contrast extravasation. Imaging was performed in the arterial phase only without associated noncontrast or delayed phase images to further delineate this hyperdensity. Of note, the left phrenic artery is passing directly adjacent to this pseudocyst and could be the source of hemorrhage. No evidence of a pseudoaneurysm off the phrenic artery. 2. Pseudocyst near the tail of the pancreas is unchanged in size and contains hyperdensity consistent with some residual blood products. No active extravasation of contrast is seen. 3. Small amount of perihepatic ascites is unchanged. Small amount of pelvic ascites is slightly increased compared to the prior exam. 4. Increasing patchy consolidation in the bilateral lower lobes. This critical result was discussed with Tin Miranda MD at 1515 on 04/01/2024 and it was ascertained that the content and urgency of the report was understood at the time of direct communication. Discharge Plan Discharge Anticipated Discharge Date/Time: 04/01/24 18:42 Patient Disposition: Xfer Acute Care Hospital Discharge Diagnosis: pancreatic pseudocysts with possible hemorrhage alcohol use disorder with withdrawal syndrome Referrals: Jalyn Ojeda FNP [Primary Care Provider] - 1 Week Discharge Medications: New acetaminophen 325 mg Tablet 650 mg PO Q6H PRN (Reason: Pain, Mild (Pain Scale 1-3), fever or headache) Qty: 1 0RF ondansetron HCl (PF) 4 mg/2 mL Solution 4 mg IVPUSH Q8H PRN (Reason: Nausea And Vomiting) Qty: 1 0RF morphine 4 mg/mL Syringe 2 mg IVPUSH Q4H PRN (Reason: Pain, Severe (Pain Scale 7-10)) Qty: 1 0RF Protocol: Hold for RR < HOLD and contact provider for RR < (bpm): 12 Rx Instructions: Partial Fill upon patient request. Consult Rx Etoh Phenob Im/Po 1 ea miscellaneous ONCE Qty: 1 0RF Continued multivitamin Tablet 1 tab PO DAILY buprenorphine-naloxone [Suboxone] 8-2 mg film 1 strip sublingual DAILY lisinopril 20 mg tablet 20 mg PO DAILY Diet: NPO Activity on Discharge: As tolerated Stand Alone Forms: Patient Portal Discharge page Print Language: Romanian Care Plan Goals: definitive treatment of pancreatitic pseudocysts sobriety Health Concerns: pancreatic pseudocysts with possible hemorrhage alcohol use disorder with withdrawal syndrome Plan of Treatment: transfer to tertiary care center for GI/EUS consultation Assessment: See Discharge Summary. Patient Instructions: Urinary Tract Infection in Women (ED), Potassium Content of Foods List (ED), Hypokalemia (ED)
[2024-04-01 19:48] VITALS: BP 132/100; PULSE 81; RESP 16; TEMP 36.3; O2SAT 97
[2024-04-01] MEDS: PHENobarbitaL 15 MG TABLET 45 MG PO (20:26)
== END 2024-04-01 21:41 | disposition short-term general hospital (02) | DRG 282 ==
LOC: HO.ED 04-01 02:20 → HO.EDOVER 04-01 02:26 → HO.S3 04-01 14:31
PROVIDERS: Physician Assistant; Admitting Provider Student in an Organized Health Care Education/Training Program; Emergency Provider Emergency Medicine; PCP Nurse Practitioner Family; Visit Provider Family Medicine
DX: K86.3 Pseudocyst of pancreas (principal); I82.890 Acute embolism and thrombosis of other specified veins; K86.0 Alcohol-induced chronic pancreatitis; E87.6 Hypokalemia; F11.20 Opioid dependence, uncomplicated; F17.210 Nicotine dependence, cigarettes, uncomplicated; F10.139 Alcohol abuse with withdrawal, unspecified; I10 Essential (primary) hypertension; Z20.822 Contact with and (suspected) exposure to COVID-19; Z71.6 Tobacco abuse counseling; Z79.899 Other long term (current) drug therapy
CPT/HCPCS: 36415; 74018; 74175; 74177; 80048; 80076; 80307; 81001; 81025; 83690; 83735; 85014; 85018; 85025; 85610; 87086; 87088; 87186; 87635; 99285; J0696; J1885; J2270; J2560; J3411; J3480; J7120; Q9967

== ENCOUNTER → 2024-04-01 02:22 | Outpatient (BNV) | payer MEDICAID, SELFPAY | PROVIDERS: Admitting Provider Student in an Organized Health Care Education/Training Program; Emergency Provider Emergency Medicine; PCP Nurse Practitioner Family; Visit Provider Student in an Organized Health Care Education/Training Program | DX: K86.3 Pseudocyst of pancreas (principal); K86.1 Other chronic pancreatitis; I82.890 Acute embolism and thrombosis of other specified veins; F10.939 Alcohol use, unspecified with withdrawal, unspecified; E87.6 Hypokalemia; N39.0 Urinary tract infection, site not specified | CPT/HCPCS: 99236; 99499 ==

== ENCOUNTER → 2024-04-01 02:22 | Outpatient (BNV) | payer MEDICAID, SELFPAY | PROVIDERS: Admitting Provider Student in an Organized Health Care Education/Training Program; Emergency Provider Emergency Medicine; PCP Nurse Practitioner Family; Visit Provider Physician Assistant Surgical | DX: K86.3 Pseudocyst of pancreas (principal) | CPT/HCPCS: 99222 ==

== ENCOUNTER 2025-06-01 20:54 | Emergency (ER) | payer MEDICAID, SELFPAY ==
[2025-06-01 21:04] VITALS: BP 182/115; PULSE 81; RESP 16; TEMP 36.9; O2SAT 99; BMI 23.3
--- OUTSIDE RECORDS SUMMARY | 2025-06-01 21:13 | XMS_ITS | Clinical Summary ---
Author Organization Formerly [facility] Address [address] [place] [address] Care Team Providers Care Head Start Coordinator Name Role Phone Jalyn Ojeda MARYBEL Primary Care Provider + Allergies No known active allergies Medications morphine (ROXANOL) 10 mg/5 mL solutionIndicati ons:Acute abdominal pain,Pancreatic pseudocyst Take 5 mL (10 mg total) by mouth every 4 (four) hours as needed for severe pain. Max Daily Amount: 60 mg 100 mL 04/03/2024 Active lisinopril (PRINIVIL,ZeSTRI L) 20 MG tabletIndication s:Pancreatic pseudocyst Take 1 tablet (20 mg total) by mouth daily. 30 tablet 04/05/2024 Active Active Problems Problem Noted Date Diagnosed Date Epigastric pain 04/02/2024 Social History Tobacco Use Types Packs/Day Years Used Date Smoking Tobacco: Every Day Cigarettes Smokeless Tobacco: Never Tobacco Cessation:Ready to Q uit: No; Counseling Given: Not Answered Alcohol Use Standard Drinks/Week Comments Yes 0 (1 standard drink = 0.6 oz pur e alcohol) [facility] Utilities Answer Date Recorded In the past 12 months has [employer], gas, oil, or water [employer] threatened to shut off services in your home? No 04/02/2024 AUDIT-C Answer Date Recorded Q1: How often do you have a drink containing alc ohol? 2-3 times a week 04/02/2024 Q2: How many drinks containi ng alcohol do you have on a typical day when you are drinking? 3 or 4 04/02/2024 Q3: How often do you have si x or more drinks on one occasion? Weekly 04/02/2024 Overall Financial Resource Strain (CARDIA) Answe r Date Recorded How hard is it for you to pa y for the very basics like food, housing, medical care, and heating? Not hard at all 04/02/2024 PHQ-2 Answer Date Recorded PHQ-2 Total Score 0 04/01/2024 Hunger Vital Sign Answer Date Recorded Within the past 12 months, y ou worried that your food would run out before you got the money to buy more. Never true 04/02/20 24 Within the past 12 months, t he food you bought just didn't last and you didn't have money to get more. Never true 04/02/2024 PRAPARE - Transportation Answer Date Re corded In the past 12 months, has l ack of transportation kept you from medical appointments or from getting medications? No 09/2023 In the past 12 months, has l ack of transportation kept you from meetings, work, or from getting things needed for daily living? No 04/02/2024 Housing Stability Vital Sign Answer Tevin e Recorded In the last 12 months, was t here a time when you were not able to pay the mortgage or rent on time? No 04/02/2024 In the last 12 months, how many places have you lived? 1 04/02/2024 In the last 12 months, was t here a time when you did not have a steady place to sleep or slept in a custodial (including now)? No 04/02/2024 Comments Unknown Sex and Gender Information Value Date Recorded Sex Assigned at Female 04/02/2024 6:22 PM EDT Legal Sex Female 5:15 PM EDT Gender Identity Not on file Sexual Orientation Not on file Last Filed Vital Signs Vital Sign Reading Time Taken Comments Blood Pressure 151/113 04/04/2024 8:15 AM EDT Pulse 86 04/04/2024 8:15 AM EDT Temperature 36.7 C (98 F) 04/04/2024 8:15 AM EDT Respiratory Rate 18 04/04/2024 8:15 AM EDT Oxygen Saturation 95% 04/04/2024 8:15 AM EDT Inhaled Oxygen Concentration - - Weight 54.2 kg (119 lb 7.8 oz) 04/02/2024 3:00 P M EDT Height - - Body Mass Index - - Plan of Treatment Health Maintenance Due Date Last Done Comments Hepatitis C Virus Screening 1987 HIV Screening 2000 DTaP/Tdap/Td Vaccines (1 - Tdap) 2006 Hepatitis B Vaccines (1 of 3 - 19+ 3-dose series) 06/02 Pneumococcal Vaccine: Pediat christa (0-5 Years) and At-Risk Patients (6 to 49 Years) (1 of 2 - PCV) 2006 Pap Smear (Ages 21-65) 2008 Influenza Vaccine 04/02/2025 COVID-19 Vaccine (1 - 2023- season) 2025 HPV Vaccines (No Doses Required) Completed Insurance [facility] Advance Directives * Full Code (Latest Code Status on File) Date Activated Date Inactivated Comments 04/02/2024 1:03 AM Care Teams Head Start Coordinator Relationship Specialty Start Date End Date Jalyn Ojeda FNP [address] [place] [id number] PCP - General Family Medicine 04/02/24
--- OUTSIDE RECORDS SUMMARY | 2025-06-01 21:13 | XMS_ITS ---
Author Name [facility] Organization Unknown Results Test Name/Text Value Interpretation Date Range Source MCV RBC Auto 106.0 fL Above high normal 04/04/2024 80 - 100 [facility] Hct VFr Bld Auto 33.3 % Below low normal 04/04/2024 35 - 47 [facility] WBC num Bld Auto 5.4 Thou/uL Normal 04/04/2024 4 - 11 [facility] RDW RBC Auto-Rto 13.2 % Normal 04/04/2024 11.5 - 14.5 [facility] RBC num Bld Auto 3.13 Mil/uL Below low normal 04/04/2024 4 - 5.4 [facility] Platelet num Bld Auto 156.0 Thou/uL Normal 04/04/2024 150 - 450 [facility] Hgb Bld-mCnc 11.3 g/dL Below low normal 04/04/2024 11.7 - 15 .7 H[facility]CT MCH RBC Qn Auto 36.1 pg Above high normal 04/04/2024 26 - 34 [facility] PMV Bld Auto 9.2 fL Normal 04/04/2024 7.5 - 12.5 H[facility]CT MCHC RBC Auto-mCnc 33.9 g/dL Normal 04/04/2024 30 - 36 [facility]CT Potassium SerPl-sCnc 3.7 mmol/L Normal 04/03/2024 3.4 - 4 .5 [facility] MCV RBC Auto 107.0 fL Above high normal 04/03/2024 80 - 100 [facility] RDW RBC Auto-Rto 12.9 % Normal 04/03/2024 11.5 - 14.5 [facility] Platelet num Bld Auto 162.0 Thou/uL Normal 04/03/2024 150 - 450 [facility]CT Hct VFr Bld Auto 34.3 % Below low normal 04/03/2024 35 - 47 H[facility]CT Hgb Bld-mCnc 11.3 g/dL Below low normal 04/03/2024 11.7 - 15 .7 H[facility]CT MCH RBC Qn Auto 35.2 pg Above high normal 04/03/2024 26 - 34 H[facility]CT PMV Bld Auto 9.1 fL Normal 04/03/2024 7.5 - 12.5 H[facility]CT WBC num Bld Auto 6.4 Thou/uL Normal 04/03/2024 4 - 11 [facility] RBC num Bld Auto 3.21 Mil/uL Below low normal 04/03/2024 4 - 5.4 H[facility]CT MCHC RBC Auto-mCnc 32.9 g/dL Normal 04/03/2024 30 - 36 H[facility]CT Calcium SerPl-mCnc 8.2 mg/dL Below low normal 04/02/2024 8.7 - 10.5 HHCCT Prot SerPl-mCnc 4.8 g/dL Below low normal 04/02/2024 5.7 - 8.2 H[facility]CT Anion Gap Bld-sCnc 4.0 Below low normal 04/02/2024 5 - 15 H[facility]CT Globulin Ser Calc-mCnc 2.3 g/dL Normal 04/02/2024 1.5 - 3.9 H[facility]CT Bilirub SerPl-mCnc 0.6 mg/dL Normal 04/02/2024 0.3 - 1.2 HHCCT CO2 SerPl-sCnc 34.0 mmol/L Above high normal 04/02/2024 20 - 31 H[facility]CT BUN SerPl-mCnc 8.0 mg/dL Below low normal 04/02/2024 9 - 23 H[facility]CT Chloride SerPl-sCnc 102.0 mmol/L Normal 04/02/2024 98 - 1 07 HHCCT AST SerPl-cCnc 40.0 U/L Above high normal 04/02/2024 - 34 H[facility]CT Glucose SerPl-mCnc 82.0 mg/dL Normal 04/02/2024 74 - 106 [facility]CT BUN/Creat SerPl 16.0 Ratio Normal 04/02/2024 10 - 25 HH CCT GFR/BSA.pred SerPlBld [id number] >90.0 Normal 04/02/2024 59 - HHCCT ALT SerPl-cCnc 13.0 U/L Normal 04/02/2024 7 - 35 HHCC T Sodium SerPl-sCnc 140.0 mmol/L Normal 04/02/2024 136 - 14 5 HHCCT Potassium SerPl-sCnc 3.2 mmol/L Below low normal 04/02/2024 3.4 - 4.5 HHCCT ALP SerPl-cCnc 164.0 U/L Above high normal 04/02/2024 32 - 1 22 HHCCT Creat SerPl-mCnc 0.5 mg/dL Below low normal 04/02/2024 0.6 - 1 H[facility]CT Albumin/Glob SerPl 1.1 Ratio Below low normal 04/02/2024 1.5 - 2.5 HHCCT Albumin SerPl-mCnc 2.5 g/dL Below low normal 04/02/2024 3.4 - 4.8 HHCCT Magnesium SerPl-mCnc 1.5 mg/dL Below low normal 04/02/2024 1 .6 - 2.6 H[facility]CT Phosphate SerPl-mCnc 3.7 mg/dL Normal 04/02/2024 2.4 - 5. 1 HHCCT Monocytes/leuk NFr Bld Auto 8.5 % Normal 04/02/2024 H[facility]CT Neutrophils/leuk NFr Bld Auto 65.8 % Normal 04/02/2024 H[facility]CT Eosinophil num Bld Auto 0.14 Thou/uL Normal 04/02/2024 0 - 0.7 H[facility]CT Imm Granulocytes num Bld Auto 0.06 Thou/uL Normal 04/02/2024 0 - 0.1 HHCCT MCV RBC Auto 105.0 fL Above high normal 04/02/2024 80 - 100 H[facility]CT Lymphocytes num Bld Auto 1.42 Thou/uL Below low normal 04/02/2024 1.5 - 4.5 HHCCT MCHC RBC Auto-mCnc 34.2 g/dL Normal 04/02/2024 30 - 36 HHCCT Hct VFr Bld Auto 35.1 % Normal 04/02/2024 35 - 47 HH CCT Platelet num Bld Auto 156.0 Thou/uL Normal 04/02/2024 150 - 450 HHCCT Hgb Bld-mCnc 12.0 g/dL Normal 04/02/2024 11.7 - 15.7 HHCC T WBC num Bld Auto 6.4 Thou/uL Normal 04/02/2024 4 - 11 H[facility]CT Imm Granulocytes/leuk NFr Bld Auto 0.9 % Normal 04/02/2024 H[facility]CT RDW RBC Auto-Rto 12.9 % Normal 04/02/2024 11.5 - 14.5 HHCCT Basophils/leuk NFr Bld Auto 0.6 % Normal 04/02/2024 HHCCT Neutrophils num Bld Auto 4.23 Thou/uL Normal 04/02/2024 2 - 7.5 H[facility]CT Basophils num Bld Auto 0.04 Thou/uL Normal 04/02/2024 0 - 0.2 H[facility]CT PMV Bld Auto 8.9 fL Normal 04/02/2024 7.5 - 12.5 H[facility]CT RBC num Bld Auto 3.34 Mil/uL Below low normal 04/02/2024 4 - 5.4 HHCCT MCH RBC Qn Auto 35.9 pg Above high normal 04/02/2024 26 - 34 H[facility]CT Lymphocytes/leuk NFr Bld Auto 22.0 % Normal 04/02/2024 HHCCT Monocytes num Bld Auto 0.55 Thou/uL Normal 04/02/2024 0.2 - 1.5 HHCCT Eosinophil/leuk NFr Bld Auto 2.2 % Normal 04/02/2024 HHCCT Encounters Encounter Type Encounter Reason Primary Diagnosis Location Date Ambulatory [facility] 03/11/2025 Inpatient Unspecified abdominal pain Unspecified abdominal pain [facility] 04/02/2024 Care Team Organization Name Specialty Phone Email Start Date End Da te [facility] 03/11 [facility] 04/02/2024 11/18/2024 [facility] 04/02/2024
--- NOTE | 2025-06-01 21:32 | PC.NURSE ---
Assumed care of pt, presents with Suicidal ideation with attempt to harm self with gun, pt states that she is going through a divorce and her is leaving her, denies HI, has hx of depression but hernandez not take any medication for it. aaox4, ambulatory with steady gait, pt able to provide urine sample, pending provider eval
[2025-06-01 22:13] LABS: Hematocrit 38.6 % (37.0-47.0); Hemoglobin 14.2 g/dl (12.0-16.0); Imm Gran Abs Auto 0.06 X10*3/uL (0.00-0.03); Imm Gran Pct Auto 0.5 % (0.0-0.4); Lymphocytes Absolute Auto 2.4 X10*3/uL (1.2-4.9); MANUAL DIFF FLAG NO; Mean Corpuscular HGB Conc 36.8 g/dl (31.0-35.0); Mean Corpuscular Hemoglobin 31.3 pg (27.0-33.0); Mean Corpuscular Volume 85.2 fL (80.0-98.0); NRBC Abs Auto 0.000 X10*3/uL (0.0-0.012); NRBC Pct Auto 0.0 /100WBC (0.0-0.2); Platelet Count 285 X10*3/uL (160-400); Red Blood Count 4.53 X10*6/uL (4.20-5.50); White Blood Count 12.0 X10*3/uL (4.8-10.8)
[2025-06-01 22:14] LABS: Appearance Urine Cloudy; Glucose Urine UA 100 mg/dL (Negative); PH 6.5 (5.0-9.0); Specific Gravity - Urine 1.015 (1.005-1.025); UMIC TRIGGER UACC YES
[2025-06-01 22:16] LABS: UACC Culture Trigger YES
--- NOTE | 2025-06-01 22:21 | ED.GENADULT ---
HPI - General Adult General Chief complaint: Psychiatric Symptoms Stated complaint: SI Time Seen by Provider: 06/01/25 21:30 Source: patient Limitations: no limitations History of Present Illness ED Provider: Mary Bear PA-C HPI narrative: 39-year-old female with a history of opiate use disorder, alcohol use disorder, prior alcohol withdrawal, chronic pancreatitis with a pancreatic pseudocyst, splenic vein thrombosis who presents with SI. Patient has been having thoughts of self-harm over the past 2 days, she states she just found out that her is leaving her. Patient has a plan for self-harm, she states she will ?attempt to shoot herself with a gun?. The patient does have access to firearms. Patient denies prior thoughts of self-harm or prior attempts. The patient does not see a counselor or therapist. She currently denies use of alcohol or illicit substances. Related Data Home Medications ?Medication ?Instructions ?Recorded ?Confirmed hydromorphone 4 mg tablet 4 mg PO QID PRN Pain 06/02/25 06/02/25 lisinopril 20 mg tablet 20 mg PO DAILY 06/02/25 06/02/25 metformin 500 mg tablet,extended 1,000 mg PO DAILY 06/02/25 06/02/25 release 24 hr Allergies Allergy/AdvReac Type Severity Reaction Status Date / Time No Known Allergies Allergy Verified 06/01/25 21:06 Review of Systems Review of Systems: Yes all other systems are reviewed and are negative Constitutional: Constitutional: Denies fatigue and Denies fever(s) Cardiovascular: Cardiovascular: Denies chest pain and Denies dyspnea Respiratory: Respiratory: Denies dyspnea Gastrointestinal: Gastrointestinal: Denies abdominal pain Psychiatric: Psychiatric: Reports suicidal ideation Endocrine: Endocrine: Denies fatigue PMFSH Past Medical History Attestation statement: The following information was validated with the patient. Medical History Essential hypertension Opioid use disorder Alcohol use disorder Social History Social History Household Members: Significant Other Housing: House Do you presently have visiting nurse or other home services: No Unable to assess alcohol history related to: Refusing to respond Alcohol intake: current Alcohol intake frequency: 3 or more drinks per day Alcohol type: beer and hard liquor Patient Tobacco Use Status: Current everyday Tobacco user Tobacco use type: Cigarette Cigarette Packs Per Day: 1 Cigarettes Per Day: 20.0 Years Smoked: >10 e-Cigarette/Vaping Use: Former Use Second Hand Smoke Exposure: No Use of substances other than those prescribed or required for medical reasons: Unknown Advance Directives: No Advance Directives Information Provided: No Do you have a plan to hurt others: No Plan Patient : No service: No Current occupational status: employed and student Physical Exam ED Vital Signs: Vital Signs - 24 hr 06/01/25 21:04 06/01/25 23:03 06/01/25 23:25 Temperature 98.4 F 98.4 F Pulse Rate 81 81 66 Respiratory Rate 16 16 16 Blood Pressure 182/115 H 182/115 H 164/106 H Pulse Oximetry 99 99 97 Oxygen Delivery Method Room Air Room Air Room Air 06/01/25 23:27 06/02/25 01:56 Temperature 98.7 F Pulse Rate 66 Respiratory Rate 15 Blood Pressure 164/106 H 160/107 H Pulse Oximetry 100 Oxygen Delivery Method Room Air BMI result Body Mass Index 23.3 Const Other: Awake, has a blanket over her head Orientation/consciousness: patient oriented x3 Resp Effort & Inspection: normal respiratory effort Cardio Other: Normal peripheral perfusion Skin Other: Warm dry no rash Neuro General: patient oriented x3, gait normal, no focal motor deficits and CN's II-XI intact bilaterally Psych Other: Cooperative, flat affect, not offering great detail Course Reevaluation(s) Reevaluation #1: Time: 04:21 Date: 06/02/25 Provider: LILIANA Chin Patient in physician observation for psychiatric evaluation.? No acute events reported overnight. No current complaints. VS stable.? Patient is in bed search status/pending CARE team evaluation. Will continue to monitor. Spoke with the care team, the patient we will be made an inpatient bed search, she is a section 12 at this point. Medications Administered Discontinued Medications Generic Name Dose Route Start Last Admin Trade Name Freq PRN Reason Stop Dose Admin Cephalexin HCl 500 mg 06/01/25 23:21 06/01/25 23:27 Cephalexin 500 Mg Capsule PO 06/01/25 23:22 500 mg ONCE ONE Administration Cephalexin HCl 500 mg 06/02/25 09:00 06/02/25 10:12 Cephalexin 500 Mg Capsule PO 06/08/25 04:22 500 mg BID GARFIELD Administration Hydromorphone HCl 4 mg 06/02/25 03:36 06/02/25 13:03 Hydromorphone Hcl 2 Mg Tablet PO 4 mg QID PRN Administration Pain Potassium Chloride 10 meq in 100 mls @ 100 mls/hr 06/01/25 23:00 06/02/25 04:24 Potassium Chloride/H20 IV 06/02/25 02:59 Infused Q1H GARFIELD Infusion Magnesium Sulfate/Dextrose 1 gm in 100 mls @ 300 mls/hr 06/01/25 22:48 06/01/25 23:55 Magnesium Sulfate/D5w IV 06/01/25 23:07 Infused ONCE ONE Infusion Lisinopril 20 mg 06/01/25 22:29 06/01/25 23:27 Lisinopril 20 Mg Tablet PO 06/01/25 22:30 20 mg ONCE ONE Administration Protocol Lisinopril 20 mg 06/02/25 09:00 06/02/25 10:11 Lisinopril 20 Mg Tablet PO 20 mg DAILY GARFIELD Administration Protocol Metformin HCl 1,000 mg 06/02/25 09:00 06/02/25 10:12 Metformin Hcl Er 500 Mg Tab.Er.24h PO 1,000 mg DAILY GARFIELD Administration Potassium Chloride 40 meq 06/01/25 22:47 06/01/25 23:26 Potassium Chloride Er 20 Meq Tab.Er.Prt PO 06/01/25 22:48 40 meq ONCE ONE Administration Medical Decision Making Medical Decision Making MDM Narrative: 39-year-old female with a history of opiate use disorder, alcohol use disorder, prior alcohol withdrawal, chronic pancreatitis with a pancreatic pseudocyst, splenic vein thrombosis who presents with SI. Patient has been having thoughts of self-harm over the past 2 days, she states she just found out that her is leaving her. Patient has a plan for self-harm, she states she will ?attempt to shoot herself with a gun?. The patient does have access to firearms. Patient denies prior thoughts of self-harm or prior attempts. The patient does not see a counselor or therapist. She currently denies use of alcohol or illicit substances. Problem: Opiate use disorder, alcohol use disorder History: Per patient I have considered the following differential diagnoses: SI, HI, decompensated psychiatric illness, drug/alcohol intoxication Plan: Screening labs including serum ethanol and drug screen have been obtained, we will place a consult with the care team. The patient has a concerning story, she has new psychosocial stressors, she has access to firearms, her plan is to ?shoot herself?. I foresee her being a bed search. I have independently reviewed the following tests: Labs: Slight leukocytosis, not anemic, potassium 2.9, repeat potassium 4.3, magnesium 2 no additional electrolyte abnormalities, has a urinary tract infection drug screen positive for opiates, oxycodone, fentanyl, ethanol less than 10 Differential Diagnosis Differential Diagnoses: The differential diagnosis associated with the presentation includes See medical decision-making Admission/Observation Consideration of admission/observation: Escalation of care including admission/observation considered Potential inpatient psych admission Consult Healthcare Provider Management of the patient was discussed with: Behavioral Health Provider Lab Data MDM Lab Attestation statement: I reviewed the patient's lab results. 06/01/25 22:03 06/02/25 03:54 Labs: Lab Results 06/01/25 06/01/25 06/02/25 Range/Units 22:03 22:04 03:54 WBC 12.0 H (4.8-10.8) X10*3/uL RBC 4.53 D (4.20-5.50) X10*6/uL Hgb 14.2 (12.0-16.0) g/dl Hct 38.6 (37.0-47.0) % MCV 85.2 (80.0-98.0) fL MCH 31.3 (27.0-33.0) pg MCHC 36.8 H (31.0-35.0) g/dl RDW 12.4 (11.0-16.0) % Plt Count 285 D (160-400) X10*3/uL MPV 8.8 L (9.4-12.3) fL Immature Gran % (Auto) 0.5 H (0.0-0.4) % Neut % (Auto) 75.0 H (45-73) % Lymph % (Auto) 19.6 L (20-40) % [place] % (Auto) 4.6 (2-11) % Eos % (Auto) 0.1 (0-4) % Baso % (Auto) 0.2 (0-2) % Lymph # (Auto) 2.4 (1.2-4.9) X10*3/uL [place] # (Auto) 0.6 (0.1-1.2) X10*3/uL Eos # (Auto) 0.0 (0.0-0.4) X10*3/uL Baso # (Auto) 0.0 (0.0-0.2) X10*3/uL Abs Immat Gran (auto) 0.06 H (0.00-0.03) X10*3/uL Absolute Neuts (auto) 9.0 H (2.0-8.3) x10*3/uL Absolute Nucleated RBC 0.000 (0.0-0.012) X10*3/uL Nucleated RBC % (auto) 0.0 (0.0-0.2) /100WBC Sodium 141 (135-145) mmol/L Potassium 2.9 L* 4.3 D (3.3-5.1) mmol/L Chloride 104 (96-108) mmol/L Carbon Dioxide 28 (22-29) mmol/L Anion Gap 12 (12-20) BUN 10 (9-16) mg/dL Creatinine 0.83 (0.5-1.4) mg/dL Estim Creat Clear Calc 83.5 Estimated GFR > 60 Random Glucose 228 H (60-115) mg/dL Calcium 9.2 D (8.4-10.2) mg/dL Magnesium 2.0 (1.6-2.6) mg/dL Total Bilirubin 0.5 (0.0-1.0) mg/dL AST 18 (5-31) U/L ALT 11 (0-31) U/L Alkaline Phosphatase 105 (39-117) U/L Total Protein 6.8 (6.5-8.0) g/dL Albumin 4.4 (3.5-5.0) g/dL Urine Color Yellow Urine Appearance Cloudy Urine pH 6.5 (5.0-9.0) Ur Specific [place] 1.015 (1.005-1.025) Urine Protein 30 (1+) H (Neg-Trace) mg/dL Urine Glucose (UA) 100 H (Negative) mg/dL Urine Ketones Negative (Negative) mg/dL Urine Blood Trace H (Negative) Urine Nitrite Positive H (Negative) Ur Leukocyte Esterase Large (3+) H (Negative) Urine RBC 0-2 (0-2) /HPF Urine WBC >50 H (0-5) /HPF Ur Squamous Epith Cells 6-10 (0-2) /HPF Urine Bacteria 4+ (None Seen) Hyaline Casts 3-5 (0-2) /LPF Urine Test NEGATIVE (NEGATIVE) Salicylates < 5.0 L (15-30) mg/dL Urine Opiates Screen POSITIVE H (Not Detect) Ur Buprenorphine Scrn Not Detected (Not Detect) ng/mL Ur Oxycodone Screen Positive H (Not Detect) ng/mL Urine Methadone Screen Not Detected (Not Detect) ng/mL Urine Fentanyl Screen POSITIVE H (Not Detect) Acetaminophen < 3 (<30) mcg/mL Ur Barbiturates Screen Not Detected (Not Detect) Ur Phencyclidine Scrn Not Detected (Not Detect) Ur Amphetamines Screen Not Detected (Not Detect) U Benzodiazepines Scrn Not Detected (Not Detect) Urine Cocaine Screen Not Detected (Not Detect) U Marijuana (THC) Screen Not Detected (Not Detect) Ethyl Alcohol < 10 mg/dL Discharge Plan Discharge Clinical Impression: Suicidal ideation, Urinary tract infection Patient Disposition: Xfer Psychiatric Hosp Transfer Details: TO: [facility], [address] [place] [address] DR TSANG ACCEPTING Prescriptions: No Action lisinopril 20 mg tablet 20 mg PO DAILY hydromorphone 4 mg tablet 4 mg PO QID PRN (Reason: Pain) metformin 500 mg tablet extended release 24 hr 1,000 mg PO DAILY Referrals: Jalyn Ojeda FNP [Primary Care Provider, Family Practice] Interventions: Bee-Suicide Risk Severity Scale Last Done: 06/01/25 23:03 Acute Care Transfer Worksheet (ED) Last Done: 06/02/25 15:31 Discharge Date/Time: 06/02/25 15:30 Print Language: Maori
[2025-06-01 22:24] LABS: Cannabinoid Screen Urine Not Detected (Not Detect)
[2025-06-01 22:30] LABS: Acetaminophen LAB < 3 mcg/mL (<30); Alanine Aminotransferase 11 U/L (0-31); Albumin Level 4.4 g/dL (3.5-5.0); Alkaline Phosphatase 105 U/L (39-117); Anion Gap 12 (12-20); Aspartate Amino Transferase 18 U/L (5-31); Blood Urea Nitrogen 10 mg/dL (9-16); Calcium 9.2 mg/dL (8.4-10.2); Carbon Dioxide 28 mmol/L (22-29); Chloride 104 mmol/L (96-108); Creatinine Clr Calc Pharmacy 83.5; Estimated Glomerular Filt Rate > 60; Potassium 2.9 mmol/L (3.3-5.1); Salicylate < 5.0 mg/dL (15-30); Sodium 141 mmol/L (135-145); Total Protein 6.8 g/dL (6.5-8.0)
[2025-06-01 23:01] LABS: Magnesium 2.0 mg/dL (1.6-2.6)
[2025-06-01 23:03] VITALS: BP 182/115; PULSE 81; RESP 16; TEMP 36.9; O2SAT 99
--- NOTE | 2025-06-01 23:16 | PC.NURSE ---
Pt moved to ED 10H for k+ 2.9, provider is aware
[2025-06-01 23:25] VITALS: BP 164/106; PULSE 66; RESP 16; O2SAT 97
[2025-06-01] MEDS: Potassium Chloride ER 20 MEQ TAB.ER.PRT 40 MEQ PO (23:26)
[2025-06-01 23:27] VITALS: BP 164/106
[2025-06-01] MEDS: Potassium Chloride/H20 10 MEQ/100 ML PIGGYBACK 100 MEQ IV (23:30)
[2025-06-02] MEDS: Potassium Chloride/H20 10 MEQ/100 ML PIGGYBACK 100 MEQ IV ×3 (00:32→02:54)
[2025-06-02 01:56] VITALS: BP 160/107; PULSE 66; RESP 15; TEMP 37.1; O2SAT 100
[2025-06-02 04:15] LABS: Potassium 4.3 mmol/L (3.3-5.1)
[2025-06-02 04:32] VITALS: BP 169/101; PULSE 67; RESP 21
--- NOTE | 2025-06-02 04:44 | PC.NURSE ---
PT back in Pod after being medically treated and cleared, aaox4, nad, ambulatory with steady gait
--- NOTE | 2025-06-02 08:28 | PC.NURSE ---
Assumed care, report received. Pt is currently sleeping. she is brought breakfast. safety is maintained.
[2025-06-02 10:35] LABS: UPreg QC Valid YES
[2025-06-02 15:31] VITALS: BP 169/101; PULSE 67; RESP 21; TEMP 37.1
== END 2025-06-02 15:30 ==
PROVIDERS: Physician Assistant Medical; Emergency Provider Emergency Medicine; PCP Nurse Practitioner Family
DX: R45.851 Suicidal ideations (principal); N39.0 Urinary tract infection, site not specified; F11.10 Opioid abuse, uncomplicated; K86.1 Other chronic pancreatitis; I10 Essential (primary) hypertension; Z72.0 Tobacco use
CPT/HCPCS: 36415; 80053; 80143; 80179; 80307; 81001; 81025; 83735; 84132; 85025; 87086; 87088; 87186; 96365; 96366; 96375; 99285; J3475; J3480; S9485

== ENCOUNTER 2025-07-18 20:02 | Emergency (ER) | payer OTHER, SELFPAY ==
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
[2025-07-18 20:09] VITALS: BP 107/76; PULSE 81; RESP 16; TEMP 36.7; O2SAT 98
[2025-07-18 20:17] VITALS: BP 120/74; PULSE 95; O2SAT 100; BMI 22.3
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
[2025-07-18 20:53] LABS: MANUAL DIFF FLAG NO
[2025-07-18 20:54] LABS: Hematocrit 37.5 % (37.0-47.0); Hemoglobin 13.2 g/dl (12.0-16.0); Imm Gran Abs Auto 0.03 X10*3/uL (0.00-0.03); Imm Gran Pct Auto 0.3 % (0.0-0.4); Lymphocytes Absolute Auto 2.9 X10*3/uL (1.2-4.9); Mean Corpuscular HGB Conc 35.2 g/dl (31.0-35.0); Mean Corpuscular Hemoglobin 31.7 pg (27.0-33.0); Mean Corpuscular Volume 90.1 fL (80.0-98.0); NRBC Abs Auto 0.000 X10*3/uL (0.0-0.012); NRBC Pct Auto 0.0 /100WBC (0.0-0.2); Platelet Count 186 X10*3/uL (160-400); Red Blood Count 4.16 X10*6/uL (4.20-5.50); White Blood Count 10.6 X10*3/uL (4.8-10.8)
--- OUTSIDE RECORDS SUMMARY | 2025-07-18 21:07 | XMS_ITS | Clinical Summary ---
Author Organization [facility] Address [address] [place] [address] Care Team Providers Care [employer] Pul[employer] Name Role Phone Jalyn Ojeda MARYBEL Primary [...] drink = 0.6 oz pur e alcohol) [facility] Utilities Answer Date Recorded In the past 12 months has [employer], gas, oil, or water [employer] threatened to shut off services in your [...] place to sleep or slept in a retirement (including now)? No 04/02/2024 Comments Unknown Sex [...] HPV Vaccines (No Doses Required) Completed Insurance [facility] Advance Directives * Full Code (Latest Code Status on File) Date Activated Date Inactivated Comments 04/02/2024 1:03 AM Care Teams [employer] Relationship Specialty Start Date End Date Jalyn Ojeda FNP [address] [place] [id number] PCP - General Family Medicine 04/02/24
[2025-07-18 21:09] LABS: Alanine Aminotransferase 16 U/L (0-31); Albumin Level 4.1 g/dL (3.5-5.0); Alkaline Phosphatase 84 U/L (39-117); Anion Gap 13 (12-20); Aspartate Amino Transferase 18 U/L (5-31); Blood Urea Nitrogen 8 mg/dL (9-16); Calcium 9.1 mg/dL (8.4-10.2); Carbon Dioxide 22 mmol/L (22-29); Chloride 110 mmol/L (96-108); Creatinine Clr Calc Pharmacy 98.3; Estimated Glomerular Filt Rate > 60; Lipase 15 U/L (8-78); Potassium 3.0 mmol/L (3.3-5.1); Sodium 142 mmol/L (135-145); Total Protein 6.6 g/dL (6.5-8.0)
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
[2025-07-18 21:16] LABS: Troponin-I High Sensitivity < 2.7 ng/L (<3.5-17.0)
[2025-07-18] MEDS: iohexoL 350 MG/ML 100 ML INFUS..BTL 85 ML IV (22:36)
[2025-07-18] MEDS: Potassium Chloride ER 20 MEQ TAB.ER.PRT 40 MEQ PO (23:10)
[2025-07-19 00:21] VITALS: BP 146/95; PULSE 86; RESP 20; TEMP 36.6; O2SAT 99
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
[2025-07-19 02:12] VITALS: BP 147/99; PULSE 78; RESP 16; O2SAT 97
[2025-07-19 06:48] VITALS: BP 146/97; PULSE 78; RESP 18; TEMP 36.9; O2SAT 99
== END 2025-07-19 06:49 | disposition home or self-care (01) ==
PROVIDERS: Physician Assistant; Emergency Provider Emergency Medicine; PCP Nurse Practitioner Family
DX: S80.212A Abrasion, left knee, initial encounter (principal); S80.211A Abrasion, right knee, initial encounter; R10.A2 Flank pain, left side; I10 Essential (primary) hypertension; F11.20 Opioid dependence, uncomplicated; V47.5XXA Car driver injured in collision with fixed or stationary object in traffic accident, initial encounter; Y93.9 Activity, unspecified; Y92.410 Unspecified street and highway as the place of occurrence of the external cause; Y99.9 Unspecified external cause status
CPT/HCPCS: 36415; 70450; 71260; 72125; 73564; 74177; 80053; 80307; 83690; 84484; 84702; 85025; 93005; 96360; 96361; 99285; Q9967

== ENCOUNTER → 2025-07-18 20:26 | Outpatient (BNV) | payer MEDICAID, SELFPAY | PROVIDERS: Emergency Provider Emergency Medicine; PCP Nurse Practitioner Family; Visit Provider Internal Medicine | DX: S06.9X9A Unspecified intracranial injury with loss of consciousness of unspecified duration, initial encounter (principal); V89.2XXA Person injured in unspecified motor-vehicle accident, traffic, initial encounter | CPT/HCPCS: 93010 ==

== ENCOUNTER → 2025-07-18 21:48 | Outpatient (BNV) | payer MEDICAID, SELFPAY | PROVIDERS: Emergency Provider Emergency Medicine; PCP Nurse Practitioner Family; Visit Provider Radiology Neuroradiology | DX: R10.812 Left upper quadrant abdominal tenderness (principal); R10.814 Left lower quadrant abdominal tenderness; R10.A2 Flank pain, left side; M25.462 Effusion, left knee; M25.461 Effusion, right knee; Z04.3 Encounter for examination and observation following other accident; V89.2XXA Person injured in unspecified motor-vehicle accident, traffic, initial encounter | CPT/HCPCS: 70450; 71260; 72125; 73564; 74177 ==